=== PATIENT | female | born 1995 | race Caucasian/White ===

== ENCOUNTER 2017-11-30 17:32 | Emergency (ER) | payer OTHER ==
[2017-11-30] MEDS ORDERED: NA CHLORIDE 0.9% 1,000 ML ONE (19:40)
[2017-11-30] MEDS ORDERED: ONDANSETRON 4 MG/2 ML VIAL ONE (19:40)
[2017-11-30 20:04] LABS: Absolute Lymphocytes (CBC) 1.6 K/uL (0.7-4.9); Absolute Monocytes 0.5 K/uL (0.1-1.3); Absolute Neutrophil 13.3 K/uL (1.8-8.0); Basophils % 0.2 % (0-1.3); Eosinophils % 0.1 % (0-4.4); Hematocrit 39.9 % (36.0-45.0); Lymphocytes % 10.4 % (15.3-44.8); MCH 27.2 pg (27.0-35.0); MCV 79.8 fL (80-100); Monocytes % 3.5 % (3.3-12.3); RBC Red Blood Cell Count 4.99 M/uL (3.86-4.86)
[2017-11-30 20:06] LABS: Urine Blood TRACE (NEG); Urine Glucose NEGATIVE (NEG); Urine Protein 2+ (NEG)
[2017-11-30 20:09] LABS: ALT/SGPT 21 U/L (12-78); AST/SGOT 11 U/L (15-37); Albumin 4.4 g/dL (3.4-5.0); Alkaline Phosphatase 63 U/L (45-117); Amylase Level 102 U/L (25-115); BUN Blood Urea Nitrogen 12 mg/dL (7-18); Bicarbonate 22 mmol/L (21-32); Bilirubin Direct < 0.1 mg/dL (0-0.2); Bilirubin Total 0.3 mg/dL (0.2-1.0); Glucose Level 97 mg/dL (74-106); Lipase 78 U/L (73-393); Potassium 3.3 mmol/L (3.5-5.1); Protein, Total 8.9 g/dL (6.4-8.2); Sodium Level 139 mmol/L (136-145)
--- NOTE | 2017-11-30 20:28 | ER ---
Nurse's Notes [facility] Name: Marah Pierce Age: 21 yrs Sex: Female : 1995 Arrival Date: 11/30/2017 Time: 17:33 Bed 30 Private MD: Diagnosis: Vomiting of , unspecified;Hypokalemia; related conditions, unspecified, first trimester Presentation: 11/30 17:43 Presenting complaint: Patient states: "Last time I came to the ER they said I had an aj1 overactive stomach for vomiting. I was told to eat crackers before I get out of bed but I didn't this morning and my nerves are up and I can't eat anything, I tried drinking a Sprite and I even threw that up." Reports abdominal cramping and sore throat, denies diarrhea, fever. States that she is 8 weeks . Transition of care: patient was not received from another setting of care. Onset of symptoms was November 29, 2017. Risk Assessment: Do you want to hurt yourself or someone else? Patient reports no desire to harm self or others. Initial Sepsis Screen: Does the patient meet any 2 criteria? No. Patient's initial sepsis screen is negative. Does the patient have a suspected source of infection? No. Patient's initial sepsis screen is negative. Care prior to arrival: None. 17:43 Method Of Arrival: Ambulatory aj1 17:43 Acuity: TRES 3 aj1 Triage Assessment: 17:49 General: Appears in no apparent distress. uncomfortable, Behavior is calm, cooperative, aj1 appropriate for age. Pain: Complains of pain in right lower quadrant, left lower quadrant, left aspect of posterior pharynx and right aspect of posterior pharynx Pain does not radiate. Pain currently is 5 out of 10 on a pain scale. Quality of pain is described as crampy. GI: Reports nausea, vomiting, Patient currently denies diarrhea. 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 - Social history:: Smoking status: Patient uses tobacco products, denies chronic smoking, but will smoke occasionally. - Ebola Screening: : Patient denies travel to an Ebola-affected area in the 21 days before illness onset. Screenin:10 Abuse screen: Denies threats or abuse. Nutritional screening: Has had N/V for 3 or more mb3 days. Tuberculosis screening: No symptoms or risk factors identified. Fall Risk None identified. Assessment: 21:08 General: Appears in no apparent distress. comfortable, Behavior is calm, cooperative, mb3 appropriate for age. Pain: Denies pain. Neuro: No deficits noted. Cardiovascular: No deficits noted. Respiratory: No deficits noted. GI: Reports nausea, vomiting. GI: Abdomen is flat, Bowel sounds present X 4 quads. Abd is soft and non tender X 4 quads. : No deficits noted. No signs and/or symptoms were reported regarding the genitourinary system. EENT: No deficits noted. No signs and/or symptoms were reported regarding the EENT system. Vital Signs: 17:49 BP 138 / 99; Pulse 98; Resp 18; Temp 98.2; Pulse Ox 99% on R/A; Weight 36.74 kg (R); aj1 Height 4 ft. 11 in. (149.86 cm); Pain 5/10; 18:51 BP 129 / 91; Pulse 76; Resp 16; Pulse Ox 98% on R/A; mt 19:58 BP 120 / 80; Pulse 86; Resp 16; Pulse Ox 100% on R/A; mt 21:11 BP 123 / 79; Pulse 90; Resp 16; Pulse Ox 100% on R/A; mb3 17:49 Body Mass Index 16.36 (36.74 kg, 149.86 cm) aj1 ED Course: 17:33 Patient arrived in ED. sb2 17:46 Triage completed. aj1 17:49 Arm band placed on Patient placed in waiting room, Patient notified of wait time. aj1 18:50 Dennis Kraft, ROVERTO is Primary Nurse. mb3 19:24 Olegario Gomez MD is Attending Physician. emiliano 19:38 Inserted saline lock: 22 gauge in right antecubital area, using aseptic technique. mt Blood collected. 20:28 Joanie White MD is Referral Physician. emiliano 21:09 No provider procedures requiring assistance completed. IV discontinued, intact, mb3 bleeding controlled, No redness/swelling at site. Pressure dressing applied. 21:10 Patient has correct armband on for positive identification. Bed in low position. Call mb3 light in reach. Side rails up X 1. Administered Medications: 19:40 Drug: Zofran 4 mg Route: IVP; Site: right antecubital; mb3 20:44 Follow up: Response: No adverse reaction mb3 19:45 Drug: NS 0.9% 1000 ml Route: IV; Rate: 1 bolus; Site: right antecubital; mb3 20:44 Follow up: Response: No adverse reaction; IV Status: Completed infusion; IV Intake: mb3 1000ml 20:44 Drug: Potassium Chloride 20 mEq Route: PO; mb3 21:11 Follow up: Response: No adverse reaction mb3 Intake: 20:44 IV: 1000ml; Total: 1000ml. mb3 Outcome: 20:28 Discharge ordered by . emiliano 21:10 Discharged to home ambulatory, with family. mb3 21:10 Condition: stable 21:10 Discharge instructions given to patient, Instructed on discharge instructions, follow up and referral plans. medication usage, Demonstrated understanding of instructions, follow-up care, medications, Prescriptions given X 2. 21:12 Patient left the ED. mb3 Signatures: Chasidy Nagel, RN RN aj1 Olegario Gomez MD MD cha Thompson, Moriah mt Billeau, Sheri sb2 Dennis Kraft, RN RN mb3 Corrections: (The following items were deleted from the chart) 17:52 17:43 Presenting complaint: Patient states: "Last time I came to the ER they said I had aj1 an overactive stomach for vomiting. I was told to eat crackers before I get out of bed but I didn't this morning and my nerves are up and I can't eat anything, I tried drinking a Sprite and I even threw that up." Reports abdominal cramping and sore throat, denies diarrhea, fever aj1
--- NOTE | 2017-11-30 20:28 | EDPHYS ---
Physician Documentation [facility] Name: Marah Pierce Age: 21 yrs Sex: Female : 1995 Arrival Date: 11/30/2017 Time: 17:33 Bed 30 Private MD: ED Physician Olegario Gomez HPI: 11/30 20:25 This 21 yrs old Female presents to ER via Ambulatory with complaints of emiliano Nausea/Vomiting. 20:25 The patient presents to the emergency department with nausea, vomiting. Onset: The emiliano symptoms/episode began/occurred 1 week(s) ago. Possible causes: . The symptoms are aggravated by nothing. The symptoms are alleviated by remaining still. Associated signs and symptoms: The patient has no apparent associated signs or symptoms. Severity of symptoms: At their worst the symptoms were. The patient has not experienced similar symptoms in the past. 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 - Social history:: Smoking status: Patient uses tobacco products, denies chronic smoking, but will smoke occasionally. - Ebola Screening: : Patient denies travel to an Ebola-affected area in the 21 days before illness onset. ROS: 20:25 Constitutional: Negative for fever, chills, and weight loss, Eyes: Negative for injury, emiliano pain, redness, and discharge, ENT: Negative for injury, pain, and discharge, Neck: Negative for injury, pain, and swelling, Cardiovascular: Negative for chest pain, palpitations, and edema, Respiratory: Negative for shortness of breath, cough, wheezing, and pleuritic chest pain, Back: Negative for injury and pain, : Negative for injury, bleeding, discharge, and swelling, MS/Extremity: Negative for injury and deformity, Skin: Negative for injury, rash, and discoloration, Neuro: Negative for headache, weakness, numbness, tingling, and seizure, Psych: Negative for depression, anxiety, suicide ideation, homicidal ideation, and hallucinations, Allergy/Immunology: Negative for hives, rash, and allergies, Endocrine: Negative for neck swelling, polydipsia, polyuria, polyphagia, and marked weight changes, Hematologic/Lymphatic: Negative for swollen nodes, abnormal bleeding, and unusual bruising. 20:25 Abdomen/GI: Positive for nausea and vomiting. Exam: 20:25 Constitutional: This is a well developed, well nourished patient who is awake, alert, emiliano and in no acute distress. Head/Face: Normocephalic, atraumatic. Eyes: Pupils equal round and reactive to light, extra-ocular motions intact. Lids and lashes normal. Conjunctiva and sclera are non-icteric and not injected. Cornea within normal limits. Periorbital areas with no swelling, redness, or edema. ENT: Nares patent. No nasal discharge, no septal abnormalities noted. Tympanic membranes are normal and external auditory canals are clear. Oropharynx with no redness, swelling, or masses, exudates, or evidence of obstruction, uvula midline. Mucous membranes moist. Neck: Trachea midline, no thyromegaly or masses palpated, and no cervical lymphadenopathy. Supple, full range of motion without nuchal rigidity, or vertebral point tenderness. No Meningismus. Chest/axilla: Normal chest wall appearance and motion. Nontender with no deformity. No lesions are appreciated. Cardiovascular: Regular rate and rhythm with a normal S1 and S2. No gallops, murmurs, or rubs. Normal PMI, no JVD. No pulse deficits. Respiratory: Lungs have equal breath sounds bilaterally, clear to auscultation and percussion. No rales, rhonchi or wheezes noted. No increased work of breathing, no retractions or nasal flaring. Back: No spinal tenderness. No costovertebral tenderness. Full range of motion. Female : Normal external genitalia. Skin: Warm, dry with normal turgor. Normal color with no rashes, no lesions, and no evidence of cellulitis. MS/ Extremity: Pulses equal, no cyanosis. Neurovascular intact. Full, normal range of motion. Neuro: Awake and alert, GCS 15, oriented to person, place, time, and situation. Cranial nerves II-XII grossly intact. Motor strength 5/5 in all extremities. Sensory grossly intact. Cerebellar exam normal. Normal gait. Psych: Awake, alert, with orientation to person, place and time. Behavior, mood, and affect are within normal limits. Vital Signs: 17:49 BP 138 / 99; Pulse 98; Resp 18; Temp 98.2; Pulse Ox 99% on R/A; Weight 36.74 kg (R); aj1 Height 4 ft. 11 in. (149.86 cm); Pain 5/10; 18:51 BP 129 / 91; Pulse 76; Resp 16; Pulse Ox 98% on R/A; mt 19:58 BP 120 / 80; Pulse 86; Resp 16; Pulse Ox 100% on R/A; mt 21:11 BP 123 / 79; Pulse 90; Resp 16; Pulse Ox 100% on R/A; mb3 17:49 Body Mass Index 16.36 (36.74 kg, 149.86 cm) aj1 MDM: 19:24 Patient medically screened. [facility] 11/30 19:00 Order name: Urine Dipstick--Ancillary (enter results); Complete Time: 20:24 11/30 19:00 Order name: Urine --Ancillary (enter results); Complete Time: 20:24 11/30 19:24 Order name: Amylase, Serum; Complete Time: 20:24 [facility] 11/30 19:24 Order name: Basic Metabolic Panel; Complete Time: 20:24 [facility] 11/30 19:24 Order name: CBC with Diff [facility] 11/30 19:24 Order name: Creatinine for Radiology; Complete Time: 20:24 [facility] 11/30 19:24 Order name: Urine Test (obtain specimen); Complete Time: 19:38 [facility] 11/30 19:24 Order name: Hepatic Function; Complete Time: 20:24 [facility] 11/30 19:24 Order name: Lipase; Complete Time: 20:24 [facility] 11/30 20:06 Order name: CBC Smear Scan [facility] 11/30 19:24 Order name: IV Saline Lock; Complete Time: 19:38 [facility] 11/30 19:24 Order name: Labs collected and sent; Complete Time: 19:38 [facility] 11/30 19:24 Order name: Urine Dipstick-Ancillary (obtain specimen); Complete Time: 19:38 [facility] Administered Medications: 19:40 Drug: Zofran 4 mg Route: IVP; Site: right antecubital; mb3 20:44 Follow up: Response: No adverse reaction mb3 19:45 Drug: NS 0.9% 1000 ml Route: IV; Rate: 1 bolus; Site: right antecubital; mb3 20:44 Follow up: Response: No adverse reaction; IV Status: Completed infusion; IV Intake: mb3 1000ml 20:44 Drug: Potassium Chloride 20 mEq Route: PO; mb3 21:11 Follow up: Response: No adverse reaction mb3 Disposition: 11/30/17 20:28 Discharged to Home. Impression: Vomiting of , unspecified, Hypokalemia, related conditions, unspecified, first trimester. - Condition is Stable. - Discharge Instructions: Potassium Content of Foods, Hyperemesis Gravidarum, Morning Sickness, [id number], Morning Sickness, Pelvic Rest, Hypokalemia. - Prescriptions for Diclegis 10- 10 mg Oral tablet,delayed release (DR/EC) - take 1 tablet by ORAL route 3 times per day and 2 tablets at bedtime; 60 tablet. Vitamin 27- 0.8 mg Oral Tablet - take 1 tablet by ORAL route once daily; 30 tablet. Zofran 4 mg Oral Tablet - take 1 tablet by ORAL route every 12 hours As needed; 20 tablet. - Medication Reconciliation Form, Thank You Letter, Antibiotic Education, Prescription Opioid Use form. - Follow up: Private Physician; When: 2 - 3 days; Reason: Recheck today's complaints, Continuance of care, Re-evaluation by your physician. Follow up: Joanie White MD; When: 2 - 3 days; Reason: Recheck today's complaints, Re-evaluation by your physician. - Problem is new. - Symptoms have improved. Signatures: Dispatcher [employer] EDChasidy Phillips RN RN aj1 Olegario Gomez MD MD cha Barnett, Mark RN RN mb3 Corrections: (The following items were deleted from the chart) 20:28 20:28 11/30/2017 20:28 Discharged to Home. Impression: Vomiting of , emiliano unspecified; Hypokalemia; related conditions, unspecified, first trimester. Condition is Stable. Forms are Medication Reconciliation Form, Thank You Letter, Antibiotic Education, Prescription Opioid Use. Follow up: Private Physician; When: 2 - 3 days; Reason: Recheck today's complaints, Continuance of care, Re-evaluation by your physician. Problem is new. Symptoms have improved. emiliano 21:12 20:28 11/30/2017 20:28 Discharged to Home. Impression: Vomiting of , mb3 unspecified; Hypokalemia; related conditions, unspecified, first trimester. Condition is Stable. Forms are Medication Reconciliation Form, Thank You Letter, Antibiotic Education, Prescription Opioid Use. Follow up: Private Physician; When: 2 - 3 days; Reason: Recheck today's complaints, Continuance of care, Re-evaluation by your physician. Follow up: Joanie White; When: 2 - 3 days; Reason: Recheck today's complaints, Re-evaluation by your physician. Problem is new. Symptoms have improved. emiliano
[2017-11-30 20:35] LABS: Blood Morphology Comment NOT SEEN (NOT SEEN); Platelet Estimate ADEQ; Urine White Blood Cell Casts OK
[2017-11-30] MEDS ORDERED: POTASSIUM 25 MEQ EFFERV TAB ONE (20:41)
== END 2017-11-30 21:12 | disposition home or self-care (01) ==
LOC: ER 17:32
DX: O21.9 Vomiting of pregnancy, unspecified (principal); E87.6 Hypokalemia; Z88.7 Allergy status to serum and vaccine; Z3A.00 Weeks of gestation of pregnancy not specified
CPT/HCPCS: 36415; 80048; 80076; 81003; 81025; 82150; 83690; 85025; 96361; 96374; 99284; J2405; J7030

== ENCOUNTER 2018-09-07 18:37 | Emergency (ER) | payer OTHER ==
--- OUTSIDE RECORDS SUMMARY | 2018-09-07 18:45 | XMS REPORT ---
:1995 [facility] Address [address] [place] [address] Dr. Blanchard [address] [place] [id number] Care Team Providers Name Role Phone Unavailable Unavailable Unavailable Problems This patient has no known problems. Allergies, Adverse Reactions, Alerts This patient has no known allergies or adverse reactions. Medications This patient has no known medications.
[2018-09-07] MEDS ORDERED: NA CHLORIDE 0.9% 1,000 ML ONE (19:26)
[2018-09-07] MEDS ORDERED: ONDANSETRON 4 MG/2 ML VIAL ONE (19:26)
[2018-09-07 19:51] LABS: Absolute Lymphocytes (CBC) 1.5 K/uL (0.7-4.9); Absolute Monocytes 0.6 K/uL (0.1-1.3); Absolute Neutrophil 9.7 K/uL (1.8-8.0); Basophils % 0.1 % (0-1.3); Eosinophils % 1.1 % (0-4.4); Hematocrit 47.9 % (36.0-45.0); Lymphocytes % 12.9 % (15.3-44.8); MPV 9.6 fL (7.6-11.3); Monocytes % 4.8 % (3.3-12.3); RBC Red Blood Cell Count 5.89 M/uL (3.86-4.86)
[2018-09-07 20:08] LABS: Albumin 4.8 g/dL (3.4-5.0); Bilirubin Direct 0.1 mg/dL (0-0.2); Bilirubin Total 0.6 mg/dL (0.2-1.0); Potassium 3.5 mmol/L (3.5-5.1); Protein, Total 8.7 g/dL (6.4-8.2)
--- NOTE | 2018-09-07 21:02 | ER ---
Nurse's Notes [facility] Name: Marah Pierce Age: 22 yrs Sex: Female : 1995 Arrival Date: 09/07/2018 Time: 18:43 Bed 16 Private MD: Diagnosis: Noninfective gastroenteritis and colitis, unspecified Presentation: 09/07 18:48 Presenting complaint: N/V/D and abdominal pain x 3 hrs. Transition of care: patient was hb not received from another setting of care. Onset of symptoms was September 07, 2018. Risk Assessment: Do you want to hurt yourself or someone else? Patient reports no desire to harm self or others. Care prior to arrival: None. 18:48 Method Of Arrival: Ambulatory hb 18:48 Acuity: TRES 3 hb 19:08 Initial Sepsis Screen: Does the patient meet any 2 criteria? No. Patient's initial cc3 sepsis screen is negative. Does the patient have a suspected source of infection? No. Patient's initial sepsis screen is negative. Triage Assessment: 19:08 General: Appears in no apparent distress. comfortable, Behavior is calm, cooperative, cc3 appropriate for age. Pain: Denies pain. EENT: No signs and/or symptoms were reported regarding the EENT system. Neuro: Level of Consciousness is awake, alert, obeys commands, Oriented to person, place, time, situation, Appropriate for age. Cardiovascular: Patient's skin is warm and dry. Respiratory: Airway is patent Respiratory effort is even, unlabored, Respiratory pattern is regular, symmetrical. GI: Reports vomiting. : No signs and/or symptoms were reported regarding the genitourinary system. Derm: No signs and/or symptoms reported regarding the dermatologic system. Musculoskeletal: Circulation, motion, and sensation intact. Range of motion: intact in all extremities. Historical: - Allergies: 18:49 flu shot; hb - Home Meds: 18:49 promethazine suppository [Active]; hb - PSHx: 18:49 None; hb - Immunization history:: Adult Immunizations up to date. - Social history:: Smoking status: Patient uses tobacco products, smokes one-half pack cigarettes per day. - Ebola Screening: : No symptoms or risks identified at this time. Screenin:08 Abuse screen: Denies threats or abuse. Denies injuries from another. Nutritional cc3 screening: No deficits noted. Tuberculosis screening: No symptoms or risk factors identified. Fall Risk Ambulatory Aid- None/Bed Rest/Nurse Assist (0 pts). Gait- Normal/Bed Rest/Wheelchair (0 pts) Mental Status- Oriented to own ability (0 pts). Assessment: 19:08 GI: Abdomen is flat. cc3 20:12 Reassessment: Patient appears in no apparent distress at this time. Patient and/or cc3 family updated on plan of care and expected duration. Pain level reassessed. Patient is alert, oriented x 3, equal unlabored respirations, skin warm/dry/pink. 21:15 Reassessment: Patient appears in no apparent distress at this time. Patient and/or cc3 family updated on plan of care and expected duration. Pain level reassessed. Patient is alert, oriented x 3, equal unlabored respirations, skin warm/dry/pink. ROSE Yoder discharged the patient home with prescription given. IV cannula removed and patient left ER vitally stable and ambulatory. Vital Signs: 18:48 BP 127 / 83; Pulse 88; Resp 16; Temp 97.8; Pulse Ox 100% on R/A; Pain 9/10; hb 19:30 BP 121 / 77; Pulse 82; Resp 15 S; Pulse Ox 100% on R/A; cc3 20:19 BP 118 / 81; Pulse 84; Resp 15 S; Pulse Ox 100% on R/A; cc3 21:06 BP 120 / 79; Pulse 87; Resp 16 S; Pulse Ox 99% on R/A; cc3 ED Course: 18:43 Patient arrived in ED. ss4 18:49 Triage completed. hb 18:49 Arm band placed on. hb 18:53 [facility]. kb 18:53 Josse Peres MD is Attending Physician. kb 19:08 Parvin Tilley is Primary Nurse. cc3 19:08 Patient has correct armband on for positive identification. Bed in low position. Call cc3 light in reach. Side rails up X 1. Pulse ox on. NIBP on. 19:30 Inserted saline lock: 20 gauge in left antecubital area, using aseptic technique. Blood cc3 collected. 21:15 No provider procedures requiring assistance completed. cc3 21:15 IV discontinued, intact, bleeding controlled, No redness/swelling at site. Pressure cc3 dressing applied. Administered Medications: 19:30 Drug: NS 0.9% 1000 ml Route: IV; Rate: 1000 ml; Site: left antecubital; cc3 20:35 Follow up: Response: No adverse reaction; IV Status: Completed infusion; IV Intake: cc3 1000ml 19:32 Drug: Zofran 4 mg Route: IVP; Site: left antecubital; cc3 20:00 Follow up: Response: No adverse reaction; Nausea is decreased cc3 Intake: 20:35 IV: 1000ml; Total: 1000ml. cc3 Outcome: 21:01 Discharge ordered by . viri 21:15 Discharged to home ambulatory. cc3 21:15 Condition: stable 21:15 Discharge instructions given to patient, Instructed on discharge instructions, follow up and referral plans. medication usage, Demonstrated understanding of instructions, follow-up care, medications, Prescriptions given X 2. 21:18 Patient left the ED. cc3 Signatures: Angela Yoder, CARMELINAC ZULEMA-Carola Dai, RN RN Parvin Davis cc3 Paz Cao 4
--- NOTE | 2018-09-07 21:02 | EDPHYS ---
Physician Documentation [facility] Name: Marah Pierce Age: 22 yrs Sex: Female : 1995 Arrival Date: 09/07/2018 Time: 18:43 Bed 16 Private MD: ED Physician Josse Peres HPI: 09/07 20:34 This 22 yrs old Female presents to ER via Ambulatory with complaints of kb Vomiting. 20:34 The patient presents to the emergency department with nausea, vomiting, diarrhea, kb abdominal pain. Onset: The symptoms/episode began/occurred this morning. Possible causes: unknown. The symptoms are aggravated by nothing. The symptoms are alleviated by nothing. Associated signs and symptoms: Pertinent positives: abdominal pain, diarrhea, nausea, vomiting. Severity of symptoms: At their worst the symptoms were moderate in the emergency department the symptoms are unchanged. The patient has not experienced similar symptoms in the past. The patient has not recently seen a physician. Pt reports she woke up with nausea, malaise and diarrhea. 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 Denies fever. Denies sick contacts. Historical: - Allergies: 18:49 flu shot; hb - Home Meds: 18:49 promethazine suppository [Active]; hb - PSHx: 18:49 None; hb - Immunization history:: Adult Immunizations up to date. - Social history:: Smoking status: Patient uses tobacco products, smokes one-half pack cigarettes per day. - Ebola Screening: : No symptoms or risks identified at this time. ROS: 20:31 Constitutional: Negative for fever, chills, and weight loss, Cardiovascular: Negative kb for chest pain, palpitations, and edema, Respiratory: Negative for shortness of breath, cough, wheezing, and pleuritic chest pain, Back: Negative for injury and pain, : Negative for injury, bleeding, discharge, and swelling, MS/Extremity: Negative for injury and deformity, Skin: Negative for injury, rash, and discoloration, Neuro: Negative for headache, weakness, numbness, tingling, and seizure. 20:31 Abdomen/GI: Positive for abdominal pain, nausea, vomiting, and diarrhea, Negative for constipation, abdominal cramps, abdominal distension, anorexia. Exam: 20:31 Constitutional: This is a well developed, well nourished patient who is awake, alert, kb and in no acute distress. Head/Face: Normocephalic, atraumatic. ENT: Nares patent. No nasal discharge, no septal abnormalities noted. Tympanic membranes are normal and external auditory canals are clear. Oropharynx with no redness, swelling, or masses, exudates, or evidence of obstruction, uvula midline. Mucous membranes moist. Neck: Trachea midline, no thyromegaly or masses palpated, and no cervical lymphadenopathy. Supple, full range of motion without nuchal rigidity, or vertebral point tenderness. No Meningismus. Chest/axilla: Normal chest wall appearance and motion. Nontender with no deformity. No lesions are appreciated. Cardiovascular: Regular rate and rhythm with a normal S1 and S2. No gallops, murmurs, or rubs. Normal PMI, no JVD. No pulse deficits. Respiratory: Lungs have equal breath sounds bilaterally, clear to auscultation and percussion. No rales, rhonchi or wheezes noted. No increased work of breathing, no retractions or nasal flaring. Abdomen/GI: Soft, non-tender, with normal bowel sounds. No distension or tympany. No guarding or rebound. No evidence of tenderness throughout. Skin: Warm, dry with normal turgor. Normal color with no rashes, no lesions, and no evidence of cellulitis. MS/ Extremity: Pulses equal, no cyanosis. Neurovascular intact. Full, normal range of motion. Neuro: Awake and alert, GCS 15, oriented to person, place, time, and situation. Cranial nerves II-XII grossly intact. Motor strength 5/5 in all extremities. Sensory grossly intact. Cerebellar exam normal. Normal gait. Vital Signs: 18:48 BP 127 / 83; Pulse 88; Resp 16; Temp 97.8; Pulse Ox 100% on R/A; Pain 9/10; hb 19:30 BP 121 / 77; Pulse 82; Resp 15 S; Pulse Ox 100% on R/A; cc3 20:19 BP 118 / 81; Pulse 84; Resp 15 S; Pulse Ox 100% on R/A; cc3 21:06 BP 120 / 79; Pulse 87; Resp 16 S; Pulse Ox 99% on R/A; cc3 MDM: 18:53 Patient medically screened. kb 20:33 Data reviewed: vital signs, nurses notes. Data interpreted: Pulse oximetry: on room air kb is 100 %. Interpretation: normal. Counseling: I had a detailed discussion with the patient and/or guardian regarding: the historical points, exam findings, and any diagnostic results supporting the discharge/admit diagnosis, lab results, the need for outpatient follow up, a family practitioner, to return to the emergency department if symptoms worsen or persist or if there are any questions or concerns that arise at home. 09/07 19:05 Order name: Basic Metabolic Panel; Complete Time: 20:09 kb 09/07 19:05 Order name: CBC with Diff; Complete Time: 19:57 kb 09/07 19:05 Order name: Hepatic Function; Complete Time: 20:09 kb 09/07 19:05 Order name: Lipase; Complete Time: 20:09 kb 09/07 19:05 Order name: Flu; Complete Time: 20:09 kb 09/07 19:05 Order name: IV Saline Lock; Complete Time: 19:37 kb 09/07 19:05 Order name: Labs collected and sent; Complete Time: 19:37 kb 09/07 20:35 Order name: PO challenge; Complete Time: 20:57 kb Administered Medications: 19:30 Drug: NS 0.9% 1000 ml Route: IV; Rate: 1000 ml; Site: left antecubital; cc3 20:35 Follow up: Response: No adverse reaction; IV Status: Completed infusion; IV Intake: cc3 1000ml 19:32 Drug: Zofran 4 mg Route: IVP; Site: left antecubital; cc3 20:00 Follow up: Response: No adverse reaction; Nausea is decreased cc3 Disposition: 09/08 07:20 Co-signature as Attending Physician, Josse Peres MD I agree with the assessment and kdr plan of care. Disposition: 09/07/18 21:01 Discharged to Home. Impression: Noninfective gastroenteritis and colitis, unspecified. - Condition is Stable. - Discharge Instructions: Food Choices to Help Relieve Diarrhea, Adult, Viral Gastroenteritis, Adult, [id number]. - Prescriptions for Bentyl 20 mg Oral Tablet - take 1 tablet by ORAL route every 6 hours As needed; 20 tablet. Zofran 4 mg Oral Tablet - take 1 tablet by ORAL route every 6 hours As needed; 20 tablet. - Medication Reconciliation Form, Thank You Letter, Antibiotic Education, Prescription Opioid Use form. - Follow up: Emergency Department; When: As needed; Reason: Worsening of condition. Follow up: Private Physician; When: 2 - 3 days; Reason: Recheck today's complaints, Continuance of care, Re-evaluation by your physician. Signatures: Dispatcher [employer] EDMS Angela Yoder, FRONT OFFICE ATTENDANT-C FRONT OFFICE ATTENDANT-Ckb Josse Peres MD MD [facility] Carola Santo RN RN Parvin Tilley cc3 Corrections: (The following items were deleted from the chart) 09/07 21:18 21:01 09/07/2018 21:01 Discharged to Home. Impression: Noninfective gastroenteritis and cc3 colitis, unspecified. Condition is Stable. Forms are Medication Reconciliation Form, Thank You Letter, Antibiotic Education, Prescription Opioid Use. Follow up: Emergency Department; When: As needed; Reason: Worsening of condition. Follow up: Private Physician; When: 2 - 3 days; Reason: Recheck today's complaints, Continuance of care, Re-evaluation by your physician. kb
== END 2018-09-07 21:18 | disposition home or self-care (01) ==
LOC: ER 18:37
DX: K52.9 Noninfective gastroenteritis and colitis, unspecified (principal); Z88.7 Allergy status to serum and vaccine
CPT/HCPCS: 36415; 80048; 80076; 83690; 85025; 87804; 96361; 96374; 99284; J2405; J7030

== ENCOUNTER 2018-11-29 19:41 | Emergency (ER) | payer OTHER ==
--- OUTSIDE RECORDS SUMMARY | 2018-11-29 19:44 | XMS REPORT ---
:1995 Author Organization [facility] Address [facility] [place] [address] [place] [id number] Care Team Providers Name Role Phone Unavailable Unavailable Unavailable Problems This patient has no known problems. Allergies, Adverse Reactions, Alerts This patient has no known allergies or adverse reactions. Medications This patient has no known medications.
[2018-11-29] MEDS ORDERED: KETOROLAC 30 MG/ML INJ ONE (21:14)
[2018-11-29] MEDS ORDERED: DEXAMETHASONE 10 MG/ML VIAL ONE (21:14)
[2018-11-29] MEDS ORDERED: CLINDAMYCIN 600MG/D5W 600 MG/50 ML BAG IV ONE (21:14)
--- NOTE | 2018-11-29 21:37 | ER ---
Nurse's Notes [facility] Name: Marah Pierce Age: 22 yrs Sex: Female : 1995 Arrival Date: 11/29/2018 Time: 19:44 Bed 24 Private MD: Diagnosis: Acute pharyngitis Presentation: 11/29 19:45 Presenting complaint: Patient states: Abscess to left tonsil for 5 days. Care prior to aj arrival: None. 19:45 Method Of Arrival: Ambulatory aj 19:45 Acuity: TRES 3 aj 21:17 Transition of care: patient was not received from another setting of care. Onset of mg2 symptoms was November 2018. Risk Assessment: Do you want to hurt yourself or someone else? Patient reports no desire to harm self or others. Initial Sepsis Screen: Does the patient meet any 2 criteria? No. Patient's initial sepsis screen is negative. Does the patient have a suspected source of infection? No. Patient's initial sepsis screen is negative. Triage Assessment: 19:46 General: Appears in no apparent distress. comfortable, Behavior is calm, cooperative, aj appropriate for age. Pain: Complains of pain in left aspect of posterior pharynx. EENT: Reports pain in left aspect of posterior pharynx. 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 - Social history:: Smoking status: unknown. - Ebola Screening: : No symptoms or risks identified at this time. Screenin:15 Abuse screen: Denies threats or abuse. Denies injuries from another. Nutritional mg2 screening: No deficits noted. Tuberculosis screening: No symptoms or risk factors identified. Fall Risk IV access (20 points). Assessment: 21:13 General: Appears in no apparent distress. comfortable, Behavior is calm, cooperative. mg2 Pain: Complains of pain in throat Pain does not radiate. Pain currently is 4 out of 10 on a pain scale. Quality of pain is described as aching, Pain began gradually, Is intermittent. Neuro: Level of Consciousness is awake, alert, obeys commands, Oriented to person, place, time, situation. Cardiovascular: Capillary refill < 3 seconds Patient's skin is warm and dry. Respiratory: Airway is patent Respiratory effort is even, unlabored, Respiratory pattern is regular, symmetrical. GI: No signs and/or symptoms were reported involving the gastrointestinal system. : No signs and/or symptoms were reported regarding the genitourinary system. EENT: Throat abscess in the tonsil. Derm: Skin is intact, is healthy with good turgor, Skin is pink, warm \T\ dry. normal. Musculoskeletal: Circulation, motion, and sensation intact. Capillary refill < 3 seconds. Vital Signs: 19:46 BP 133 / 85; Pulse 89; Resp 17; Temp 97.7; Pulse Ox 99% on R/A; Weight 35.38 kg; Height aj 4 ft. 11 in. (149.86 cm); 21:17 BP 106 / 78; Pulse 72; Resp 18; Temp 98; Pulse Ox 98% on R/A; mg2 21:55 BP 103 / 72; Pulse 80; Resp 18; Temp 98; Pulse Ox 100% on R/A; Pain 4/10; mg2 19:46 Body Mass Index 15.75 (35.38 kg, 149.86 cm) ED Course: 19:44 Patient arrived in ED. es 19:46 Triage completed. aj 19:46 Arm band placed on left wrist. Patient placed in an exam room. aj 19:49 Rich Burgos, ROVERTO is Primary Nurse. mg2 19:56 Richard Guerra PA is PHCP. jr8 19:56 Olegario Gomez MD is Attending Physician. jr8 21:16 No provider procedures requiring assistance completed. Inserted saline lock: 20 gauge mg2 in right antecubital area, using aseptic technique. Blood collected. by Nesha grounds and nursery specialist. 21:17 Patient has correct armband on for positive identification. Pulse ox on. NIBP on. mg2 21:36 Paz Lantigua MD is Referral Physician. jr8 21:55 IV discontinued, intact, bleeding controlled, No redness/swelling at site. Pressure mg2 dressing applied. Administered Medications: 21:13 Drug: Decadron - Dexamethasone 10 mg Route: IVP; Site: right antecubital; mg2 21:59 Follow up: Response: No adverse reaction; Marked relief of symptoms mg2 21:13 Drug: Clindamycin 600 mg Route: IVPB; Infused Over: 30 mins; Site: right antecubital; mg2 21:58 Follow up: Response: No adverse reaction; IV Status: Completed infusion mg2 21:13 Drug: TORadol - Ketorolac 15 mg Route: IVP; Site: right antecubital; mg2 21:57 Follow up: Response: No adverse reaction; Marked relief of symptoms mg2 21:58 Follow up: Response: No adverse reaction; Marked relief of symptoms mg2 Outcome: 21:37 Discharge ordered by MD. oglesby 21:55 Discharged to home ambulatory, with family. mg2 21:55 Condition: stable 21:55 Discharge instructions given to patient, family, Instructed on discharge instructions, follow up and referral plans. medication usage, Demonstrated understanding of instructions, follow-up care, medications, Prescriptions given X 3. 22:02 Patient left the ED. mg2 Signatures: Vy Barclay, RN RN Farida Kramer Josh, PA PA jr8 Rich Burgos RN RN mg2
--- NOTE | 2018-11-29 21:38 | EDPHYS ---
Physician Documentation [facility] Name: Marah Pierce Age: 22 yrs Sex: Female : 1995 Arrival Date: 11/29/2018 Time: 19:44 Bed 24 Private MD: ED Physician Olegario Gomez HPI: 11/29 20:44 This 22 yrs old Female presents to ER via Ambulatory with complaints of jr8 Abscess. 20:44 The patient presents with sore throat. The patient describes throat pain as constant. jr8 Onset: The symptoms/episode began/occurred gradually, 5 day(s) ago. Severity of symptoms: At their worst the symptoms were mild, in the emergency department the symptoms are unchanged. Modifying factors: The symptoms are alleviated by nothing, the symptoms are aggravated by swallowing, Patient's oral intake status: good. Associated signs and symptoms: The patient has no apparent associated signs or symptoms. The patient has experienced similar episodes in the past, a few times. The patient has not recently seen a physician. Patient stated that she has had peritonsillar abscesses in the past and feels that she has another one. Denies fevers . 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 - Social history:: Smoking status: unknown. - Ebola Screening: : No symptoms or risks identified at this time. ROS: 20:44 Eyes: Negative for injury, pain, redness, and discharge, Neck: Negative for injury, jr8 pain, and swelling, Cardiovascular: Negative for chest pain, palpitations, and edema, Respiratory: Negative for shortness of breath, cough, wheezing, and pleuritic chest pain, Abdomen/GI: Negative for abdominal pain, nausea, vomiting, diarrhea, and constipation, Back: Negative for injury and pain, MS/Extremity: Negative for injury and deformity, Skin: Negative for injury, rash, and discoloration, Neuro: Negative for headache, weakness, numbness, tingling, and seizure. 20:44 Constitutional: Negative for fever. 20:44 ENT: Positive for sore throat, Negative for drainage from ear(s), ear pain, rhinorrhea, sinus congestion, sinus pain, difficulty swallowing, difficulty handling secretions, hoarseness. Exam: 20:44 Eyes: Pupils equal round and reactive to light, extra-ocular motions intact. Lids and jr8 lashes normal. Conjunctiva and sclera are non-icteric and not injected. Cornea within normal limits. Periorbital areas with no swelling, redness, or edema. Neck: Trachea midline, no thyromegaly or masses palpated, and no cervical lymphadenopathy. Supple, full range of motion without nuchal rigidity, or vertebral point tenderness. No Meningismus. Cardiovascular: Regular rate and rhythm with a normal S1 and S2. No gallops, murmurs, or rubs. Normal PMI, no JVD. No pulse deficits. Respiratory: Lungs have equal breath sounds bilaterally, clear to auscultation and percussion. No rales, rhonchi or wheezes noted. No increased work of breathing, no retractions or nasal flaring. Abdomen/GI: Soft, non-tender, with normal bowel sounds. No distension or tympany. No guarding or rebound. No evidence of tenderness throughout. Back: No spinal tenderness. No costovertebral tenderness. Full range of motion. Skin: Warm, dry with normal turgor. Normal color with no rashes, no lesions, and no evidence of cellulitis. MS/ Extremity: Pulses equal, no cyanosis. Neurovascular intact. Full, normal range of motion. Neuro: Awake and alert, GCS 15, oriented to person, place, time, and situation. Cranial nerves II-XII grossly intact. Motor strength 5/5 in all extremities. Sensory grossly intact. Cerebellar exam normal. Normal gait. 20:44 ENT: Exam is negative for earache, ear discharge, TM abnormalities, nasal discharge, Mouth: Lips: moist, Oral mucosa: pink and intact, moist, Gums: pink, Tongue: is moist, Posterior pharynx: Airway: patent, Tonsils: are normal in appearance, with erythema, no exudate, no ulcerations, Uvula: midline, non-edematous, no erythema, swelling, is not appreciated, erythema, that is mild, Mild swelling noted to left peritonsillar region without fluctuance or pustulous mass . Vital Signs: 19:46 BP 133 / 85; Pulse 89; Resp 17; Temp 97.7; Pulse Ox 99% on R/A; Weight 35.38 kg; Height aj 4 ft. 11 in. (149.86 cm); 21:17 BP 106 / 78; Pulse 72; Resp 18; Temp 98; Pulse Ox 98% on R/A; mg2 21:55 BP 103 / 72; Pulse 80; Resp 18; Temp 98; Pulse Ox 100% on R/A; Pain 4/10; mg2 19:46 Body Mass Index 15.75 (35.38 kg, 149.86 cm) aj MDM: 19:57 Patient medically screened. jr8 20:44 Data reviewed: vital signs, nurses notes, and as a result, I will discharge patient. jr8 Data interpreted: Pulse oximetry: on room air is 99 %. Interpretation: normal. Counseling: I had a detailed discussion with the patient and/or guardian regarding: the historical points, exam findings, and any diagnostic results supporting the discharge/admit diagnosis, the need for outpatient follow up, an ENT specialist, to return to the emergency department if symptoms worsen or persist or if there are any questions or concerns that arise at home. Response to treatment: the patient's symptoms have markedly improved after treatment. ED course: Discussed with patient that there is only mild increase in size on left peritonsillar region when compared to right. Equal erythema noted on both sides. No appreciated fluctuance palpated. At this time if there is a peritonsillar abscess it is minimal in nature. Treatment with steroids and antibiotics reasonable at this time along with f/u with ENT. If at any point she gets worse or the area starts to swell to come back for further evaluation. Patient good with this plan and will f/u. 11/29 20:28 Order name: IV; Complete Time: 20:41 jr8 Administered Medications: 21:13 Drug: Decadron - Dexamethasone 10 mg Route: IVP; Site: right antecubital; mg2 21:59 Follow up: Response: No adverse reaction; Marked relief of symptoms mg2 21:13 Drug: Clindamycin 600 mg Route: IVPB; Infused Over: 30 mins; Site: right antecubital; mg2 21:58 Follow up: Response: No adverse reaction; IV Status: Completed infusion mg2 21:13 Drug: TORadol - Ketorolac 15 mg Route: IVP; Site: right antecubital; mg2 21:57 Follow up: Response: No adverse reaction; Marked relief of symptoms mg2 21:58 Follow up: Response: No adverse reaction; Marked relief of symptoms mg2 Disposition: 11/30 08:23 Co-signature as Attending Physician, Olegario Gomez MD I agree with the assessment and emiliano plan of care. Disposition: 11/29/18 21:37 Discharged to Home. Impression: Acute pharyngitis. - Condition is Stable. - Discharge Instructions: Peritonsillar Abscess, Pharyngitis. - Prescriptions for ketorolac 10 mg Oral tablet - take 1 tablet by ORAL route every 6 hours As needed not to exceed 40 mg in 24hrs; 12 tablet. Clindamycin HCl 300 mg Oral Capsule - take 1 capsule by ORAL route every 6 hours for 10 days; 40 capsule. Prednisone 20 mg Oral Tablet - take 2 tablet by ORAL route once daily for 5 days; 10 tablet. - Medication Reconciliation Form, Thank You Letter, Antibiotic Education, Prescription Opioid Use form. - Follow up: Paz Lantigua MD; When: 24 Hours; Reason: Recheck today's complaints, Continuance of care, Re-evaluation by your physician. - Problem is new. - Symptoms have improved. Signatures: Vy Barclay, RN RN Olegario Dumont MD MD cha Roszak, Josh, PA PA jr8 Rich Burgos RN RN mg2 Corrections: (The following items were deleted from the chart) 11/29 22:02 21:37 11/29/2018 21:37 Discharged to Home. Impression: Acute pharyngitis. Condition is mg2 Stable. Forms are Medication Reconciliation Form, Thank You Letter, Antibiotic Education, Prescription Opioid Use. Follow up: Paz Lantigua; When: 24 Hours; Reason: Recheck today's complaints, Continuance of care, Re-evaluation by your physician. Problem is new. Symptoms have improved. jr8
== END 2018-11-29 22:02 | disposition home or self-care (01) ==
LOC: ER 19:41
DX: J02.9 Acute pharyngitis, unspecified (principal)
CPT/HCPCS: 96365; 96375; 99284; J1100

== ENCOUNTER 2019-10-29 22:29 | Emergency (ER) | payer OTHER ==
--- OUTSIDE RECORDS SUMMARY | 2019-10-29 22:31 | XMS REPORT | Summary of Care ---
:1995 Author Organization [facility] - Health Address [address] [place] [address] Care Team Providers Name Role Phone Pcp, Does Not Have A Primary Care Provider Encounter Details Date Type Department Care Team Description 07/08/2019 Orders Only [facility] Doctor Unassigned, No [address] [facility] [place] [address] [address] [place] [address] Allergies Active Allergy Reactions Severity Noted Date Comments Flu Vac Qv Live 2017 (2-49yrs) Swelling 10/21/2017 documented as of this encounter (statuses as of 07/08/2019) Medications Medication Sig Dispensed Refills Start Date End Date Status ferrous sulfate 325 Take 1 tablet by 60 tablet 2 05/26/2018 Active mg (65 mg iron) mouth 2 (two) tablet times daily. docusate calcium 240 Take 1 capsule by 60 capsule 1 05/26/2018 Active mg capsule mouth once daily as needed for Constipation. ibuprofen 600 mg Take 1 tablet by 60 tablet 1 05/26/2018 Active tablet mouth every 6 (six) hours as needed for Pain (scale 1-3) or Pain (scale 4-6) (Pain). Take with food or milk. vitamin w/FA Take 1 tablet by 100 tablet 3 05/26/2018 Active tablet mouth daily. documented as of this encounter (statuses as of 07/08/2019) Active Problems Problem Noted Date (spontaneous vaginal delivery) 05/26/2018 Research study patient 05/25/2018 Overview: Patient is in the HCTZ study IRB # [id number] Any questions please contact: Velasquez Barrett MD [phone] Armida Vasquez MD [phone] Wally Garcia MD [phone] Quick facts ? Patient randomized after delivery if conor renee met inclusion criteria a nd accepted ? Medication comes from IDS not pharmacy , IDS Phone Number Ext. [phone] or cell ? Patient can start meds as soon as they tolerate PO ? One tab per day of either placebo or H CTZ ? Medication stays with patient ? Medication will appear on AUG, Nurses need to maggie as given (No barcode) ? Medication needs to counted prior to d ischarge by research shipping team leader ? All follow ups need to be on POD or PP day # 14 or more ? Patient needs to be reminded to bring their left over medication and bottle back to their visit ? IDS needs to be notified at time of di scharge ? Please contact Dr. Barrett with any Questions Gestational hypertension 05/24/2018 34 weeks gestation of 05/24/2018 Severe pre-eclampsia 05/24/2018 Hyperemesis gravidarum 11/04/2017 Supervision of high risk , antepartum 018 Tobacco use during 10/21/2017 Overview: Reports quit Unspecified severe protein-calorie malnutrition 2017 documented as of this encounter (statuses as of 07/08/2019) Resolved Problems Problem Noted Date Resolved Date Protein-calorie malnutrition, mild 08/03/201710/21 documented as of this encounter (statuses as of 07/08/2019) Immunizations Name Administration Dates Next Due HPV9 05/26/2018 documented as of this encounter Social History Tobacco Use Types Packs/Day Years Used Date Former Smoker Cigarettes 10/22/2015 - 0 10/19/2017 Smokeless Tobacco: Never Used Comments: hx of smoking : 6 cigarretes per day Alcohol Use Drinks/Week oz/Week Comments No Sex Assigned at Date Recorded Not on file Job Start Date Occupation Industry Not on file Not on file Not on file Travel History Travel Start Travel End No recent travel history available. documented as of this encounter Last Filed Vital Signs Not on filedocumented in this encounter Plan of Treatment Health Maintenance Due Date Last Done Comments MENINGOCOCCAL B VACCINES (1 of 2 - 12/13/2007 Risk Bexsero 2-dose series) DTaP,Tdap,and Td Vaccines (1 - 2008 Tdap) HPV VACCINES (2 - Female 3-dose 06/23/2018 05/26/2018 series) CHLAMYDIA SCREENING 10/21/2018 10/21/2017 PAP SMEAR 2018 INFLUENZA VACCINE (#1) 2019 MENINGOCOCCAL VACCINE Aged Out No longer eligible based on patient's age to complete this topic PNEUMOCOCCAL 0-64 YEARS COMBINED Aged Out No longer eligible based on SERIES patient's age to complete this topic documented as of this encounter Procedures Procedure Name Priority Date/Time Associated Diagnosis Comme nts CONSENT/REFUSAL FOR Routine 07/08/2019 3:10 PM [employer] DIAGNOSIS AND TREATMENT documented in this encounter Results Not on filedocumented in this encounter Insurance Payer Benefit Plan Subscriber ID Effective Phone Address Typ e / Group Dates [facility] MEDICAID OF xxxxxxxxx 2017-Prese [phone] [facility] [phone] [place] [address] [facility] xxxxxxxxx 2018-Pres Medic aid HEALTHCARE COMM STAR ent PLAN - MANAGED MEDICAID documented as of this encounter Advance Directives Name Relationship Healthcare Agent Relationship Co mmunication Oneyda Jaffe Mother Primary healthcare agent Yasmani Pierce Father Primary healthcare agent
--- OUTSIDE RECORDS SUMMARY | 2019-10-29 22:31 | XMS REPORT ---
:1995 Author Organization [facility] t Address [address] [place] [address] Care Team Providers Name Role Phone Ultrasound Attending Clinician Unavailable Emeli Omalley Attending Clinician Faculty, [facility] Attending Clinician Unavailable Cony POOLE F Attending Clinician Problems This patient has no known problems. Allergies, Adverse Reactions, Alerts This patient has no known allergies or adverse reactions. Medications This patient has no known medications. Procedures This patient has no known procedures. Encounters Start End Encounter Admission Attending Care Care Encounter Source Date/Time Date/Time Type Type Clinicians Facility Department ID 2019-10-24 2019-10-24 Server Engineer Chau, SDCECILIA [id number] 12:56:30 13:56:30 Visit Bala [facility] ATTORNEY [id number] REGIONAL [id number] MATERNAL [id number] & CHILD 369 [facility] 2019-10-24 2019-10-24 Abstract GILBERT Draper [id number] 00:00:00 00:00:00 Jesus Sainz TAX ATTORNEY [id number] REGIONAL [id number] MATERNAL [id number] & CHILD 107 [facility] 2019-09-10 2019-09-10 Routine Baron [facility] [id number] 09:17:47 09:32:47 Roshunda R TAX ATTORNEY [id number] Visit REGIONAL [id number] MATERNAL [id number] & CHILD 107 [facility] 2019-08-27 2019-08-27 Routine Faculty, [facility] [id number] 09:29:11 10:42:59 Ang Rmchp TAX ATTORNEY [id number] Visit [facility] REGIONAL [id number] MATERNAL [id number] & CHILD 107 [facility] 2019-08-13 2019-08-13 Server Engineer Ultrasound, [facility] [id number] 15:08:00 15:38:00 Visit Ang-m TAX ATTORNEY [id number] REGIONAL [id number] MATERNAL [id number] & CHILD 369 [facility] 2019-08-13 2019-08-13 Abstract Baron [facility] [id number] 00:00:00 00:00:00 Roshunda R TAX ATTORNEY [id number] REGIONAL [id number] MATERNAL [id number] & CHILD 107 [facility] 2019-08-10 2019-08-10 Emergency Valdezjoy [facility] [id number] 18:38:08 20:30:00 Jerardo Giles [place] [id number] [place] [id number] [place] [id number] 2019-08-09 2019-08-09 Telephone Baron [facility] [id number] 00:00:00 00:00:00 Roshunda R TAX ATTORNEY [id number] REGIONAL [id number] MATERNAL [id number] & CHILD 107 [facility] Results This patient has no known results.
--- OUTSIDE RECORDS SUMMARY | 2019-10-29 22:32 | XMS REPORT | Summary of Care ---
:1995 Author Organization [facility] Address [address] [place] [address] Care Team Providers Name Role Phone Pcp, Does Not Have A Primary Care Provider Reason for Visit Reason Comments Numbness R sided Auth/Cert Status Reason Specialty Diagnoses / Referred By Referred To Procedures Contact Contact Emergency Medicine Adc Em ergency Dept [address] [place] [address] [place] [address] Fax: Encounter Details Date Type Department Care Team Description 07/08/2019 Emergency ADC-Emergency Yarima, Wakili S, Anorexia (Primary Dx); Department MD Headache syndrome; [address] [place] [address] [place] [address] Mild dehydration; [place] [address] OR1614 Positive blood test; [phone] [place] rela meli nausea, antepartum [address] Allergies Active Allergy Reactions Severity Noted Date Comments Flu Vac Qv Live 2017 (2-49yrs) Swelling 10/21/2017 documented as of this encounter (statuses as of 07/08/2019) Medications Medication Sig Dispensed Refills Start Date End Date Status ferrous sulfate Take 1 tablet 60 tablet 2 05/26/2018 Active 325 mg (65 mg by mouth 2 iron) tablet (two) times daily. docusate calcium Take 1 60 capsule 1 05/26/2018 A ctive 240 mg capsule capsule by mouth once daily as needed for Constipation. ibuprofen 600 mg Take 1 tablet 60 tablet 1 05/26/2018 Active tablet by mouth every 6 (six) hours as needed for Pain (scale 1-3) or Pain (scale 4-6) (Pain). Take with food or milk. vitamin Take 1 tablet 100 tablet 3 05/26/2018 Active w/FA tablet by mouth daily. proMETHazine 25 Take 0.5 12 tablet 0 07/08/2019 Act enrique mg tablets by tabletIndications mouth every 6 : (six) hours related nausea, as needed for antepartum Nausea and Vomiting (N/V). butalbital-acetam Take 1 tablet 20 tablet 0 07/08/2019 02 Discontinued inophen-caff by mouth 0 (Altern ate 50-325-40 mg every 6 (six) the rapy) tabletIndications hours as : Headache needed syndrome (Headache). ondansetron Take 1 tablet 12 tablet 0 07/08/2019 Dis continued (ZOFRAN) 4 mg by mouth 0 (Alter yony tabletIndications every 8 th erapy) : Headache (eight) hours syndrome as needed for Nausea and Vomiting (N/V). documented as of this encounter (statuses as of 07/08/2019) Active Problems Problem Noted Date (spontaneous vaginal delivery) 05/26/2018 Research study patient 05/25/2018 Overview: Patient is in the HCTZ study IRB # [id number] Any questions please contact: Velasquez Barrett MD [phone] Armida Vasquez MD [phone] Wally Garcia MD [phone] Quick facts ? Patient randomized after delivery if t shavony met inclusion criteria a nd accepted ? Medication comes from IDS not pharmacy , IDS Phone Number Ext. [phone] or cell ? Patient can start meds as soon as they tolerate PO ? One tab per day of either placebo or H CTZ ? Medication stays with patient ? Medication will appear on MAR, Nurses need to maggie as given (No barcode) ? 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 All follow ups need to be [...] of this encounter Last Filed Vital Signs Vital Sign Reading Time Taken Comments Blood Pressure 141/83 07/08/2019 6:12 [address] [employer] Pulse 78 07/08/2019 6:12 [address] [employer] [address] [employer] Temperature 36.3 C (97.4 F) 07/08/2019 3:49 PM [facility] [facility] [address] [employer] Respiratory Rate 18 07/08/2019 6:12 PM [facility] [address] [employer] Oxygen Saturation 99% 07/08/2019 6:12 PM [address] [address] [employer] Inhaled Oxygen Concentration - - Weight 34.5 kg (76 lb) 07/08/2019 3:18 PM [facility] [address] [employer] Height 149.9 cm (4' 11") 07/08/2019 3:18 PM [facility] [address] [employer] Body Mass Index 15.35 07/08/2019 3:18 PM [facility] [employer] [employer] [address] [employer] documented in this encounter Discharge Instructions Shadi Fofana MD - 07/08/2019 DIAGNOSIS Diagnoses that have been ruled out: None Diagnoses that are still under consideration: None Final diagnoses: Anorexia Headache syndrome Mild dehydration Positive blood test related nausea, antepartum NO LIFE-THREATENING FINDINGS ON TODAY'S EXAM. PROCEDURES IN THE ER TODAY: Orders Placed This Encounter Procedures CBC WITH DIFF COMP. METABOLIC PANEL (92051) URINALYSIS POCT TEST MAGNESIUM CBC WITH DIFFERENTIAL TEST, SERUM MEDICATIONS ADMINISTERED IN THE ER TODAY AND DISCHARGE MEDICATIONS: Orders Placed This Encounter Medications ondansetron (ZOFRAN (PF)) injection 4 mg DISCONTD: rzamozkind-prcjdhrwtdfhc-sahk 50-325-40 mg tablet DISCONTD: ondansetron (ZOFRAN) 4 mg tablet proMETHazine 25 mg tablet FOLLOW-UP RECOMMENDATIONS: RECOMMEND FOLLOW-UP WITH A PRIMARY CARE PROVIDER OR OB-DRESS CAP MAKER SPECIALIST IN 2-5 DAYS, ESPECIALLY IF NO IMPROVEMENT IN SYMPTOMS. MAY FOLLOW-UP WITH A PROVIDER OF YOUR CHOICE, SUCH : 1. A PHYSICIAN OF YOUR CHOICE 2. [facility], . LOCATIONS [facility] 3. [facility], [address], [place]; [phone] OR, IF YOU WISH TO FOLLOW-UP WITHIN THE [facility], MAY TRY THESE OPTIONS (CLINIC APPOINTMENTS AVAILABLE ON [id number] BASIS): 1. SCHEDULE AN APPOINTMENT ONLINE AT WWW.[facility] 2. OR CALL THE [facility] AT OR 3. OR CALL YOUR [facility] PHYSICIAN'S OFFICE DIRECTLY IF YOU ARE ALREADY AN ESTABLISHED [facility] PATIENT. RETURN TO ER FOR WORSENING OF SYMPTOMS TYLENOL FOR HEADACHE NEEDED documented in this encounter Plan of Treatment Health [...] encounter Procedures Procedure Name Priority Date/Time Associated Comments Diagnosis TEST, SERUM STAT 07/08/2019 5:17 Anorexia Re sults for this PM [employer] [facility] procedure are i n the results section. CBC WITH DIFFERENTIAL STAT 07/08/2019 3:56 Anorexia Re sults for this PM [employer] [address] [employer] procedure are i n the results section. CBC WITH DIFFERENTIAL STAT 07/08/2019 3:56 Anorexia Re sults for this PM [employer] [employer] [address] [employer] procedure are i n the results section. COMP. METABOLIC PANEL STAT 07/08/2019 3:56 Anorexia Re sults for this ([id number]) PM [employer] [employer] [address] [employer] procedure are i n the results section. MAGNESIUM STAT 07/08/2019 3:56 Anorexia Results for this PM [employer] [employer] [employer] [address] [employer] procedure are i n the results section. URINALYSIS STAT 07/08/2019 3:51 Anorexia Results for this PM [employer] [employer] [employer] [address] [employer] procedure are i n the results section. POCT TEST MITCH 07/08/2019 3:48 Anorexia Resu lts for this PM [employer] [employer] [employer] [address] [employer] procedure are i n the results section. NOTICE OF PRIVACY Routine 07/08/2019 3:10 PRACTICES PM [employer] [employer] [facility] [address] [employer] documented in this encounter Results TEST, SERUM (07/08/2019 5:17 PM [facility] FORMS) Pathologist Sig [facility] PREG SERUM Positive [facility] Specimen Blood - VENOUS Narrative Performed At Positive greater than or equal to 10 IU/L hCG. [facility] Performing Organization Address City/State/Zipcode Phone Number [facility] CLIA: [id number], [address] [place], [place] [address] CBC WITH DIFFERENTIAL (07/08/2019 3:56 PM [facility] FORMS) Pathologist [facility] WBC 13.24 (H) 4.30 - 11.10 [facility] 10*3/L [facility] RBC 5.00 3.93 - 5.25 [facility] 10*6/L [facility] HGB 13.6 11.6 - 15.0 [facility] g/dL [facility] HCT 41.5 35.7 - 45.2 % [facility] MCV 83.0 80.6 - 95.5 fL [facility] MCH 27.2 25.9 - 32.8 pg [facility] MCHC 32.8 31.6 - 35.1 [facility] g/dL [facility] RDW-SD 43.2 39.0 - 49.9 fL [facility] RDW-CV 14.4 12.0 - 15.5 % [facility] PLT 259 166 - 358 [facility] 10*3/L [facility] MPV 11.4 9.5 - 12.9 fL [facility] NRBC/100 WBC 0.0 0.0 - 10.0 /100 [facility] WBCs [facility] NRBC x10^3 <0.01 10*3/L [facility] GRAN MAT (NEUT) % 81.1 % [facility] IMM GRAN % 0.50 % [facility] LYMPH % 15.5 % [facility] MONO % 2.5 % [facility] EOS % 0.1 % [facility] BASO % 0.3 % [facility] GRAN MAT x10^3(ANC) 10.74 (H) 1.88 - 7.09 [facility] 10*3/uL [facility] IMM GRAN x10^3 0.07 (H) 0.00 - 0.06 [facility] 10*3/uL [facility] LYMPH x10^3 2.05 1.32 - 3.29 [facility] 10*3/uL [facility] MONO x10^3 0.33 0.33 - 0.92 [facility] 10*3/uL [facility] EOS x10^3 <0.03 (L) 0.03 - 0.39 [facility] 10*3/uL [facility] BASO x10^3 0.04 0.01 - 0.07 [facility] 10*3/uL [facility] Specimen Blood - VENOUS Performing Organization Address City/[facility]/Zipcode Phone Number [facility] CLIA: [id number], [address] [place] [address] MAGNESIUM (07/08/2019 3:56 PM [address] FORMS) Pathologist Sig nature MAGNESIUM 1.9 1.7 - 2.4 mg/dL [facility] Specimen Blood - VENOUS Performing Organization Address City/[facility]/Zipcode Phone Number [facility] CLIA: [id number], [address] [place] [address] COMP. METABOLIC PANEL ([id number]) (07/08/2019 3:56 PM [employer]M [employer] [address] FORMS) Pathologist Sig nature NA 140 135 - 145 [facility] mmol/L [facility] K 3.8 3.5 - 5.0 [facility] mmol/L [facility] CL 107 98 - 108 mmol/L [facility] CO2 TOTAL 21 (L) 23 - 31 mmol/L [facility] AGAP 12 2 - 16 [facility] BUN 8 7 - 23 mg/dL [facility] GLUCOSE 101 70 - 110 mg/dL [facility] CREATININE 0.63 0.50 - 1.04 [facility] mg/dL [facility] TOTAL BILI 0.5 0.1 - 1.1 mg/dL [facility] CALCIUM 9.8 8.6 - 10.6 [facility] mg/dL [facility] T PROTEIN 8.5 (H) 6.3 - 8.2 g/dL [facility] ALBUMIN 5.1 (H) 3.5 - 5.0 g/dL [facility] ALK PHOS 63 34 - 122 U/L [facility] ALTv 14 5 - 35 U/L [facility] AST(SGOT) 18 13 - 40 U/L [facility] eGFR Calculation 119.3 mL/min/1.73m2 [facility] ([facility] [place]ian) eGFR Calculation 144.6 mL/min/1.73m2 [facility] () [facility] Specimen Blood - VENOUS Narrative Performed At Association of Glomerular Filtration Rate (GFR) [facility] and Staging of Kidney Disease* + + +- + | GFR (mL/min/1.73 m2) | With Kidney Damage | Without Kidney Damage + + +- + | >90 | Stage one | Normal + + +- + | 60-89 | Stage two | Decreased GFR + + +- + | 30-59 | Stage three | Stage three + + +- + | 15-29 | Stage four | Stage four + + +- + | <15 (or dialysis) | Stage five | Stage five + + +- + *Each stage assumes the associated GFR level has been in effect for at least three months. Stages 1 to 5, with or without kidney disease, indicate chronic kidney disease. Notes: Determination of stages one and two (with eGFR >59mL/min/1.73 m2) requires estimation of kidney damage for at least three months as defined by structural or functional abnormalities of the kidney, manifested by either: Pathological abnormalities or Markers of kidney damage (including abnormalities in the composition of the blood or urine or abnormalities in imaging tests). Performing Organization Address City/State/Zipcode Phone Number [facility] CLIA: [id number], [address] [place] [address] URINALYSIS (07/08/2019 3:51 PM [address]M [address] FORMS) Pathologist Sig nature APPEARANCE Hazy (A) Clear [facility] COLOR Yellow Yellow [facility] PH 6.0 4.8 - 8.0 [facility] SP GRAVITY 1.018 1.003 - 1.030 [facility] GLU U QUAL Normal Normal [facility] BLOOD Negative Negative [facility] KETONES 20 mg/dL (A) Negative [facility] PROTEIN 100 mg/dL (A) Negative [facility] UROBILIN Normal Normal [facility] BILIRUBIN Negative Negative [facility] NITRITE Negative Negative [facility] LEUK JULIOCESAR Negative Negative [facility] RBC/HPF 5 (H) 0 - 3 HPF [facility] WBC/HPF 2 0 - 5 HPF [facility] BACTERIA Few (A) Negative [facility] MUCOUS Moderate (A) Negative LPF [facility] SQ EPITH 21 HPF [facility] HYAL CAST 6 (H) <=2 LPF [facility] Specimen Urine - URINE, CLEAN CATCH Performing Organization Address City/State[facility] Phone Number [facility] CLIA: [id number], [address] [place] [address] POCT TEST (07/08/2019 3:48 PM FORM SETTER [address] FORMS) Pathologist Sig nature POCT PREG negative On board controls acceptable yes with C Line POCT PREG LOT # [id number] POCT PREG TEST DATE 01-10-21 Specimen Urine - URINE, CLEAN CATCH documented in this encounter Visit Diagnoses Diagnosis Anorexia - Primary Headache syndrome Mild dehydration Dehydration Positive blood test related nausea, antepartum Mild hyperemesis gravidarum, antepartum documented in this encounter Administered Medications Medication Order MAR Action Action Date Dose Rate Site ondansetron (ZOFRAN (PF)) injection Given 07/08/2019 3:58 PM CS T 4 mg 4 mg 4 mg, Slow IV Push, ONCE, 1 dose, 07/08/19 at 1645, MITCH documented in this encounter Insurance Payer Benefit Plan / Subscriber ID Effective Dates Phone Addre ss Type Group [facility] xxxxxxxxx 2018-Pres Medicaid COMM PLAN - t MANAGED MEDICAID (Home) [place] [address] documented as of this encounter Advance Directives Name Relationship Healthcare Agent Relationship Co mmunication Yasmani Pierce Father Primary healthcare agent
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
--- OUTSIDE RECORDS SUMMARY | 2019-10-29 22:33 | XMS REPORT | Summary of Care ---
:1995 Author Organization [facility] Address [address] [place] [address] Care Team Providers Name Role Phone Emeli Draper Primary Care Provider Reason for Visit Reason Comments Orders CBC Encounter Details Date Type Department Care Team Description 08/09/2019 Telephone [facility] RMP- A Jesus Calvert FNP Orders (CBC) [address] [place] [address] [place] [address] [address] [place] [address] [phone] Allergies Active Allergy Reactions Severity Noted Date Comments Flu Vac Qv Live 2017 (2-49yrs) Swelling 10/21/2017 documented as of this encounter (statuses as of 08/10/2019) Medications Medication Sig Dispensed Refills Start Date End Date Status ibuprofen 600 mg tablet Take 1 tablet by 60 tablet 1 8 Active mouth every 6 (six) hours as needed for Pain (scale 1-3) or Pain (scale 4-6) (Pain). Take with food or milk. vit Take 1 Packet by 30 Each 6 08/08/2019 Active 88-imfy-amckc-dha mouth daily. (SELECT-OB + DHA) 29 mg iron-1 mg -250 mg combo packIndications: Supervision of high risk , antepartum documented as of this encounter (statuses as of 08/10/2019) Active Problems Problem Noted Date History of gestational hypertension 08/08/2019 History of delivery 08/08/2019 Multiparity 08/08/2019 Tobacco abuse 08/08/2019 Underweight 08/08/2019 Elevated blood pressure reading without diagnosis of h ypertension 08/08/2019 (spontaneous vaginal delivery) 05/26/2018 Research study patient 05/25/2018 Overview: Patient is in the HCTZ study IRB # [id number] Any questions please contact: Velasquez Barrett MD [phone] Armida Vasquez MD [phone] Wally Garcia MD [phone] Quick facts ? Patient randomized after delivery if conor renee met inclusion criteria a nd accepted ? Medication comes from IDS not pharmacy , IDS Phone Number Ext. [phone] or cell ? Patient can start meds as soon as they tolerate PO ? One tab per day of either placebo or H CTZ ? Medication stays with patient ? Medication will appear on AUG, Nurses need to maggie as given (No barcode) ? Medication needs to counted prior to d ischarge by research marine steam fitter helper ? All follow ups need to be [...] as of this encounter (statuses as of 08/10/2019) Resolved Problems Problem Noted Date Resolved Date Protein-calorie malnutrition, mild 08/03/201710/21 documented as of this encounter (statuses as of 08/10/2019) Immunizations Name Administration Dates Next Due HPV9 05/26/2018 documented as of this encounter Social History Tobacco Use Types Packs/Day Years Used Date Current Every Day Smoker Cigarettes Sta rted: 10/22/2015 Smokeless Tobacco: Never Used Comments: hx of [...] filedocumented in this encounter Plan of Treatment Date Type Specialty Care Team Description 08/13/2019 Scoop Operator Visit Maternal Medicine 08/27/2019 Routine Visit OB Satellites Faculty, Ang Rmp Mf Health Maintenance Due Date Last Done Comments [...] or series) ) CHLAMYDIA SCREENING 08/08/2020 08/08/2019, 08/08/2019, 10/21/2017 DTaP,Tdap,and Td Vaccines (1 08/08/2020 Pos tponed from - Tdap) 2008 ([place]) INFLUENZA VACCINE Discontinued MENINGOCOCCAL VACCINE Aged Out No longer eligible based on patient's age to complete this to pic PNEUMOCOCCAL 0-64 YEARS Discontinued COMBINED SERIES documented as of this encounter Results Not on filedocumented in this encounter Insurance Payer Benefit Plan / Subscriber ID Effective Dates Phone Addre ss Type Group [facility] STAR xxxxxxxxx 2018-[facility] Medicaid COMM PLAN - t MANAGED MEDICAID documented as of this encounter Advance Directives Name Relationship Healthcare Agent Relationship Co mmunication Yasmani Pierce Father Primary healthcare agent
--- OUTSIDE RECORDS SUMMARY | 2019-10-29 22:33 | XMS REPORT | Summary of Care ---
:1997 Author Organization [facility] Address [address] [place] [address] Care Team Providers Name Role Phone Emeli Draper Primary Care Provider Reason for Visit Reason Comments Orders CBC Encounter Details Date Type Department Care Team Description 08/09/[address] [facility] RMP- A Jesus Calvert FNP Orders (CBC) [address] [place] [address] [place] [address] 9[address] [place] [address] [phone] Allergies Active Allergy Reactions Severity Noted Date [...] Packet by 30 Each 6 08/08/2019 Active 04-deku-flcjf-dha mouth daily. (SELECT-OB + DHA) 29 mg [...] Any questions please contact: Velasquez Barrett MD [phone] Armida Vasquez MD [phone] Wally Garcia MD [phone] Quick facts ? Patient randomized after delivery if conor renee met inclusion criteria a nd accepted ? Medication comes from IDS not pharmacy , IDS Phone Number Ext. [phone] or cell ? Patient can start meds as soon as they tolerate PO ? One tab per day of either placebo or H CTZ ? Medication stays with patient ? Medication will appear on AUG, Nurses need to maggie as given (No barcode) ? Medication needs to counted prior to d ischarge by research steam and gas turbines assembler ? All follow ups need to be [...] Date Type Specialty Care Team Description 08/13/2019 Claims Adjuster Crop Visit Maternal Medicine 08/27/2019 Routine Visit OB [...] Effective Dates Phone Addre ss Type Group [facility] STAR xxxxxxxxx 2018-[facility] Medicaid COMM PLAN - t MANAGED MEDICAID documented as of this encounter Advance Directives Name Relationship Healthcare Agent Relationship Co mmunication Yasmani Pierce Father Primary healthcare agent
--- OUTSIDE RECORDS SUMMARY | 2019-10-29 22:33 | XMS REPORT | Summary of Care ---
:[address] [facility] Address [address] [place] [address] Care Team Providers Name Role Phone Emeli Draper Primary Care Provider Reason for Visit Reason Comments Orders CBC Encounter Details Date Type Department Care Team Description 08/09/2019 Telephone [facility] RMP- A Jesus Calvert FNP Orders (CBC) [address] [place] [address] [place] [address] 9[address] [place] [address] [phone] Allergies Active Allergy Reactions Severity Noted Date [...] Packet by 30 Each 6 08/08/2019 Active 93-xbps-jwmlk-dha mouth daily. (SELECT-OB + DHA) 29 mg [...] Any questions please contact: Velasquez Barrett MD [phone] Armida Vasquez MD [phone] Wally Garcia MD [phone] Quick facts ? Patient randomized after delivery if conor renee met inclusion criteria a nd accepted ? Medication comes from IDS not pharmacy , IDS Phone Number Ext. [phone] or cell ? Patient can start meds as soon as they tolerate PO ? One tab per day of either placebo or H CTZ ? Medication stays with patient ? Medication will appear on AUG, Nurses need to maggie as given (No barcode) ? Medication needs to counted prior to d ischarge by research guest service team leader ? All follow ups need [...] Date Type Specialty Care Team Description 08/13/2019 Clamp Operator Visit Maternal Medicine 08/27/2019 Routine Visit [...] Effective Dates Phone Addre ss Type Group [facility] STAR xxxxxxxxx 2018-[facility] Medicaid COMM PLAN - t MANAGED MEDICAID documented as of this encounter Advance Directives Name Relationship Healthcare Agent Relationship Co mmunication Yasmani Pierce Father Primary healthcare agent
--- OUTSIDE RECORDS SUMMARY | 2019-10-29 22:33 | XMS REPORT | Summary of Care ---
:1997 Author Organization [facility] Address [address] [place] [address] Care Team Providers Name Role Phone Emeli Draper Primary Care Provider Reason for Referral (Routine) Status Reason Specialty Diagnoses / Referred By Referred To Procedures Contact Contact New Request Maternal Diagnoses Elevated blood pressure reading without diagnosis of hypertension Eduarda Draper Procedures CONSULT/REFERRAL MATERNAL MEDICINE FACULTY/FELLOW Preferred location: [facility] [place] [address] [place] [address] (Routine) Status Reason Specialty Diagnoses / Referred By Referred To Procedures Contact Contact New Request Maternal Diagnoses Supervision of high risk , antepartum Jesus Draper Medicine Procedures CONSULT MATERNAL MEDICINE ULTRASOUND Preferred Location: [facility] [place] [address] [place] [address] Reason for Visit Reason Comments New OB Visit Encounter Details Date Type Department Care Team Description 08/08/2019 Initial [facility] RMP- Jesus Draper upervision of high risk , antepartum (Primary Dx); Visit [facility] [place] History of gestational hypertension; [address] [place] [address] History of delivery; [place] Multiparity; [address] [place] Elevated blood pressure read ing without diagnosis of hypertension; [phone] [address] Tobacco abuse; [phone] Underweight Allergies Active Allergy Reactions Severity Noted Date Comments Flu Vac Qv Live 2017 (2-49yrs) Swelling 10/21/2017 documented as of this encounter (statuses as of 08/09/2019) Medications Medication Sig Dispensed Refills Start Date End Date Status ibuprofen 600 mg Take 1 tablet 60 tablet 1 05/26/2018 Active tablet by mouth every 6 (six) hours as needed for Pain (scale 1-3) or Pain (scale 4-6) (Pain). Take with food or milk. vit Take 1 Packet 30 Each 6 08/08/2019 Ac tive 32-mpto-xqipc-dha by mouth (SELECT-OB + DHA) daily. 29 [...] as of this encounter (statuses as of 08/09/2019) Active Problems Problem Noted Date History of gestational hypertension 08/08/2019 History of delivery 08/08/2019 Multiparity 08/08/2019 Tobacco abuse 08/08/2019 Underweight 08/08/2019 Elevated blood pressure reading without diagnosis of h ypertension 08/08/2019 (spontaneous vaginal delivery) 05/26/2018 Research study patient 05/25/2018 Overview: Patient is in the [facility] study IRB # [id number] Any questions please contact: Velasquez Barrett MD [phone] Armida Vasquez MD [phone] Wally Garcia MD [phone] Quick facts ? Patient randomized after delivery if t víctor met inclusion criteria a nd accepted ? Medication comes from IDS not pharmacy , IDS Phone Number [phone]. [phone] or cell ? Patient can start meds as soon as they tolerate PO ? One tab per day of either placebo or H CTZ ? Medication stays with patient ? Medication will appear on AUG, Nurses need to maggie as given (No barcode) ? Medication needs to counted prior to d ischarge by research meat team lead ? All follow ups need to be [...] as of this encounter (statuses as of 08/09/2019) Resolved Problems Problem Noted Date Resolved Date Protein-calorie malnutrition, mild 08/03/201710/21 documented as of this encounter (statuses as of 08/09/2019) Immunizations Name Administration Dates Next Due HPV9 [...] Comments Blood Pressure 148/93 08/08/2019 9:44 AM PRODUCT SUPPORT REP Pulse 82 08/08/2019 9:43 AM PRODUCT SUPPORT REP Temperature 36.8 C (98.3 F) 08/08/2019 9:43 AM PRODUCT SUPPORT REP Respiratory Rate 16 08/08/2019 9:43 AM PRODUCT SUPPORT REP Oxygen Saturation - - Inhaled Oxygen Concentration - - Weight 33.3 kg (73 lb 5 oz) 08/08/2019 9:43 AM PRODUCT SUPPORT REP Height 149.9 cm (4' 11") 08/08/2019 9:43 AM PRODUCT SUPPORT REP Body Mass Index 14.81 08/08/2019 9:43 AM PRODUCT SUPPORT REP documented in this encounter Progress Notes Jesus [...] file Gets together: Not on file Attends orthodoxy service: Not on file Active member of [...] No Hemophilia or other Blood Disorders: No [place] Chorea: No Maternal Metabolic Disorder--specify (eg. Type [...] list which includes the following prescription(s): vit 17-zltn-mgpwg-dha and ibuprofen. Review of Systems Constitutional: Negative [...] age. Normal hair distribution. No labial lesion. Steel Plate Printer present for the exam: Floresita Roca RN [...] Abdomen: Normal Extremities: Normal Pelvic Exam: Vagina: Steel Plate Printer present for the exam: Floresita Roca RN [...] ASSAY, CONSULT MATERNAL MEDICINE ULTRASOUND Preferred Location: [place], vit 23-zffs-izndt-dha (SELECT-OB + DHA) 29 mg iron-1 mg [...] Plan: CONSULT/REFERRAL MATERNAL MEDICINE FACULTY/FELLOW Preferred location: [place] Tobacco abuse Comment: current smoker Plan: smoking [...] home. DANA HUNTER RN 08/08/2019 10:08 AM UCT SUPPORT REP documented in this encounter Plan of Treatment Date Type Specialty Care Team Description 08/27/2019 Routine Visit OB Satellites Faculty, Marcelo [facility] p m Name Type Priority Associated Diagnoses Date/Ti me RUBELLA SCREEN (PROSPER) LAB Routine Supervision of hig h risk 08/08/2019 11:33 AM IGG , antepartum PRODUCT SUPPORT REP URINE CULTURE LAB Routine Supervision of high risk 11:33 AM , antepartum PRODUCT SUPPORT REP VZV ANTIBODY SCREEN LAB Routine Supervision of high r isk 08/08/2019 11:33 AM , antepartum PRODUCT SUPPORT REP GC & CHLAMYDIA AMPLIFIED LAB Routine Supervision of h igh risk 08/08/2019 11:33 AM ASSAY , antepartum PRODUCT SUPPORT REP TRICHOMONAS AMPLIFIED LAB Routine Supervision of high risk 08/08/2019 11:33 AM ASSAY , antepartum PRODUCT SUPPORT REP LAB ONLY PAP SMEAR-LIQUID LAB Routine Supervision of high risk 08/08/2019 11:33 AM BASED , antepartum PRODUCT SUPPORT REP Name Type Priority Associated Diagnoses Order S chedule POCT URINALYSIS W LAB Routine Supervision of high ris k 20 Occurrences starting SPECIFIC GRAVITY , antepartum until 06/03/2020, 1 c ompleted POCT URINALYSIS W LAB Routine Supervision of high ris k 20 Occurrences starting SPECIFIC GRAVITY , antepartum until 06/03/2020 RUBELLA SCREEN (PROSPER) LAB Routine Supervision of hig h risk Expected: 08/08/2019, IGG , antepartum s: 08/08/2020 URINE CULTURE LAB Routine Supervision of high risk Ex pected: 08/08/2019, , antepartum s: 08/08/2020 VZV ANTIBODY SCREEN LAB Routine Supervision of high r isk Expected: 08/08/2019, , antepartum s: 08/08/2020 GC & CHLAMYDIA AMPLIFIED LAB Routine Supervision of h igh risk Expected: 08/08/2019, ASSAY , antepartum s: 08/08/2020 TRICHOMONAS AMPLIFIED LAB Routine Supervision of high risk Expected: 08/08/2019, ASSAY , antepartum s: 08/08/2020 LAB ONLY PAP LAB Routine Supervision of high risk Exp ected: 08/08/2019, SMEAR-LIQUID BASED , antepartum Expires: 08/08/2020 Health Maintenance Due Date Last Done [...] Name Priority Date/Time Associated Diagnosis Comme nts GALV ONLY - SYPHILIS Routine 08/08/2019 11:33 Supervision of h igh Results for this IGG/IGM AM PRODUCT SUPPORT REP risk , procedure ar e in antepartum the results section. PAP SMEAR-LIQUID Routine 08/08/2019 11:33 Supervision of high BASED-CP AM PRODUCT SUPPORT REP risk , antepartum HIV 1/2 AG-AB WITH Routine 08/08/2019 11:33 Supervision of hig h Results for this REFLEX AM PRODUCT SUPPORT REP risk , procedure ar e in antepartum the results section. HEPATITIS B SURFACE Routine 08/08/2019 11:33 Supervision of hi gh Results for this ANTIGEN AM PRODUCT SUPPORT REP risk , procedure ar e in antepartum the results section. HB ABO GROUPING Routine 08/08/2019 10:42 Supervision of high R esults for this AM PRODUCT SUPPORT REP risk , procedure ar e in antepartum the results section. POCT TEST Routine 08/08/2019 9:45 Supervision of hi gh Results for this AM PRODUCT SUPPORT REP risk , procedure ar e in antepartum the results section. POCT URINALYSIS Routine 08/08/2019 9:45 Supervision of high R esults for this AM PRODUCT SUPPORT REP risk , procedure ar e in antepartum the results section. documented in this encounter Results PAP Smear-Liquid Based (08/08/2019 11:33 AM PRODUCT SUPPORT REP) Specimen Swab - CERVIX Performing Organization Address City/[facility]/Zipcode Phone Number [facility] CLIA: [id number], [address] [place] [address] [address] [facility] GALV ONLY - SYPHILIS IGG/IGM (08/08/2019 11:33 AM PRODUCT SUPPORT REP) Pathologist Sig nature Syphilis IgG/IgM Non-reactive Non-reactive [facility] Specimen Blood - ARM, LEFT Narrative Performed At [facility] Non-reactive - No serologic evidence of T. pallidum infection. Cannot exclude incubating or early syphilis . Submit a second specimen in 2-4 weeks if syphilis is clinically suspected. Equivocal - Further testing to follow. Reactive - Further testing to follow. Performing Organization Address [facility] Phone Number [facility] CLIA: [id number], [address] [place] [address] [address] [facility] HIV 1/2 AG-AB WITH REFLEX (08/08/2019 11:33 AM PRODUCT SUPPORT REP) Pathologist Sig nature HIV 1/2 Ag-Ab with Negative Negative [facility] Reflex SERVICES HIV Semi-quantitative 0.07 [facility] Specimen Blood - ARM, LEFT Narrative Performed At Non-reactive for HIV-1 antigen and HIV-1/HIV-2 antibod ies. [facility] No laboratory evidence of HIV infection. Repeat in 2-4 weeks if acute HIV infection is suspected. Performing Organization Address [facility] Phone Number [facility] CLIA: [id number], [address] [place] [address] [address] [facility] HEPATITIS B SURFACE ANTIGEN (08/08/2019 11:33 AM PRODUCT SUPPORT REP) Pathologist Sig nature HBsAg Negative Negative [facility] HBsAg 0.05 [facility] Semi-Quantitative SERVICES Specimen Blood - ARM, LEFT Performing Organization Address [facility]/Zipcode Phone Number [facility] CLIA: [id number], [address] [place] [address] 555 [facility] WORKUP, BLOOD BANK (08/08/2019 10:42 AM PRODUCT SUPPORT REP) Pathologist Sig nature ABO & RH B POSITIVE LAB Comment: Performed at [facility] Laboratory Services - [facility] Blood Bank [address] [place] [address] Toll Free: [phone] CLIA No. [id number] IAT Negative LAB Comment: Performed at [facility] Laboratory Services - [facility] Blood Bank [address] [place] [address] Toll Free: [phone] CLIA No. [id number] Specimen Blood - VENOUS Performing Organization Address City/State/Zipcode Phone Number BLD LAB POCT TEST (08/08/2019 9:45 AM PRODUCT SUPPORT REP) Pathologist Sig nature POCT PREG Positive On board controls acceptable Yes with C Line POCT PREG LOT # POCT PREG TEST DATE Specimen Urine - URINE, CLEAN CATCH POCT URINALYSIS W SPECIFIC GRAVITY (08/08/2019 9:45 AM PRODUCT SUPPORT REP) Pathologist Sig nature POCT U SP GRAV [...] Effective Dates Phone Addre ss Type Group [facility] STAR xxxxxxxxx 2018-[place] Medicaid COMM PLAN - t MANAGED MEDICAID documented as of this encounter Advance Directives Name Relationship Healthcare Agent Relationship Co mmunication Yasmani Pierce Father Primary healthcare agent
--- OUTSIDE RECORDS SUMMARY | 2019-10-29 22:34 | XMS REPORT | Summary of Care ---
:1997 Author Organization [facility] Address [address] [place] [address] Care Team Providers Name Role Phone Emeli Draper Primary Care Provider Reason for Visit Reason Comments ULTRASOUND (Routine) Status Reason Specialty Diagnoses / Referred By Referred To Procedures Contact Contact Closed Maternal Diagnoses Supervision of high risk , antepartum Jesus Draper Medicine Procedures CONSULT MATERNAL MEDICINE ULTRASOUND Preferred Location: [facility] [place] [address] [place] [address] Encounter Details Date Type Department Care Team Description 08/13/2019 Furniture Design[facility] Kraus U terine size-date Ultrasound- Yuly BELLE discrepancy in first [address] [facility] [address] VD trimester [place], [place] [id number] [place], [place] [phone] [id number] Allergies Active Allergy Reactions Severity Noted Date Comments Flu Vac Qv Live 2017 (2-49yrs) Swelling 10/21/2017 documented as of this encounter (statuses as of 08/13/2019) Medications Medication Sig Dispensed Refills Start Date End Date Status ibuprofen 600 mg tablet Take 1 tablet by 60 tablet 1 8 Active mouth every 6 (six) hours as needed for Pain (scale 1-3) or Pain (scale 4-6) (Pain). Take with food or milk. vit Take 1 Packet by 30 Each 6 08/08/2019 Active 04-dkuw-msecp-dha mouth daily. (SELECT-OB + DHA) 29 mg iron-1 mg -250 mg combo packIndications: Supervision of high risk , antepartum documented as of this encounter (statuses as of 08/13/2019) Active Problems Problem Noted Date History of gestational hypertension 08/08/2019 History of delivery 08/08/2019 Multiparity 08/08/2019 Tobacco abuse 08/08/2019 Underweight 08/08/2019 Elevated blood pressure reading without diagnosis of h ypertension 08/08/2019 (spontaneous vaginal delivery) 05/26/2018 Research study patient 05/25/2018 Overview: Patient is in the HCTZ study IRB # [id number] Any questions please contact: Velasquez Barrett MD [phone] Armida Vasquez MD [phone] Wally Garcia MD [phone] Quick facts ? Patient randomized after delivery if conor renee met inclusion criteria a nd accepted ? Medication comes from IDS not pharmacy , IDS Phone Number Ext. [phone] or cell ? Patient can start meds as soon as they tolerate PO ? One tab per day of either placebo or H CTZ ? Medication stays with patient ? Medication will appear on AUG, Nurses need to maggie as given (No barcode) ? Medication needs to counted prior to d ischarge by research cleaning team member ? All follow ups need to be [...] as of this encounter (statuses as of 08/13/2019) Resolved Problems Problem Noted Date Resolved Date Protein-calorie malnutrition, mild 08/03/201710/21 documented as of this encounter (statuses as of 08/13/2019) Immunizations Name Administration Dates Next Due HPV9 [...] Visit OB Satellites Faculty, Marcelo [facility] Health Maintenance Due Date Last Done Comments [...] filedocumented in this encounter Visit Diagnoses Diagnosis Uterine size-date discrepancy in first t rimester Uterine size date discrepancy, antepartu m condition or complication documented in this encounter Insurance Payer Benefit Plan / Subscriber ID Effective Dates Phone Addre ss Type Group [facility] xxxxxxxxx 2018-[place] Medicaid COMM PLAN - t MANAGED MEDICAID ([place]most) [place] [address] documented as of this encounter Advance Directives Name Relationship Healthcare Agent Relationship Co mmunication Yasmani Pierce Father Primary healthcare agent
--- OUTSIDE RECORDS SUMMARY | 2019-10-29 22:34 | XMS REPORT | Summary of Care ---
:1995 Author Organization [facility] - [facility] Address [address] [place] [address] Care Team Providers Name Role Phone Emeli Draper SLAB OFF MILL TENDER Primary Care Provider Reason for Visit Reason Comments Sore Throat Encounter Details Date Type Department Care Team Description 08/10/2019 Emergency ADC-Emergency Jerardo Donnelly Sore thro at (Primary Department F, SLAB OFF MILL TENDER Dx) [address] [place] [address] [address] [place] [address] [address] [place] [address] Allergies Active Allergy Reactions Severity Noted Date [...] Packet by 30 Each 6 08/08/2019 Active 96-ssbw-rglmu-dha mouth daily. (SELECT-OB + DHA) 29 mg [...] Any questions please contact: Velasquez Barrett MD [phone] Armida Vasquez MD [phone] Wally Garcia MD [phone] Quick facts ? Patient randomized after delivery if conor renee met inclusion criteria a nd accepted ? Medication comes from IDS not pharmacy , IDS Phone Number Ext. [phone] or cell ? Patient can start meds as soon as they tolerate PO ? One tab per day of either placebo or H CTZ ? Medication stays with patient ? Medication will appear on AUG, Nurses need to maggie as given (No barcode) ? Medication needs to counted prior to d ischarge by research software team leader ? All follow ups need [...] Sign Reading Time Taken Comments Blood Pressure 120/93 08/10/2019 8:29 PM LIE DETECTOR OPERATOR Pulse 57 08/10/2019 8:29 PM LIE DETECTOR OPERATOR Temperature 36.9 C (98.5 F) 08/10/2019 5:31 PM LIE DETECTOR OPERATOR Respiratory Rate 14 08/10/2019 8:29 PM LIE DETECTOR OPERATOR Oxygen Saturation 100% 08/10/2019 8:29 PM LIE DETECTOR OPERATOR Inhaled Oxygen Concentration - - Weight 33.7 kg (74 lb 4.8 oz) 08/10/2019 5:31 PM LIE DETECTOR OPERATOR Height 149.9 cm (4' 11") 08/10/2019 5:31 PM LIE DETECTOR OPERATOR Body Mass Index 15.01 08/10/2019 5:31 PM LIE DETECTOR OPERATOR documented in this encounter Discharge Instructions Jerardo Coyne FNP - 08/10/2019 You were seen today for Chief Complaint Patient presents with Sore Throat Your ER diagnosis was ICD-10-CM ICD-9-CM 1. Sore throat J02.9 462 NO LIFE-THREATENING FINDINGS ON TODAY'S EXAM. YOUR PRESCRIPTIONS : Medication List ASK your doctor about these medications ibuprofen 600 mg tablet Commonly known as: IBU Take 1 tablet by mouth every 6 (six) hours as needed for Pain (scale 1-3) or Pain (scale 4-6) (Pain). Take with food or milk. vit 60-sjjk-lzdto-dha 29 mg iron-1 mg -250 mg combo pack Commonly known as: SELECT-OB + DHA Take 1 Packet by mouth daily. ER precautions and follow up : 1. Return to ER if your symptoms should worsen or fail to improve within 72 hours. 2. The care provided in the emergency room was for acute problems only. 3. You should follow up with your primary care provider within 72 hours. 4. Fill and take all [...] 1. A PHYSICIAN OF YOUR CHOICE 2. [facility], . LOCATIONS IN [facility] 3. [facility], [address] [place] [address]; [phone] OR, IF YOU WISH TO FOLLOW-UP WITHIN THE [facility], MAY TRY THESE OPTIONS (CLINIC APPOINTMENTS AVAILABLE ON BKVP-CS-DNER BASIS): 1. SCHEDULE AN APPOINTMENT ONLINE AT [facility] 2. OR CALL THE [facility] AT OR 3. OR CALL YOUR [facility] PHYSICIAN'S OFFICE DIRECTLY IF YOU ARE ALREADY AN ESTABLISHED [facility] PATIENT. AttachmentsThe following attachments cannot be sent through Care Everywhere.Sore Throats, Self-Care for (Togolese)documented in this encounter Plan of Treatment Date Type Specialty Care Team Description 08/13/2019 Contact Center Analyst Visit Maternal Medicine 08/27/2019 Routine Visit OB Satellites Faculty, [facility] Name Type Priority Associated Diagnoses Date/Ti me THROAT CULTURE LAB STAT Sore throat 08/10/2019 6 :59 PM LIE DETECTOR OPERATOR Name Type Priority Associated Diagnoses Order S chedule THROAT CULTURE LAB Routine Sore throat ONCE for 1 Oc currences starting 08/10/2019 unti l 08/10/2019 Health Maintenance Due Date Last Done Comments [...] Name Priority Date/Time Associated Diagnosis Comme nts ADC,CLC OR LCC ONLY STAT 08/10/2019 6:59 PM Sore throat R esults for this - INFLUENZA A & B LIE DETECTOR OPERATOR procedure are in DIRECT ANTIGEN the results section. RAPID STREP SCREEN STAT 08/10/2019 6:59 PM Sore throat Re sults for this FOR GROUP A LIE DETECTOR OPERATOR procedure are i n the results section. NOTICE OF PRIVACY Routine 08/10/2019 5:19 PM PRACTICES LIE DETECTOR OPERATOR documented in this encounter Results ADC,CLC OR LCC ONLY - INFLUENZA A & B DIRECT ANTIGEN (08/10/2019 6:59 PM LIE DETECTOR OPERATOR) Pathologist Sig nature Influenza A Negative Negative [facility] Influenza B Negative Negative [facility] Specimen Swab - NARE, LEFT SIDE Performing Organization Address City/[facility] Phone Number [facility] CLIA: [id number], [address] [place] [address] RAPID STREP SCREEN FOR GROUP A (08/10/2019 6:59 PM LIE DETECTOR OPERATOR) Pathologist Sig nature Streptococcus pyogenes Negative Negative [facility] (group A) antigen [facility] Specimen Swab - THROAT Performing Organization Address [facility]/Zipcode Phone Number [facility] CLIA: [id number], [address] [place], [place] [address] documented in this encounter Visit Diagnoses Diagnosis Sore throat - Primary Acute pharyngitis documented in this encounter Administered Medications Medication Order MAR Action Action Date Dose Rate Site acetaminophen (TYLENOL) tablet Given 08/10/2019 6:58 PM LIE DETECTOR OPERATOR 650 mg 650 mg 650 mg, Oral, ONCE, 1 dose, Tue08/10/19 at 2000, MITCH documented in this encounter Insurance Payer Benefit Plan / Subscriber ID Effective Dates Phone Addre ss Type Group [facility] xxxxxxxxx 2018-[place] Medicaid COMM PLAN - t MANAGED MEDICAID ([place]) [place] [address] documented as of this encounter Advance Directives Name Relationship Healthcare Agent Relationship Co mmunication Yasmani Pierce Father Primary healthcare agent
--- OUTSIDE RECORDS SUMMARY | 2019-10-29 22:34 | XMS REPORT | Summary of Care ---
:1995 Author Organization [facility] Address [address] [place] [address] Care Team Providers Name Role Phone Emeli Draper Primary Care Provider Reason for Visit Reason Comments MFM Visit (Routine) Status Reason Specialty Diagnoses / Referred By Referred To Procedures Contact Contact New Request OB Satellites Diagnoses Elevated blood pressure reading without diagnosis of hypertension [facility] Cent[facility] Procedures CONSULT/REFERRAL MATERNAL MEDICINE FACULTY/FELLOW Preferred location: [facility] [address] [place] [address] Phone: Fax: Encounter Details Date Type Department Care Team Description 08/27/2019 Routine [facility]- Lambert Jacob MD [address] [place] [address] [id number] [place] [address] History of gestational hypertension (Rylie antunez Dx); Visit Marcelo [facility] Supervision of high risk , ante ; [address] Tobacco abuse; [place], [place] Underweight; [address] History of delivery; [phone] Multiparity; Maternal tobacc o use in first trimester Allergies Active Allergy Reactions Severity Noted Date Comments Flu Vac Qv Live 2017 (2-49yrs) Swelling 10/21/2017 documented as of this encounter (statuses as of 08/27/2019) Medications Medication Sig Dispensed Refills Start Date End Date Status ibuprofen 600 mg tablet Take 1 tablet by 60 tablet 1 8 Active mouth every 6 (six) hours as needed for Pain (scale 1-3) or Pain (scale 4-6) (Pain). Take with food or milk. vit Take 1 Packet by 30 Each 6 08/08/2019 Active 65-ujsr-pvbhj-dha mouth daily. (SELECT-OB + DHA) 29 mg iron-1 mg -250 mg combo packIndications: Supervision of high risk , antepartum doxylamine-pyridoxine, Take 1 tablet by 30 tablet 0 08/27/2019 Active vit B6, 10-10 mg per mouth 2 (two) tabletIndications: times daily. Supervision of high risk , antepartum documented as of this encounter (statuses as of 08/27/2019) Active Problems Problem Noted Date History of gestational hypertension 08/08/2019 History of delivery 08/08/2019 Multiparity 08/08/2019 Tobacco abuse 08/08/2019 Underweight 08/08/2019 Elevated blood pressure reading without diagnosis of h ypertension 08/08/2019 (spontaneous vaginal delivery) 05/26/2018 Research study patient 05/25/2018 Overview: Patient is in the HCTZ study IRB # [id number] Any questions please contact: Velasquez Barrett MD [phone] Armida Vasquez MD [phone] Wally Garcia MD [phone] Quick facts ? Patient randomized after delivery if t víctor met inclusion criteria a nd accepted ? Medication comes from IDS not pharmacy , IDS Phone Number Ext. [phone] or cell ? Patient can start meds as soon as they tolerate PO ? One tab per day of either placebo or H CTZ ? Medication stays with patient ? Medication will appear on AUG, Nurses need to maggie as given (No barcode) ? Medication needs to counted prior to d ischarge by research long line teamster ? All follow ups need to be on POD or PP day # 14 or more ? Patient needs to be reminded to bring their left over medication and bottle back to their visit ? IDS needs to be notified at time of di greyson ? Please contact Dr. Barrett with any [...] as of this encounter (statuses as of 08/27/2019) Resolved Problems Problem Noted Date Resolved Date Protein-calorie malnutrition, mild 08/03/201710/21 documented as of this encounter (statuses as of 08/27/2019) Immunizations Name Administration Dates Next Due HPV9 [...] Sign Reading Time Taken Comments Blood Pressure 126/85 08/27/2019 9:52 AM CDT Pulse 100 08/27/2019 9:52 AM CDT Temperature 37.1 C (98.8 F) 08/27/2019 9:52 AM CDT Respiratory Rate 16 08/27/2019 9:52 AM CDT Oxygen Saturation - - Inhaled Oxygen Concentration - - Weight 34.5 kg (76 lb) 08/27/2019 9:52 AM CDT Height 149.9 cm (4' 11") 08/27/2019 9:52 AM CDT Body Mass Index 15.35 08/27/2019 9:52 AM CDT documented in this encounter Progress Notes Velasquez Jacob MD - 08/27/2019 9:30 AM CDT Chief complaint: Chief Complaint Patient presents with MFM Visit HPI Histories OB History Para Term AB Living [...] file Gets together: Not on file Attends alevism service: Not on file Active member of [...] control/protection: None Comment: last sexual intercourse 07/02/19 Labs I have reviewed the patient's labs. Radiology No new radiology. Allergies Marah is allergic to flu vac qv live 2017 (2-49yrs). Medications Marah has a current medication list which includes the following prescription(s): doxylamine-pyridoxine (vit b6), vit 25-ndph-fxhnp-dha, and ibuprofen. Review of Systems BP 126/85 (BP Location: Right arm, Patient Position: Sitting, BP CUFF SIZE: Adult Medium) | Pulse 100 | Temp 37.1 C (98.8 F) (Oral) | Resp 16 | Ht 4' 11" (1.499 m) | Wt 76 lb (34.5 kg) | LMP 06/05/2019 | BMI 15.35 kg/m Pregravid BMI: 15.1 Physical Exam Assessment/Plan Return to clinic in 2 weeks. This visit did not involve counseling and coordination that comprised more than 50% of the visit time. documented in this encounter Plan of Treatment Health Maintenance Due Date Last Done Comments HPV VACCINES (2 - Female 07/29/2020 05/26/2018 [...] from - Tdap) 2008 ([place]) PAP SMEAR 08/08/2022 08/08/2019 INFLUENZA VACCINE Discontinued MENINGOCOCCAL VACCINE Aged Out No longer eligible based on patient's age to complete this to pic PNEUMOCOCCAL 0-64 YEARS Discontinued COMBINED SERIES documented as of this encounter Procedures Procedure Name Priority Date/Time Associated Diagnosis Comme nts POCT URINALYSIS Routine 08/27/2019 9:53 AM Supervision of [place] Results for this CDT risk , procedure ar e in antepartum the results section. documented in this encounter Results POCT URINALYSIS W SPECIFIC GRAVITY (08/27/2019 9:53 AM CDT) Pathologist Sig nature POCT U SP GRAV . 1.005 - 1.025 mg/dl POCT PH U 8 5 - 8 mg/dl POCT U LEUK EST neg Negative - Negative POCT U NIT neg Negative - Negative POCT U PROT trace Negative - Negative POCT U GLU neg Negative - Negative POCT U KETONE neg Negative - Negative POCT U UROBILI . 0.2 - 1 mg/dl POCT U BILI . Negative - Negative POCT U BLD neg Negative - Negative POCT U COLOR POCT U APPEAR Specimen Urine - URINE, CLEAN CATCH documented in this encounter Visit Diagnoses Diagnosis History of gestational hypertension - Pr imary Supervision of high risk , ante Tobacco abuse Tobacco use disorder Underweight History of delivery Multiparity Maternal tobacco use in first trimester documented in this encounter Insurance Payer Benefit Plan / Subscriber ID Effective Dates Phone Addre ss Type Group [facility] xxxxxxxxx 2018-[facility] Medicaid COMM PLAN - t MANAGED MEDICAID ([place]) [place] [address] documented as of this encounter Advance Directives Name Relationship Healthcare Agent Relationship Co mmunication Yasmani Pierce Father Primary healthcare agent
--- OUTSIDE RECORDS SUMMARY | 2019-10-29 22:34 | XMS REPORT | Summary of Care ---
:[address] [facility] Address [address] [place] [address] Care Team Providers Name Role Phone Emeli Draper Primary Care Provider Encounter Details Date Type Department Care Team Description 08/13/2019 Abstract [facility] Jesus Calvert, CARDIAC REHABILITATION SPECIALIST [address] [facility] [address] [place] [address] [place] [address] [phone] Allergies Active Allergy Reactions Severity Noted Date [...] Packet by 30 Each 6 08/08/2019 Active 90-spob-pdkxu-dha mouth daily. (SELECT-OB + DHA) 29 mg [...] Any questions please contact: Velasquez Barrett MD [phone] Armida Vasquez MD [phone] Wally Garcia MD [phone] Quick facts ? Patient randomized after delivery if conor renee met inclusion criteria a nd accepted ? Medication comes from IDS not pharmacy , IDS Phone Number Ext. [phone] or cell ? Patient can start meds as soon as they tolerate PO ? One tab per day of either placebo or H CTZ ? Medication stays with patient ? Medication will appear on AUG, Nurses need to maggie as given (No barcode) ? Medication needs to counted prior to d ischarge by research production team member ? All follow ups need [...] Effective Dates Phone Addre ss Type Group [facility] ST[facility] xxxxxxxxx 2018-[facility] Medicaid COMM PLAN - t MANAGED MEDICAID documented as of this encounter Advance Directives Name Relationship Healthcare Agent Relationship Co mmunication Yasmani Pierce Father Primary healthcare agent
--- OUTSIDE RECORDS SUMMARY | 2019-10-29 22:35 | XMS REPORT | Summary of Care ---
:1997 Author Organization [facility] Address [address] [place] [address] Care Team Providers Name Role Phone Emeli Draper Primary Care Provider Reason for Visit Reason Comments ULTRASOUND (Routine) Status Reason Specialty Diagnoses / Referred By Referred To Procedures Contact Contact Closed Maternal Diagnoses Supervision of high risk , antepartum Jesus Draper Medicine Procedures CONSULT MATERNAL MEDICINE ULTRASOUND Preferred Location: [facility] [address] [place] [address] Encounter Details Date Type Department Care Team Description 10/24/2019 Class A Regional Drivers [facility] Su pervision of with history of pre-term labor in second trimester; Ultrasound- Yuly BELLE Supervision of high risk in se cond trimester; [address] [facility] [address] [facility] Encounter for screening for risk of pre-term labor [place], [place] [address] [place], [place] [phone] [id number] Allergies Active Allergy Reactions Severity Noted Date Comments Flu Vac Qv Live 2017 (2-49yrs) Swelling 10/21/2017 documented as of this encounter (statuses as of 10/24/2019) Medications Medication Sig Dispensed Refills Start Date End Date Status ibuprofen 600 mg Take 1 tablet by 60 tablet 1 05/26/2018 Active tablet mouth every 6 (six) hours as needed for Pain (scale 1-3) or Pain (scale 4-6) (Pain). Take with food or milk. vit Take 1 Packet by 30 Each 6 08/08/2019 Active 87-jkvl-nitds-dha mouth daily. (SELECT-OB + DHA) 29 mg iron-1 mg -250 mg combo packIndications: Supervision of high risk , antepartum doxylamine-pyridoxine, Take 1 tablet by 30 tablet 0 08/27/2019 Active vit B6, 10-10 mg per mouth 2 (two) tabletIndications: times daily. Supervision of high risk , antepartum proMETHazine 25 mg Take 1 tablet by 30 tablet 1 09/10/2019 Active tabletIndications: mouth every 4 Nausea and vomiting in (four) hours as prior to 22 needed for Nausea weeks gestation and Vomiting (N/V). documented as of this encounter (statuses as of 10/24/2019) Active Problems Problem Noted Date History of gestational hypertension 08/08/2019 History of delivery 08/08/2019 Multiparity 08/08/2019 Tobacco abuse 08/08/2019 Underweight 08/08/2019 Elevated blood pressure reading without diagnosis of h ypertension 08/08/2019 Research study patient 05/25/2018 Overview: Patient is in the HCTZ study IRB # [id number] Any questions please contact: Velasquez Barrett MD [phone] Armida Vasquez MD [phone] Wally Garcia MD [phone] Quick facts ? Patient randomized after delivery if t shavony met inclusion criteria a nd accepted ? Medication comes from IDS not pharmacy , IDS Phone Number Ext. [phone] or cell ? Patient can start meds as soon as they tolerate PO ? One tab per day of either placebo or H CTZ ? Medication stays with patient ? Medication will appear on AUG, Nurses need to maggie as given (No barcode) ? Medication needs to counted prior to d ischarge by research sports team manager ? All follow ups need to be on POD or PP day # 14 or more ? Patient needs to be reminded to bring their left over medication and bottle back to their visit ? IDS needs to be notified at time of di scharge ? Please contact Dr. Barrett with any Questions Nausea and vomiting in prior to 22 weeks ges tation 11/04/2017 Supervision of high risk , antepartum 018 Tobacco use during 10/21/2017 Overview: Reports quit Unspecified severe protein-calorie malnutrition 2017 Estimated Date of Delivery Comments Yes 03/11/2020 Based on last menstr ual period of 06/05/2019 documented as of this encounter (statuses as of 10/24/2019) Resolved Problems Problem Noted Date Resolved Date (spontaneous vaginal delivery) 05/26/201809/09 Gestational hypertension 05/24/2018 09/10/2019 34 weeks gestation of 05/24/2018 09/10/19 20 Severe pre-eclampsia 05/24/2018 09/10/2019 Protein-calorie malnutrition, mild 08/03/201710/21 documented as of this encounter (statuses as of 10/24/2019) Immunizations Name Administration Dates Next Due HPV9 [...] Travel End No recent travel history available. COVID-19 Exposure Response Date Recorded In the last month, have you been in contact with No / Unsure 10/23/2019 10:48 AM CDT someone who was confirmed or suspected to have Coronavirus / COVID-19? documented as of this encounter Last Filed Vital Signs Not on filedocumented in this encounter Plan of Treatment Date Type Specialty Care Team Description 11/01/2019 Telemedicine Visit OB Satellites Eitan Draper, PST SPECIALIST [address] [place] [address] [phone] Health Maintenance Due Date Last Done Comments [...] filedocumented in this encounter Visit Diagnoses Diagnosis Supervision of with history of pre-term labor in second trimester with history of pre-term labor Supervision of high risk in se cond trimester Unspecified high-risk Encounter for screening for risk of pre- term labor documented in this encounter Insurance Payer Benefit Plan / Subscriber ID Effective Dates Phone Addre ss Type Group [facility] STAR xxxxxxxxx 2018-[facility] Medicaid COMM PLAN - t MANAGED MEDICAID ([place]) [place] [address] documented as of this encounter Advance Directives Name Relationship Healthcare Agent Relationship Co mmunication Yasmani Pierce Father Primary healthcare agent
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
--- OUTSIDE RECORDS SUMMARY | 2019-10-29 22:35 | XMS REPORT | Summary of Care ---
:1995 Author Organization [facility] Address [address] [place] [address] Care Team Providers Name Role Phone Emeli Draper Primary Care Provider Encounter Details Date Type Department Care Team Description 10/24/2019 Abstract [facility]- A Jesus Calvert, RELOCATION ASSOCIATE [address] [facility] [address] [place] [address] [address] [place] [address] [phone] Allergies Active Allergy Reactions Severity Noted Date [...] Packet by 30 Each 6 08/08/2019 Active 50-zncc-nzwsk-dha mouth daily. (SELECT-OB + DHA) 29 mg [...] Any questions please contact: Velasquez Barrett MD [phone] Armida Vasquez MD [phone] Wally Garcia MD [phone] Quick facts ? Patient randomized after delivery if t shavony met inclusion criteria a nd accepted ? Medication comes from [facility] not pharmacy , [facility]S Phone Number Ext. [phone] or cell ? Patient can start meds as soon as they tolerate PO ? One tab per day of either placebo or H CTZ ? Medication stays with patient ? Medication will appear on AUG, Nurses need to maggie as given (No barcode) ? Medication needs to counted prior to d ischarge by research care team coordinator scheduler ? All follow ups need to be [...] Care Team Description 11/01/2019 Telemedicine Visit OB [facility] Eitan Draper R, RELOCATION ASSOCIATE [address] [place] [id number] [phone] Health Maintenance Due Date Last Done Comments [...] Effective Dates Phone Addre ss Type Group [facility] STAR xxxxxxxxx 2018-Presen Medicaid COMM PLAN - t MANAGED MEDICAID documented as of this encounter Advance Directives Name Relationship Healthcare Agent Relationship Co mmunication Yasmani Pierce Father Primary healthcare agent
[2019-10-29 23:14] LABS: Absolute Lymphocytes (CBC) 3.3 K/uL (0.7-4.9); Basophils % 0.3 % (0-1.3); Hematocrit 35.2 % (36.0-45.0); Lymphocytes % 30.7 % (15.3-44.8); MPV 9.1 fL (7.6-11.3); RBC Red Blood Cell Count 4.09 M/uL (3.86-4.86)
[2019-10-29 23:37] LABS: ALT/SGPT 15 U/L (12-78); AST/SGOT 11 U/L (15-37); Albumin 3.3 g/dL (3.4-5.0); Alkaline Phosphatase 79 U/L (45-117); BUN Blood Urea Nitrogen 10 mg/dL (7-18); Bicarbonate 28 mmol/L (21-32); Bilirubin Direct < 0.1 mg/dL (0-0.2); Bilirubin Total 0.1 mg/dL (0.2-1.0); Glucose Level 83 mg/dL (74-106); Lipase 113 U/L (73-393); Potassium 3.7 mmol/L (3.5-5.1); Protein, Total 7.4 g/dL (6.4-8.2); Sodium Level 139 mmol/L (136-145)
[2019-10-29] MEDS ORDERED: CEFTRIAXONE/SWI 1gm 1 GM/10 ML SYR ONE (23:50)
[2019-10-29 23:52] LABS: Urine Blood NEGATIVE (NEG); Urine Glucose NEGATIVE (NEG); Urine Protein NEGATIVE (NEG); Urine Specific Gravity >1.030 (1.005-1.030); Urine pH 6.5 (5.0-7.0)
--- NOTE | 2019-10-30 00:31 | EDPHYS ---
Physician Documentation [facility] Name: Marah Pierce Age: 23 yrs Sex: Female : 1995 Arrival Date: 10/29/2019 Time: 22:32 Bed 7 Private MD: ED Physician Eliu Azul HPI: 10/28 23:17 This 23 yrs old Female presents to ER via Ambulatory with complaints of pm1 Abdominal Cramping. 23:17 The patient presents to the emergency department with Abdominal cramping and burning pm1 with urination that started today. The estimated gestational age is 21 weeks. course: care: private OB physician, Patient recently had 20 week ultrasound and told that fetus looks approximately 10 ounces, Leakage of Fluid: none appreciated, Ultrasound: the patient had an ultrasound, which was normal. Associated signs and symptoms: Pertinent positives: dysuria, Pertinent negatives: fever, nausea, vomiting. The patient has not experienced similar symptoms in the past. Historical: - Allergies: 22:52 flu shot; sg - Home Meds: 22:52 promethazine suppository [Active]; sg - PMHx: 22:52 None; sg - PSHx: 22:52 None; sg - Immunization history:: Adult Immunizations up to date. - Social history:: Smoking status: Patient reports the use of cigarette tobacco products, smokes one-half pack cigarettes per day. ROS: 23:17 Constitutional: Negative for fever, chills, and weight loss, Neck: Negative for injury, pm1 pain, and swelling, Cardiovascular: Negative for chest pain, palpitations, and edema, Respiratory: Negative for shortness of breath, cough, wheezing, and pleuritic chest pain. 23:17 Back: Negative for injury and pain, MS/Extremity: Negative for injury and deformity, Skin: Negative for injury, rash, and discoloration. 23:17 Neuro: Negative for headache, weakness, numbness, tingling, and seizure. 23:17 Abdomen/GI: Positive for abdominal cramps, Negative for nausea, vomiting, and diarrhea. 23:17 : Positive for burning with urination, Negative for flank pain. Exam: 23:17 Constitutional: This is a well developed, well nourished patient who is awake, alert, pm1 and in no acute distress. Head/Face: Normocephalic, atraumatic. Chest/axilla: Normal chest wall appearance and motion. Nontender with no deformity. No lesions are appreciated. Cardiovascular: Regular rate and rhythm with a normal S1 and S2. No gallops, murmurs, or rubs. Normal PMI, no JVD. No pulse deficits. Respiratory: Lungs have equal breath sounds bilaterally, clear to auscultation and percussion. No rales, rhonchi or wheezes noted. No increased work of breathing, no retractions or nasal flaring. 23:17 Back: No spinal tenderness. No costovertebral tenderness. Full range of motion. Skin: Warm, dry with normal turgor. Normal color with no rashes, no lesions, and no evidence of cellulitis. MS/ Extremity: Pulses equal, no cyanosis. Neurovascular intact. Full, normal range of motion. 23:17 Abdomen/GI: Inspection: gravid appearance, is noted, Palpation: abdomen is soft and non-tender, in all quadrants, mass, is not appreciated, rebound tenderness, is not appreciated. 23:17 Neuro: Exam negative for acute changes, Orientation: is normal, Mentation: is normal, Motor: is normal, moves all fours, Sensation: is normal, no obvious gross deficits. Vital Signs: 22:34 BP 115 / 71; Pulse 72; Resp 18; Temp 97.7; Pulse Ox 100% on R/A; Weight 36.29 kg (R); sg Height 4 ft. 11 in. (149.86 cm) (R); Pain 2/10; 10/29 00:07 BP 102 / 63; Pulse 69; Resp 16; Pulse Ox 100% on R/A; rv 10/28 22:34 Body Mass Index 16.16 (36.29 kg, 149.86 cm) sg MDM: 10/28 22:45 Patient medically screened. pm1 10/29 00:30 Data reviewed: vital signs. Data interpreted: Pulse oximetry: on room air is 100 %. pm1 Interpretation: normal. Counseling: I had a detailed discussion with the patient and/or guardian regarding: the historical points, exam findings, and any diagnostic results supporting the discharge/admit diagnosis, lab results, the need for outpatient follow up, to return to the emergency department if symptoms worsen or persist or if there are any questions or concerns that arise at home. 00:38 ED course: Patient without any tenderness on examination. Clinically appears to have pm1 UTI, prior suprapubic pain with burning with urination. Will discharge home with abx. 10/28 22:46 Order name: Basic Metabolic Panel; Complete Time: 23:39 pm1 10/28 22:46 Order name: CBC with Diff; Complete Time: 23:31 pm1 10/28 22:46 Order name: Hepatic Function; Complete Time: 23:39 pm10/28 22:46 Order name: Lipase; Complete Time: 23:39 pm1 10/28 23:12 Order name: Urine Microscopic Only; Complete Time: 00:37 pm1 10/28 23:16 Order name: Urine Dipstick--Ancillary (enter results); Complete Time: 00:09 mw2 10/28 22:46 Order name: IV Saline Lock; Complete Time: 23:14 pm1 10/28 22:46 Order name: Labs collected and sent; Complete Time: 23:14 pm10/28 22:46 Order name: Urine Dipstick-Ancillary (obtain specimen); Complete Time: 23:14 pm10/28 22:46 Order name: Urine Test (obtain specimen); Complete Time: 23:14 pm1 10/28 23:12 Order name: FHT's; Complete Time: 23:14 pm10/28 23:16 Order name: Urine --Ancillary (enter results); Complete Time: 00:09 mw2 Administered Medications: 10/28 23:50 Drug: Rocephin 1 grams Route: IV; Rate: calculated rate; Site: right antecubital; rv Disposition: 10/29 06:52 Co-signature as Attending Physician, Eliu Azul MD I agree with the assessment and tw4 plan of care. Disposition: 10/30/19 00:31 Discharged to Home. Impression: Urinary tract infection, site not specified. - Condition is Stable. - Discharge Instructions: and Urinary Tract Infection. - Prescriptions for Macrobid 100 mg Oral Capsule - take 1 capsule by ORAL route every 12 hours for 10 days; 20 capsule. - Medication Reconciliation Form, Thank You Letter, Antibiotic Education, Prescription Opioid Use form. - Follow up: Emergency Department; When: As needed; Reason: Worsening of condition. Follow up: Private Physician; When: 2 - 3 days; Reason: Recheck today's complaints, Continuance of care, Re-evaluation by your physician. - Problem is new. - Symptoms have improved. Signatures: Dispatcher [employer] EDMS Ady Machuca, RN RN sg Yaron Botello, INTAKE ASSESSOR INTAKE ASSESSOR pm1 Eliu Azul MD MD tw4 Michael Oliver RN RN rv Corrections: (The following items were deleted from the chart) 00:40 00:31 10/30/2019 00:31 Discharged to Home. Impression: Urinary tract infection, site rv not specified. Condition is Stable. Forms are Medication Reconciliation Form, Thank You Letter, Antibiotic Education, Prescription Opioid Use. Follow up: Emergency Department; When: As needed; Reason: Worsening of condition. Follow up: Private Physician; When: 2 - 3 days; Reason: Recheck today's complaints, Continuance of care, Re-evaluation by your physician. Problem is new. Symptoms have improved. pm1
--- NOTE | 2019-10-30 00:31 | ER ---
Nurse's Notes [facility] Name: Marah Pierce Age: 23 yrs Sex: Female : 1995 Arrival Date: 10/29/2019 Time: 22:32 Bed 7 Private MD: Diagnosis: Urinary tract infection, site not specified Presentation: 10/28 22:34 Acuity: TRES 3 sg 22:34 Chief complaint: Patient states: Im 5 mnths preg, I have had some burning with sg urination for several weeks, now im having cramping in my lower abd, denies N/V/D/Fever at this time. Coronavirus screen: Proceed with normal triage. Ebola Screen: Patient negative for fever greater than or equal to 101.5 degrees Fahrenheit, and additional compatible Ebola Virus Disease symptoms Patient denies exposure to infectious person. Patient denies travel to an Ebola-affected area in the 21 days before illness onset. No symptoms or risks identified at this time. Initial Sepsis Screen: Does the patient meet any 2 criteria? No. Patient's initial sepsis screen is negative. Does the patient have a suspected source of infection? Yes: Dysuria/Frequency/Urgency/UTI. Risk Assessment: Do you want to hurt yourself or someone else? Patient reports no desire to harm self or others. Onset of symptoms was October 29, 2019. Care prior to arrival: None. Transition of care: patient was not received from another setting of care. 22:34 Method Of Arrival: Ambulatory sg Historical: - Allergies: 22:52 flu shot; sg - Home Meds: 22:52 promethazine suppository [Active]; sg - PMHx: 22:52 None; sg - PSHx: 22:52 None; sg - Immunization history:: Adult Immunizations up to date. - Social history:: Smoking status: Patient reports the use of cigarette tobacco products, smokes one-half pack cigarettes per day. Screenin:13 Abuse screen: Denies threats or abuse. Denies injuries from another. Nutritional rv screening: No deficits noted. Tuberculosis screening: No symptoms or risk factors identified. Fall Risk None identified. Assessment: 23:12 General: Appears comfortable, Behavior is calm, cooperative. Pain: Complains of pain in rv abdomen. Neuro: Level of Consciousness is awake, alert, obeys commands, Oriented to person, place, time, situation. Cardiovascular: Patient's skin is warm and dry. Respiratory: Airway is patent Respiratory effort is even, unlabored, Respiratory pattern is regular, symmetrical. GI: Abdomen is flat, non-distended, Bowel sounds present X 4 quads. Abd is soft and non tender X 4 quads. : Reports burning with urination, since weeks cramping. Derm: Skin is intact. Vital Signs: 22:34 BP 115 / 71; Pulse 72; Resp 18; Temp 97.7; Pulse Ox 100% on R/A; Weight 36.29 kg (R); sg Height 4 ft. 11 in. (149.86 cm) (R); Pain 2/10; 10/29 00:07 BP 102 / 63; Pulse 69; Resp 16; Pulse Ox 100% on R/A; rv 10/28 22:34 Body Mass Index 16.16 (36.29 kg, 149.86 cm) sg Vitals: 00:06 Heart Tones 150. rv ED Course: 10/28 22:32 Patient arrived in ED. cl3 22:34 Triage completed. sg 22:43 Yaron Botello NP is PHCP. pm1 22:43 Eliu Azul MD is Attending Physician. pm1 22:52 Arm band placed on. sg 23:05 Inserted saline lock: 20 gauge in right antecubital area, using aseptic technique. oe Blood collected. 23:12 Michael Oliver, ROVERTO is Primary Nurse. rv 23:14 Patient has correct armband on for positive identification. Pulse ox on. NIBP on. rv 10/29 00:06 No provider procedures requiring assistance completed. rv Administered Medications: 10/28 23:50 Drug: Rocephin 1 grams Route: IV; Rate: calculated rate; Site: right antecubital; rv Outcome: 10/29 00:31 Discharge ordered by MD. pm1 00:40 Patient left the ED. rv Signatures: Ady Machuca RN RN Yaron Botello NP [employer] pm1 Andrew Batista oe Michael Oliver, ROVERTO RN rv Onofre Jurado cl3 Corrections: (The following items were deleted from the chart) 10/28 23:13 23:12 : Denies burning with urination, inability to void, urinary frequency, rv rv
[2019-10-30 00:34] LABS: Urine Bacteria <20 /HPF (<20); Urine Culture Reflex Order NOT NEEDED; Urine RBC <5 /HPF (NONE SEEN); Urine Urothelial Cells <5 /HPF (NONE SEEN)
[2019-10-30 00:47] VITALS: TEMP 97.7; O2SAT 100
[2019-10-30 00:48] VITALS: BP 102/63
== END 2019-10-30 00:40 | disposition home or self-care (01) ==
LOC: ER 22:29
DX: O23.42 Unspecified infection of urinary tract in pregnancy, second trimester (principal); O99.332 Smoking (tobacco) complicating pregnancy, second trimester; F17.210 Nicotine dependence, cigarettes, uncomplicated; Z3A.21 21 weeks gestation of pregnancy; Z88.7 Allergy status to serum and vaccine
CPT/HCPCS: 85025; 80048; 36415; 81025; 80076; 83690; 96374; 99284; J0696; 81003; 81015

== ENCOUNTER 2020-09-12 10:02 | Emergency (ER) | payer OTHER ==
--- OUTSIDE RECORDS SUMMARY | 2020-09-12 10:08 | XMS REPORT | Continuity of Care Document ---
:1995 Author Organization [facility] t Address [address] [place] [address] Care Team Providers Name Role Phone Giovanni POOLE Attending Clinician Doctor Unassigned, Name Attending Clinician Unavailable Visit, Nurse Attending Clinician Unavailable Baron POOLE, R Attending Clinician Problems This patient has no known problems. Allergies, Adverse Reactions, Alerts This patient has no known allergies or adverse reactions. Medications This patient has no known medications. Procedures This patient has no known procedures. Encounters Start End Encounter Admission Attending Care Care Encounter Source Date/Time Date/Time Type Type Clinicians Facility Department ID 2020-09-09 2020-09-09 GILBERT Bearden [id number] 18:38:00 20:41:00 Tash Emery [id number] [facility] [id number] [place] [id number] 2020-09-09 2020-09-09 Orders Doctor BECKMAN [id number] 00:00:00 00:00:00 Only Unassigned, WHIT [id number] [facility] [id number] [id number] 2020-09-01 2020-09-01 Nurse Visit, [facility] [id number] 13:14:18 13:29:18 Visit [facility] CYLINDER HEAD ASSEMBLER [id number] [facility] [id number] MATERNAL [id number] & CHILD 107 [facility] 2020-09-01 2020-09-01 Orders Doctor KARUNA [id number] 00:00:00 00:00:00 Only Unassigned, WHIT [id number] [place] [facility] [id number] [id number] 2020-06-03 2020-06-03 Nurse Visit, [facility] [id number] 10:00:12 10:31:51 [facility] CYLINDER HEAD ASSEMBLER [id number] [facility] [id number] MATERNAL [id number] & CHILD 107 [facility] 2020-06-03 2020-06-03 Telephone [facility] [id number] 00:00:00 00:00:00 Eitannda R CYLINDER HEAD ASSEMBLER [id number] [facility] [id number] MATERNAL [id number] & CHILD 107 [facility] 2020-04-17 2020-04-17 Office [facility] [id number] 13:18:15 13:58:29 Visit Eitannda R CYLINDER HEAD ASSEMBLER [id number] [facility] [id number] MATERNAL [id number] & CHILD 107 [facility] Results This patient has no known results.
[2020-09-12 10:42] LABS: Absolute Lymphocytes (CBC) 1.5 K/uL (0.7-4.9); Basophils % 0.4 % (0-1.3); Hematocrit 42.8 % (36.0-45.0); Lymphocytes % 15.4 % (15.3-44.8); MPV 9.8 fL (7.6-11.3)
[2020-09-12 10:51] LABS: Protime INR 1.09
[2020-09-12] MEDS ORDERED: HYDROCOD 2.5mg-ACETAMIN 108mg/5mL Soln ONE (10:54)
[2020-09-12 11:07] LABS: BUN Blood Urea Nitrogen 10 mg/dL (7-18); Bicarbonate 26 mmol/L (21-32); Glucose Level 84 mg/dL (74-106); Potassium 3.6 mmol/L (3.5-5.1); Sodium Level 139 mmol/L (136-145)
--- NOTE | 2020-09-12 11:45 | RAD REPORT ---
EXAM DESCRIPTION: CT - Soft Tissue Neck W/Contr - 09/12/2020 11:31 am CLINICAL HISTORY: dysphagia;Sore throat COMPARISON: No comparisons TECHNIQUE: During dynamic enhancement using 100 milliliters nonionic IV contrast, axial 5 millimeter thick images of the neck were obtained. All CT scans are performed using dose optimization technique as appropriate and may include automated exposure control or mA/KV adjustment according to patient size. FINDINGS: Limited evaluation the paranasal sinuses shows no abnormality. Mastoid air cells are clear . Left tonsil is enlarged and abnormal. There is a 2.5 centimeter low-density mass enlarging the left t onsil. This is centrally hypodense with a peripheral mildly enhancing rim. Superior extent reaches th e soft palate. No significant compromise of airway diameter. Right tonsil and tongue base show no suspicious findings. No epiglottis abnormality. Vocal cords and laryngeal structures are normal. Numerous bilateral reactive type cervical lymph nodes are present. IMPRESSION: Left tonsillar abscess 2.5 cm in size.
[2020-09-12] MEDS ORDERED: dexAMETHasone 10 MG/ML VIAL ONE (12:10)
[2020-09-12] MEDS ORDERED: CLINDAMYCIN 600MG/D5W 600 MG/50 ML BAG IV ONE (12:10)
--- NOTE | 2020-09-12 12:17 | EDPHYS ---
Physician Documentation [facility] Name: Marah Pierce Age: 24 yrs Sex: Female : 1995 Arrival Date: 09/12/2020 Time: 10:03 Bed 18 Private MD: ED Physician Morro Cespedes HPI: 09/12 10:30 This 24 yrs old Female presents to ER via Ambulatory with complaints of Sore cp Throat, Abscess - tonsils, antibiotics not working. 10:30 The patient presents with sore throat, dysphagia, of both solids and liquids. The cp patient describes throat pain as constant. Onset: The symptoms/episode began/occurred 4 day(s) ago. Associated signs and symptoms: Pertinent positives: earache, Pertinent negatives chest pain, cough, fever, flu-like symptoms, vomiting. Patient reports she was seen at [place] [facility] for sore throat 4 days ago and prescribed Amoxicillin. Patient reports worsening sore throat and left ear pain. 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 - Social history:: Smoking status: . ROS: 10:35 Constitutional: Negative for body aches, chills, fever, poor PO intake. cp 10:35 Eyes: Negative for injury, pain, redness, and discharge. cp 10:35 ENT: Positive for difficulty swallowing, ear pain, sore throat, Negative for difficulty handling secretions. 10:35 Cardiovascular: Negative for chest pain, palpitations. 10:35 Respiratory: Negative for cough, shortness of breath, wheezing. 10:35 Abdomen/GI: Negative for abdominal pain, nausea, vomiting, and diarrhea. 10:35 Skin: Negative for rash. 10:35 Neuro: Negative for altered mental status, headache, weakness. 10:35 All other systems are negative. Exam: 10:40 Constitutional: The patient appears in no acute distress, alert, awake, non-toxic, well cp developed, well nourished. 10:40 Head/Face: Normocephalic, atraumatic. cp 10:40 Eyes: Periorbital structures: appear normal, Conjunctiva: normal, no exudate, no injection, Sclera: no appreciated abnormality, Lids and lashes: appear normal, bilaterally. 10:40 ENT: External ear(s): are unremarkable, Ear canal(s): are normal, clear, TM's: dullness, bilaterally, Nose: is normal, Mouth: Lips: moist, Oral mucosa: moist, Posterior pharynx: Airway: no evidence of obstruction, patent, Tonsils: bilaterally enlarged, with erythema, left more enlarged than right, no exudate, Uvula: midline, erythema, that is moderate, exudate, is not appreciated, Voice: is normal. 10:40 Neck: ROM/movement: is normal, is supple, no meningismus, no nuchal rigidity, Lymph nodes: lymphadenopathy is appreciated, anterior cervical nodes. 10:40 Chest/axilla: Inspection: normal, Palpation: is normal, no crepitus, no tenderness. 10:40 Cardiovascular: Rate: normal, Rhythm: regular. 10:40 Respiratory: the patient does not display signs of respiratory distress, Respirations: normal, no use of accessory muscles, no retractions, labored breathing, is not present, Breath sounds: are clear throughout, no decreased breath sounds, no stridor, no wheezing. 10:40 Abdomen/GI: Exam negative for discomfort, distension, guarding, Inspection: abdomen appears normal. Vital Signs: 10:12 BP 131 / 84; Pulse 96; Resp 17; Pulse Ox 99% on R/A; tw2 11:20 Temp 98.3(TE); tw2 12:20 BP 120 / 81; Pulse 79; Resp 17; Pulse Ox 99% on R/A; tw2 13:24 BP 145 / 90; Pulse 92; Resp 17; Pulse Ox 99% on R/A; tw2 MDM: 10:22 Patient medically screened. cp 12:41 Physician consultation: was contacted at 12:41, regarding consult, patient's condition, cp spoke with DR Millie Nicholson, ENT \T\[facility], recommends changing antibiotic to clindamycin and starting also oral steroid. 12:55 Data reviewed: vital signs, nurses notes, lab test result(s), radiologic studies, CT cp scan, and as a result, I will discharge patient. 12:55 Counseling: I had a detailed discussion with the patient and/or guardian regarding: the cp historical points, exam findings, and any diagnostic results supporting the discharge/admit diagnosis, lab results, radiology results, the need for outpatient follow up, an ENT specialist. 09/12 10:22 Order name: CBC with Diff; Complete Time: 10:56 cp 09/12 10:57 Interpretation: Normal except: RBC 5.20; MCV 82.3; CARMEL% 76.2. cp 09/12 10:22 Order name: BMP; Complete Time: 11:34 cp 09/12 11:34 Interpretation: Normal except: CL 108. cp 09/12 10:22 Order name: Tama Screen Profile; Complete Time: 11:34 09/12 10:22 Order name: Strep; Complete Time: 10:56 cp 09/12 10:22 Order name: PT-INR; Complete Time: 11:34 09/12 10:54 Order name: Throat Culture [facility] 09/12 10:22 Order name: IV; Complete Time: 11:20 09/12 10:22 Order name: Urine Test (obtain specimen); Complete Time: 11:20 09/12 10:22 Order name: CT Soft Tissue Neck W/contr; Complete Time: 11:48 09/12 11:50 Interpretation: Report reviewed. 09/12 12:34 Order name: Urinalysis; Complete Time: 13:19 09/12 12:59 Order name: Urine Microscopic Only; Complete Time: 13:19 [facility] 09/12 10:22 Order name: Urine Dipstick-Ancillary (obtain specimen); Complete Time: 11:20 cp Administered Medications: 11:20 Drug: Lortab Liquid 10 ml Route: PO; tw2 11:59 Follow up: Response: No adverse reaction; RASS: Alert and Calm (0) tw2 11:55 Drug: Decadron - Dexamethasone 10 mg Route: IVP; Site: right antecubital; tw2 12:30 Follow up: Response: No adverse reaction tw2 11:58 Drug: Clindamycin 600 mg Route: IVPB; Infused Over: 30 mins; Site: right antecubital; tw2 12:28 Follow up: Response: No adverse reaction; IV Status: Completed infusion; IV Intake: [id number] Disposition: 15:42 Co-signature as Attending Physician, Morro Cespedes MD. ma2 Disposition: 09/12/20 12:55 Discharged to Home. Impression: Left Tonsillar Abscess. - Condition is Stable. - Prescriptions for Clindamycin HCl 300 mg Oral Capsule - take 1 capsule by ORAL route every 6 hours for 10 days; 40 capsule. Tylenol- Codeine #3 300-30 mg Oral Tablet - take 2 tablets by ORAL route every 8-12 hours As needed; 15 tablet. Prednisone 20 mg Oral Tablet - take 2 tablet by ORAL route once daily for 5 days; 10 tablet. - Medication Reconciliation Form, Thank You Letter, Antibiotic Education, Prescription Opioid Use form. - Follow up: Paz Lantigua MD; When: 2 - 3 days; Reason: Recheck today's complaints. - Problem is new. - Symptoms have improved. Signatures: Dispatcher [employer] EDMS Richard Guerra PA PA [id number] Olegario Chirinos PA PA cp Jacqueline Oneill, ROVERTO RN tw2 Morro Cespedes MD MD ma2 Corrections: (The following items were deleted from the chart) 12:55 12:16 09/12/2020 12:16 Transfer ordered to [facility]. Diagnosis is Peritonsillar cp abscess - left. Reason for transfer: Higher level of care. Accepting physician is Doctor. Condition is Stable. Problem is new. Symptoms are unchanged. cp 13:30 12:55 09/12/2020 12:55 Discharged to Home. Impression: Left Tonsillar Abscess. tw2 Condition is Stable. Forms are Medication Reconciliation Form, Thank You Letter, Antibiotic Education, Prescription Opioid Use. Follow up: Paz Lantigua; When: 2 - 3 days; Reason: Recheck today's complaints. Problem is new. Symptoms have improved. cp
--- NOTE | 2020-09-12 12:17 | ER ---
Nurse's Notes [facility] Name: Marah Pierce Age: 24 yrs Sex: Female : 1995 Arrival Date: 09/12/2020 Time: 10:03 Bed 18 Private MD: Diagnosis: Left Tonsillar Abscess Presentation: 09/12 10:12 Chief complaint: Patient states: i am on amox/clav started 4 days ago, i had to take an tw2 ibuprofen this morning, but my tonsils are still swollen and painful, usually they bust by now, i would like the pressure gone away and it drained. Coronavirus screen: At this time, the client does not indicate any symptoms associated with coronavirus-19. Ebola Screen: Patient denies travel to an Ebola-affected area in the 21 days before illness onset. Initial Sepsis Screen: Does the patient meet any 2 criteria? HR > 90 bpm. No. Patient's initial sepsis screen is negative. Does the patient have a suspected source of infection? No. Patient's initial sepsis screen is negative. Risk Assessment: Do you want to hurt yourself or someone else? Patient reports desire/thoughts of hurting themselves or someone else. Provider notified. Onset of symptoms was September 12, 2020. 10:12 Method Of Arrival: Ambulatory tw2 10:12 Acuity: TRES 4 tw2 10:31 Acuity: TRES 3 iw Triage Assessment: 10:14 General: Appears in no apparent distress. slender, well groomed, Behavior is calm, tw2 cooperative, appropriate for age. Pain: Complains of pain in uvula, left aspect of posterior pharynx and right aspect of posterior pharynx. EENT: Reports pain when swallowing. Neuro: Level of Consciousness is awake, alert, obeys commands. Cardiovascular: Patient's skin is warm and dry. Respiratory: Airway is patent Respiratory effort is even, unlabored, Respiratory pattern is regular, symmetrical. Musculoskeletal: Range of motion: intact in all extremities. 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 - Social history:: Smoking status: . Screenin:15 Abuse screen: Denies threats or abuse. Nutritional screening: No deficits noted. tw2 Tuberculosis screening: No symptoms or risk factors identified. Fall Risk None identified. Assessment: 10:15 Reassessment: see triage assessment, provider at bedside at this time. tw2 11:15 Reassessment: Patient appears in no apparent distress at this time. No changes from tw2 previously documented assessment. Patient and/or family updated on plan of care and expected duration. Pain level reassessed. Patient is alert, oriented x 3, equal unlabored respirations, skin warm/dry/pink. 12:15 Reassessment: Patient appears in no apparent distress at this time. No changes from tw2 previously documented assessment. Patient and/or family updated on plan of care and expected duration. Pain level reassessed. Patient is alert, oriented x 3, equal unlabored respirations, skin warm/dry/pink. 13:23 Reassessment: Patient appears in no apparent distress at this time. No changes from tw2 previously documented assessment. Patient and/or family updated on plan of care and expected duration. Pain level reassessed. Patient is alert, oriented x 3, equal unlabored respirations, skin warm/dry/pink. 13:30 Reassessment: Patient appears in no apparent distress at this time. No changes from tw2 previously documented assessment. Patient and/or family updated on plan of care and expected duration. Pain level reassessed. Patient is alert, oriented x 3, equal unlabored respirations, skin warm/dry/pink. Vital Signs: 10:12 BP 131 / 84; Pulse 96; Resp 17; Pulse Ox 99% on R/A; tw2 11:20 Temp 98.3(TE); tw2 12:20 BP 120 / 81; Pulse 79; Resp 17; Pulse Ox 99% on R/A; tw2 13:24 BP 145 / 90; Pulse 92; Resp 17; Pulse Ox 99% on R/A; tw2 ED Course: 10:03 Patient arrived in ED. as 10:08 Olegario Chirinos PA is PHCP. cp 10:08 Morro Cespedes MD is Attending Physician. cp 10:12 Jacqueline Oneill RN is Primary Nurse. tw2 10:13 Triage completed. tw2 10:14 Arm band placed on. tw2 10:15 Bed in low position. Call light in reach. Pulse ox on. NIBP on. tw2 11:30 CT Soft Tissue Neck W/contr In Process Unspecified. EDMS 11:55 Inserted saline lock: 20 gauge in right antecubital area, using aseptic technique. tw2 Blood collected. 12:05 initiated a transfer with Bg from the [facility] Transfer [facility]/. eb 12:[address] Marques the ENT fractionating still operator for [facility] with Olegario MALONE for patient transfer eb consultation. 12:55 Paz Lantigua MD is Referral Physician. cp 13:28 No provider procedures requiring assistance completed. IV discontinued, intact, tw2 bleeding controlled, No redness/swelling at site. Pressure dressing applied. Administered Medications: 11:20 Drug: Lortab Liquid 10 ml Route: PO; tw2 11:59 Follow up: Response: No adverse reaction; RASS: Alert and Calm (0) tw2 11:55 Drug: Decadron - Dexamethasone 10 mg Route: IVP; Site: right antecubital; tw2 12:30 Follow up: Response: No adverse reaction tw2 11:58 Drug: Clindamycin 600 mg Route: IVPB; Infused Over: 30 mins; Site: right antecubital; tw2 12:28 Follow up: Response: No adverse reaction; IV Status: Completed infusion; IV Intake: [id number] Intake: 12:28 IV: 50ml; Total: 50ml. tw2 Outcome: 12:16 ER care complete, transfer ordered by MD. cp 12:55 Discharge ordered by MD. cp 13:29 Discharged to home ambulatory. tw2 13:29 Condition: stable 13:29 Discharge instructions given to patient, Instructed on discharge instructions, follow up and referral plans. no drinking with medication, no driving heavy equipment, medication usage, Demonstrated understanding of instructions, follow-up care, medications, Prescriptions given X 3. 13:30 Patient left the ED. tw2 Signatures: Dispatcher [employer] Nupur Leone Irene, RN Olegario Hayes PA PA cp Wise, Tara, RN RN tw2 Debby Ornelas
[2020-09-12 12:53] LABS: Urine Appearance CLEAR (Clear); Urine Bilirubin NEGATIVE (Negataive); Urine Blood NEGATIVE (Negative); Urine Color YELLOW (Yellow); Urine Glucose NEGATIVE (Negative); Urine Protein 2+ (Negative); Urine Specific Gravity 1.015 (1.005-1.030); Urine Urobilinogen 0.2 mg/dL (0.2-1.0)
[2020-09-12 12:58] LABS: Urine Microscopic Reflex ORDER UMIC
[2020-09-12 13:15] LABS: Urine Bacteria NONE SEEN /HPF (<20); Urine RBC NONE SEEN /HPF (NONE SEEN)
[2020-09-13 02:41] VITALS: O2SAT 99
[2020-09-13 02:42] VITALS: TEMP 98.3
[2020-09-13 02:45] VITALS: BP 145/90
== END 2020-09-12 13:30 | disposition home or self-care (01) ==
LOC: ER 10:02
DX: J36 Peritonsillar abscess (principal); Z88.7 Allergy status to serum and vaccine
CPT/HCPCS: 96365; 87070; 85025; 80048; 36415; 86308; 85610; 87081; 70491; 96375; 99284; Q9967; J1100; 81003; 81015

== ENCOUNTER 2021-11-07 04:57 | Emergency (ER) | payer OTHER ==
--- OUTSIDE RECORDS SUMMARY | 2021-11-07 05:00 | XMS REPORT | Continuity of Care Document ---
:1995 Author Organization [facility] t Address [facility]3 Rojas [address]anchard [address] [place] [address] Care Team Providers Name Role Phone PCP, DOES NOT HAVE A Primary Care Physician Unavailable Anne CHAVARRIA Attending Clinician Unavailable Visit, Nurse Attending Clinician Unavailable Shelly POOLE R Attending Clinician Emeli DRAPER Attending Clinician Unavailable Eddi POOLE, N Attending Clinician DENISE Attending Clinician Unavailable Jesse Velazquez Attending Clinician [phone] Giovanni POOLE Attending Clinician Doctor Unassigned, Name Attending Clinician Unavailable DENISE Admitting Clinician Unavailable Payers Payer Name Policy Type Policy Number Effective Date Expiration Date S lupillo [facility] [id number] 2018 00:00:00 [facility] [id number] 2020 COMMUNITY PLAN - 00:00:00 [facility] (MEDICAID HMO) [facility] [id number] Problems Condition Condition Condition Status Onset Resolution Last Treating Co mments Source Name Details Category Date Date Treatment Clinician Date Seizure Seizure Disease Active Univers 9-17 ity of 00:00: [place] 00 [facility] Tobacco Tobacco Disease Active Univers abuse abuse 2-26 ity of 00:00: [place] 00 [facility] Underweigh Underweigh Disease Active U nivers t t 2- ity of 00:00: [place] 00 [facility] Allergies, Adverse Reactions, Alerts Allergy Allergy Status Severity Reaction(s) Onset Inactive Treating Comm ents Source Name Type Date Date Clinician FLU VAC DRUG Active Swelling Univers QV LIVE 5- ity of 2016 00:00: [place] (2-49YRS 00 Medical ) Branch Flu Vac Propensi Active Swelling Unive rs Qv Live ty to 10-21 ity of 2016 adverse 00:00: [place] (2-49yrs reaction 00 Medica l ) s Branch Social History Social Habit Start Date Stop Date Quantity Comments Source History SDOH University o f Alcohol Frequency [facility] edical Branch History SDOH University o f Alcohol Std Drinks [facility] History SDOH University o f Alcohol Binge [facility] al Branch Exposure to Not sure [place] of SARS-CoV-2 (event) [facility] Alcohol intake 2021-08-06 2021-08-06 Current drinker Unive rsity of 00:00:00 00:00:00 of alcohol [facility] (finding) [place] Alcohol Comment 2021-05-12 2021-05-12 occasional Universit y of 00:00:00 00:00:00 [facility] Cigarettes smoked 2019-08-08 2019-08-08 Univers ity of current (pack per 00:00:00 00:00:00 [facility] ) - Reported Branch Tobacco use and 2019-08-08 2019-08-08 Never used Universit y of exposure 00:00:00 00:00:00 [facility] Tobacco Comment 2017-10-21 2017-10-21 hx of smoking : Uni versity of 00:00:00 00:00:00 6 cigarretes per [facility] dical Branch History of tobacco 2015-10-22 2017-10-19 Cigarette Smoker University of use 00:00:00 00:00:00 [facility] Sex Assigned At [birth year] Universit y of 00:00:00 00:00:00 [facility] Smoking Status Start Date Stop Date Source Current every day smoker 2019-08-08 00:00:00 Uni versity of [facility] Medications Ordered Filled Start Stop Current Ordering Indication Dosage Frequency Signature Comments Components Source Medication Medication Date Date Medication? Clinician (SIG) Name Name medroxyPROG 2020-06- No [id number] 150mg Univers ESTERone 07-12 ity of (DEPO-PROVE 19:30: 18:29 [place] RA) 00 :00 Medical injection Branch 150 mg medroxyPROG 2020-06- No [id number] 150mg 150 mg, Univers ESTERone 07-12 Intramuscu ity of (DEPO-PROVE 19:30: 18:29 lar, [place] RA) 00 :00 [id number], Medical injection 4 doses, Branch 150 mg First dose on Tue05/12/21 at 1330, Last dose on Tue01/19/22 at 1330, Routine medroxyPROG 2020-06- No [id number] 150mg Univers ESTERone 07-12 ity of (DEPO-PROVE 19:30: 18:29 [place] RA) 00 :00 Medical injection Branch 150 mg medroxyPROG 2020-06- No [id number] 150mg 150 mg, Univers ESTERone 07-12 Intramuscu ity of (DEPO-PROVE 19:30: 18:29 lar, [place] RA) 00 :00 [id number], Medical injection 4 doses, Branch 150 mg First dose on Tue05/12/21 at 1330, Last dose on Tue01/19/22 at 1330, Routine ubrogepant 2020-06 Yes Ubrelvy 50 U nivers (UBRELVY) 1-30 mg tablet ity o f 50 mg Tab 13:08: Take 1 [place] 35 tablet Medical every day Branch by oral route. ubrogepant 2020-06 Yes Ubrelvy 50 U nivers (UBRELVY) 1-30 mg tablet ity o f 50 mg Tab 13:08: Take 1 [place] 35 tablet Medical every day Branch by oral route. medroxyPROG 2020- No 1mL 1 mL. Univ ers ESTERone 11-17 ity of (DEPO-PROVE 00:00: 00:00 [place] RA) 150 00 :00 Medical mg/mL Branch injection Immunizations Ordered Filled Immunization Date Status Comments [facility] e Immunization Name Name HPV9 2021-05-12 Completed University of 00:00:00 [place] [facility] HPV9 2021-05-12 Completed University of 00:00:00 [place] [facility] HPV9 2020-04-17 Completed University of 00:00:00 [place] [facility] HPV9 2020-04-17 Completed University of 00:00:00 [place] [facility] TDAP 2019-12-20 Completed University of 00:00:00 [place] [facility] TDAP 2019-12-20 Completed University of 00:00:00 [place] [facility] HPV9 2018-05-26 Completed University of 00:00:00 [place] [facility] HPV9 2018-05-26 Completed University of 00:00:00 [facility] Vital Signs Vital Name Observation Time Observation Value Comments Source Systolic blood 2021-08-06 16:39:00 112 mm[Hg] Univer sity of pressure [facility] Diastolic blood 2021-08-06 16:39:00 78 mm[Hg] Unive rsity of [facility] Heart rate 2021-08-06 16:36:00 87 /min [facility] Body temperature 2021-08-06 16:36:00 37 Frieda [facility] Respiratory rate 2021-08-06 16:36:00 18 /min [facility] Body height 2021-08-06 16:36:00 149.9 cm [facility] Body weight 2021-08-06 16:36:00 36.197 kg [facility] BMI 2021-08-06 16:36:00 16.12 kg/m2 [facility] Systolic blood 2021-05-12 19:05:00 142 mm[Hg] Univer sity of pressure [facility] Branch Diastolic blood 2021-05-12 19:05:00 94 mm[Hg] Unive rsity of pressure [facility] Heart rate 2021-05-12 19:04:00 94 /min [facility] Body temperature 2021-05-12 19:04:00 37.11 Frieda [facility] Respiratory rate 2021-05-12 19:04:00 16 /min [facility] Body height 2021-05-12 19:04:00 149.9 cm [facility] Body weight 2021-05-12 19:04:00 35.743 kg [facility] BMI 2021-05-12 19:04:00 15.92 kg/m2 [facility] Procedures Procedure Date / Time Performed Performing Clinician Teddy e GARDASIL 9 (HPV 9V) 2021-05-12 19:19:17 Gwendolyn Montague [facility] Encounters Start End Encounter Admission Attending Care Care Encounter Source Date/Time Date/Time Type Type Clinicians Facility Department ID 2021-10-29 2021-10-29 Outpatient R [facility] [id number] Univers 10:30:00 10:30:00 [id number] [facility] 2021-10-29 2021-10-29 Outpatient R DEON [facility] [id number] Univers 10:30:00 10:30:00 [place] kincaid o f [facility] 2021-08-06 2021-08-06 Nurse Visit, KwameRmjamie Nurse [facility] [id number] Univers 10:30:00 10:45:35 Visit Jesus Draper [place] [id number] ity [facility] [id number] [place] as MATERNAL [id number] Med ical & CHILD [address] [place] [address] 2021-08-06 2021-08-06 Outpatient R [facility] [id number] Univers 10:30:00 10:30:00 [id number] [facility] 2021-08-06 2021-08-06 Outpatient R SHELLY [facility] [id number] Univers 10:30:00 10:30:00 JESUS kincaid o f [facility] 2021-05-12 2021-05-12 Office Eddi [facility] [id number] Univers 12:55:58 13:37:16 Visit Gwendolyn Perez [place] [id number] it y [facility] [id number] [place] MATERNAL [id number] Med ical & CHILD [address] [place] [address] 2021-03-23 2021-03-23 Outpatient ERICKSON_R [facility] [address] [facility] 02:45:00 02:45:00 [facility] 2021-03-23 2021-03-23 Outpatient Velazquez, [facility] [id number] 00:00:00 00:00:00 Rupesh [id number] Jesse [id number] 2021-03-09 2021-03-09 Outpatient ERICKSON_R [facility] [id number] [facility] 12:32:00 12:32:00 [id number] [facility] 2021-03-09 2021-03-09 Outpatient Velazquez, [facility] [id number] 00:00:00 00:00:00 Rupesh [id number] Jesse [id number] 2021-02-27 Outpatient ERICKSON_R [facility] [address] [facility] 11:46:00 11:46:00 [id number] [facility] 2021-02-27 2021-02-27 Outpatient Velazquez [facility] [id number] 00:00:00 00:00:00 Rupesh [id number] Jesse [id number] 2021-02-12 2021-02-12 Outpatient ERICKSON_R [facility] [address] [facility] 09:58:00 09:58:00 [id number] [facility] 2021-02-12 2021-02-12 Outpatient Velazquez [facility] [id number] 00:00:00 00:00:00 Rupesh [id number] Jesse [id number] 2020-09-09 Emergency Davila, [facility] [id number] 18:38:00 20:41:00 Tash Emery [id number] [place] [id number] [place] [id number] 2020-09-09 2020-09-09 Orders Doctor KARUNA [id number] 00:00:00 00:00:00 Only Unassigned, WHIT [id number] [place] [facility] [id number] 2020-09-01 2020-09-01 Nurse Visit, [facility] [id number] 13:14:18 13:29:18 Visit Ang-Rmchp [place] [id number] Nurse [facility] [id number] MATERNAL [id number] & CHILD 107 [facility] 2020-09-01 2020-09-01 Orders Doctor BECKMAN [id number] 00:00:00 00:00:00 Only Unassigned, [id number] [facility] [id number] 2020-06-27 2020-06-27 Outpatient ERICKSON_R [facility] [address] [facility] 11:57:00 11:57:00 [id number] [facility] 2020-06-24 2020-06-24 Outpatient ERICKSON_R [facility] [id number] [facility] 12:55:00 12:55:00 [id number] [facility] 2020-06-24 2020-06-24 Outpatient Velazquez, [facility] [id number] 00:00:00 00:00:00 Rupesh [id number] Jesse [id number] 2020-06-03 2020-06-03 Nurse Visit, [facility] [id number] 10:00:12 10:31:51 Visit Ang-Rmchp [place] [id number] Nurse [facility] [id number] MATERNAL [id number] & CHILD 107 [facility] 2020-06-03 2020-06-03 Telephone Shelly [facility] [id number] 00:00:00 00:00:00 Jesus Sainz [place] [id number] [facility] [id number] MATERNAL [id number] & CHILD 107 [facility] 2020-04-17 2020-04-17 Office GILBERT Draper [id number] 13:18:15 13:58:29 Visit Jesus Sainz [place] [id number] [facility] [id number] MATERNAL [id number] & CHILD 107 [facility] Results This patient has no known results.
[2021-11-07] MEDS ORDERED: dexAMETHasone 10 MG/ML VIAL ONE (09:33)
[2021-11-07] MEDS ORDERED: CLINDAMYCIN 900MG/D5W 900 MG/50 ML IVPB IV ONE (09:34)
[2021-11-07] MEDS ORDERED: NA CHLORIDE 0.9% 1,000 ML ONE (09:34)
[2021-11-07 10:02] LABS: Absolute Lymphocytes (CBC) 1.7 K/uL (0.7-4.9); Hematocrit 43.2 % (36.0-45.0); MPV 9.5 fL (7.6-11.3); RBC Red Blood Cell Count 5.28 M/uL (3.86-4.86)
[2021-11-07 10:21] LABS: Potassium 3.9 mmol/L (3.5-5.1)
--- NOTE | 2021-11-07 10:50 | EDPHYS ---
Physician Documentation [facility] Name: Marah Pierce Age: 25 yrs Sex: Female : 1995 Arrival Date: 11/07/2021 Time: 05:01 Bed 5 Private MD: ED Physician Josse Peres HPI: 11/07 08:02 This 25 yrs old Female presents to ER via Ambulatory with complaints of Abscess. kdr 08:03 The patient presents with sore throat, dysphagia, of both solids and liquids. The kdr patient describes throat pain as intermittent, scratchy. Onset: The symptoms/episode began/occurred gradually. 08:04 Severity of symptoms: At their worst the symptoms were mild, moderate, just prior to kdr arrival, in the emergency department the symptoms are unchanged. Modifying factors: The symptoms are alleviated by nothing, the symptoms are aggravated by swallowing, Patient's oral intake status: good. Associated signs and symptoms: The patient has no apparent associated signs or symptoms. The patient has experienced similar episodes in the past, a few times. The patient has not recently seen a physician. [employer]: 05:22 LMP N/A - control method ll3 Historical: - Allergies: 05:22 flu shot; ll3 - Home Meds: 05:22 None [Active]; ll3 - PMHx: 05:22 None; ll3 - PSHx: 05:22 None; ll3 - Immunization history:: Client reports having NOT received the Covid vaccine. - Social history:: Smoking status: Patient reports the use of cigarette tobacco products, smokes one-half pack cigarettes per day. ROS: 08:04 Constitutional: Negative for fever, chills, and weight loss, Eyes: Negative for injury, kdr pain, redness, and discharge, Neck: Negative for injury, pain, and swelling, Cardiovascular: Negative for chest pain, palpitations, and edema, Respiratory: Negative for shortness of breath, cough, wheezing, and pleuritic chest pain, Abdomen/GI: Negative for abdominal pain, nausea, vomiting, diarrhea, and constipation, Back: Negative for injury and pain, : Negative for injury, bleeding, discharge, and swelling, MS/Extremity: Negative for injury and deformity, Skin: Negative for injury, rash, and discoloration, Neuro: Negative for headache, weakness, numbness, tingling, and seizure activity. Psych: Negative for depression, anxiety, suicide ideation, homicidal ideation, and hallucinations, Allergy/Immunology: Negative for hives, rash, and allergies, Endocrine: Negative for neck swelling, polydipsia, polyuria, polyphagia, and marked weight changes, Hematologic/Lymphatic: Negative for swollen nodes, abnormal bleeding, and unusual bruising. Exam: 08:04 Constitutional: This is a well developed, well nourished patient who is awake, alert, kdr and in no acute distress. Head/Face: Normocephalic, atraumatic. Eyes: Pupils equal round and reactive to light, extra-ocular motions intact. Lids and lashes normal. Conjunctiva and sclera are non-icteric and not injected. Cornea within normal limits. Periorbital areas with no swelling, redness, or edema. Neck: Trachea midline, no thyromegaly or masses palpated, and no cervical lymphadenopathy. Supple, full range of motion without nuchal rigidity, or vertebral point tenderness. No Meningismus. Chest/axilla: Normal chest wall appearance and motion. Nontender with no deformity. No lesions are appreciated. Cardiovascular: Regular rate and rhythm with a normal S1 and S2. No gallops, murmurs, or rubs. Normal PMI, no JVD. No pulse deficits. 08:04 ENT: Mouth: is normal. Vital Signs: 05:19 BP 117 / 87; Pulse 79; Resp 16; Temp 98.6(TE); Pulse Ox 100% on R/A; Weight 36.29 kg ll3 (R); Height 4 ft. 11 in. (149.86 cm) (R); Pain 8/10; 08:32 BP 106 / 58; Pulse 69; Resp 16; Pulse Ox 100% ; bp 10:28 BP 126 / 72; Pulse 77; Resp 16; Pulse Ox 100% ; bp 11:30 BP 121 / 65; Pulse 71; Resp 16; Pulse Ox 100% ; bp 05:19 Body Mass Index 16.16 (36.29 kg, 149.86 cm) ll3 MDM: 10:26 Data reviewed: vital signs, nurses notes. ED course: Exam the patient has swelling to kdr her left tonsillar pillar. The uvula is basically midline. The patient however states that she is drooling on herself and is unable to open her mouth completely (trismus) we will consult ENT for evaluation and possible drainage of peritonsillar abscess.. 10:49 Patient medically screened. kdr 11/07 07:09 Order name: Strep; Complete Time: 08:01 kdr 11/07 07:54 Order name: Throat Culture EDKY 11/07 09:12 Order name: CBC with Diff; Complete Time: 10:48 bp 11/07 09:12 Order name: BMP; Complete Time: 10:48 bp 11/07 08:04 Order name: PO challenge; Complete Time: 08:32 kdr Administered Medications: 09:20 Drug: Decadron - Dexamethasone 10 mg Route: IVP; Site: right antecubital; bp 10:49 Follow up: Response: No adverse reaction bp 09:20 Drug: Clindamycin 900 mg Route: IVPB; Infused Over: 30 mins; Site: right antecubital; bp 11:44 Follow up: IV Status: Completed infusion; IV Intake: 100ml bp 09:20 Drug: NS 0.9% 1000 ml Route: IV; Rate: 1 bolus; Site: right antecubital; bp 11:44 Follow up: IV Status: Completed infusion; IV Intake: 1000ml bp 11:00 Drug: Amoxicillin 500 mg Route: PO; bp 11:42 Follow up: Response: No adverse reaction bp Disposition Summary: 11/07/21 10:49 Discharge Ordered Location: Home kdr Problem: an acute exacerbation kdr Symptoms: have improved kdr Condition: Stable kdr Diagnosis - Peritonsillar abscess kdr Followup: kdr - With: Paz Lantigua MD - When: 2 - 3 days - Reason: If symptoms return, Further diagnostic work-up, Recheck today's complaints, Continuance of care, Re-evaluation by your physician Discharge Instructions: - Peritonsillar Abscess kdr - Discharge Summary Sheet kd3 Forms: - Medication Reconciliation Form kdr - SBAR form kd3 - Thank You Letter kdr - Antibiotic Education kdr Prescriptions: - Amoxicillin 500 mg Oral Capsule - take 1 capsule by ORAL route every 8 hours for 10 days; 30 tablet; Refills: 0, kdr Product Selection Permitted - Ibuprofen 600 mg Oral Tablet - take 1 tablet by ORAL route every 6 hours As needed take with food; 30 tablet; kdr Refills: 0, Product Selection Permitted Signatures: Dispatcher [employer] [facility] Josse Peres MD MD Rasheed Micheals, RN RN bp Tess Pierce, RN RN ll3
--- NOTE | 2021-11-07 10:50 | ER ---
Nurse's Notes [facility] [place] Name: Marah Pierce Age: 25 yrs Sex: Female : 1995 Arrival Date: 11/07/2021 Time: 05:01 Bed 5 Private MD: Diagnosis: Peritonsillar abscess Presentation: 11/07 05:19 Chief complaint: Patient states: "I shared a cigarette with my friend and she didn't ll3 tell me she was sick, I think I have whatever she had", c/o pain 8/10 when swallowing or speaking. Coronavirus screen: Vaccine status: Patient reports being unvaccinated. sore throat. Ebola Screen: No symptoms or risks identified at this time. Initial Sepsis Screen: Does the patient meet any 2 criteria? No. Patient's initial sepsis screen is negative. Does the patient have a suspected source of infection? No. Patient's initial sepsis screen is negative. Risk Assessment: Do you want to hurt yourself or someone else? Patient reports no desire to harm self or others. Onset of symptoms was November 05, 2021. Care prior to arrival: Medication(s) given: Tylenol, 1000 mg. 05:19 Method Of Arrival: Ambulatory ll3 05:19 Acuity: TRES 3 ll3 Triage Assessment: 05:22 General: Appears uncomfortable, Behavior is calm, cooperative. Pain: Complains of pain ll3 in left buccal mucosa and right buccal mucosa Pain currently is 8 out of 10 on a pain scale. Pain began 2-3 days ago. Is continuous, Aggravated by eating, drinking. EENT: Reports pain when swallowing Pain is 8 out of 10 on a pain scale. Neuro: No deficits noted. Respiratory: Respiratory effort is even, unlabored, Respiratory pattern is regular, symmetrical. Respiratory: Denies cough. Derm: Skin is pink, warm \\T\\ dry. 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 - Social history:: Smoking status: Patient reports the use of cigarette tobacco products, smokes one-half pack cigarettes per day. Screenin:26 Abuse screen: Denies threats or abuse. Nutritional screening: No deficits noted. ll3 Tuberculosis screening: No symptoms or risk factors identified. 08:32 Fall Risk None identified. bp Assessment: 05:26 General: See triage assessment. ll3 07:00 Reassessment: RECD REPORT FROM NO LAYNE. 25YO WF P/W SORE THROAT. bp 08:32 Reassessment: PO CHALLENGE SUCCESSFUL. bp 10:28 Reassessment: ENT DR. MENDOZA AT B/S. bp 11:42 Reassessment: PT D/C HOME AMBULATORY, DX WITH PERITONSILLAR ABSCESS. bp Vital Signs: 05:19 BP 117 / 87; Pulse 79; Resp 16; Temp 98.6(TE); Pulse Ox 100% on R/A; Weight 36.29 kg ll3 (R); Height 4 ft. 11 in. (149.86 cm) (R); Pain 8/10; 08:32 BP 106 / 58; Pulse 69; Resp 16; Pulse Ox 100% ; bp 10:28 BP 126 / 72; Pulse 77; Resp 16; Pulse Ox 100% ; bp 11:30 BP 121 / 65; Pulse 71; Resp 16; Pulse Ox 100% ; bp 05:19 Body Mass Index 16.16 (36.29 kg, 149.86 cm) ll3 ED Course: 05:01 Patient arrived in ED. bp1 05:19 No Pierce, RN is Primary Nurse. ll3 05:22 Triage completed. ll3 05:22 Arm band placed on Patient placed in an exam room, on a stretcher. ll3 05:26 Patient has correct armband on for positive identification. Bed in low position. Call 3 light in reach. Side rails up X 1. 05:43 Royal Chavez MD is Attending Physician. mh7 07:00 Strep swab sent to lab. kj1 07:01 Josse Peres MD is Attending Physician. kdr 07:14 Primary Nurse role handed off by No Pierce, RN bp 07:14 Rasheed Mckinney, ROVERTO is Primary Nurse. bp 09:31 Door closed. Noise minimized. Warm blanket given. mb7 09:31 Inserted saline lock: 20 gauge in right antecubital area, using aseptic technique. mb7 Blood collected. 10:48 Paz Mendoza MD is Referral Physician. kdr 11:30 No provider procedures requiring assistance completed. IV discontinued, intact, bp bleeding controlled, No redness/swelling at site. Pressure dressing applied. Administered Medications: 09:20 Drug: Decadron - Dexamethasone 10 mg Route: IVP; Site: right antecubital; bp 10:49 Follow up: Response: No adverse reaction bp 09:20 Drug: Clindamycin 900 mg Route: IVPB; Infused Over: 30 mins; Site: right antecubital; bp 11:44 Follow up: IV Status: Completed infusion; IV Intake: 100ml bp 09:20 Drug: NS 0.9% 1000 ml Route: IV; Rate: 1 bolus; Site: right antecubital; bp 11:44 Follow up: IV Status: Completed infusion; IV Intake: 1000ml bp 11:00 Drug: Amoxicillin 500 mg Route: PO; bp 11:42 Follow up: Response: No adverse reaction bp Medication: 08:32 VIS not applicable for this client. bp Intake: 11:44 IV: 100ml; Total: 100ml. bp 11:44 IV: 1000ml; Total: 1100ml. bp Outcome: 10:49 Discharge ordered by MD. kdr 11:30 Discharged to home ambulatory. bp 11:30 Condition: stable 11:30 Discharge instructions given to patient, Instructed on discharge instructions, follow up and referral plans. medication usage, Demonstrated understanding of instructions, follow-up care, medications, Prescriptions given X 2. 11:44 Patient left the ED. bp Signatures: Josse Peres MD MD kdr Peltier, Brian RN RN Glory Overton1 Re Guan bp1 Royal Chavez MD MD 7 No Pierce RN RN ll3 Nava Llamas mb7
--- NOTE | 2021-11-07 11:05 | P.CNS ---
Date of Consult: 11/07/21 Reason for consultation: Peritonsillar abscess History of present illness: 25-year-old white female presents with a 2-day history of left sore throat with mild left ear pain associated with odynophagia, mild difficulty with oral intake, and reported some drooling to the emergency room. The patient reported some mild fever and mild sore throat about a week prior but did not take any eexf-fle-qgisprx or prescription medications at that time. In regards to her acute sore throat, she has not taken any txjb-swe-ugfteht or prescription medications. The patient reports that she has had sore throats 2-3 times per year for several years. The patient reports 3 or 4 prior episodes of peritonsillar abscess, always occurring on the left side. She reports prior needle aspiration, prior incision with a scalpel, and prior treatment with medications alone. She has been treated at the [facility] in [place], but has also been seen at facilities in [place], and in [place]. Her first peritonsillar abscess was 3 to 4 years ago. Her last episode was approximately 1 year ago. She has been told by multiple providers to consider tonsillectomy but has not had the financial resources to proceed with surgical intervention. Past medical history: None Past surgical history: Childbirth Current medications: Wuut-nva-vzjvovv nonsteroidal anti-inflammatory medication Allergies: Flu shot Social history: Positive for tobacco/vape, daily alcohol. Denies illicit drugs. 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 Physical exam: Patient's vital signs are stable as documented by the emergency room. The patient is in no acute distress. She is alert and oriented. Her voice has a normal quality without a muffled or hot potato voice. Her face is symmetric and atraumatic. Pupils are equal round and reactive, sclera are normal, conjunctive are normal. External nose and nares are patent. Lips, gingiva, floor of mouth, and tongue are unremarkable. The patient has mild trismus. The oropharynx demonstrates mild swelling of the left soft palate, the uvula appears midline, the left tonsil is erythematous. The patient is tolerating her own secretions easily. There is no clinical evidence of airway distress. The patient's overall affect does not seem consistent with severe pain. Her neck is supple with mild tender lymphadenopathy. Review of data: November 29, 2018: Emergency visit for 5-day history of left peritonsillar abscess. Patient treated with IV dexamethasone, clindamycin, and Toradol and was discharged home with plan to refer to ENT/Grzegorz in 1 day. September 12, 2020: Emergency room visit for left peritonsillar abscess and sore throat. Patient reported a prior evaluation at [place] 4 days earlier treated with amoxicillin but experienced worsening symptoms. CT at that time demonstrated left 2.5 cm peritonsillar abscess. Phone consultation with Dr. Nicholson of otolaryngology at [facility] recommended switching to clindamycin and treating with oral steroids. Record indicates possible plan for transfer which was canceled. The patient was discharged home with recommendations to follow-up with ENT/Lantigua in [address] Lantigua's private practice medical records do not have any record of the patient following through with recommended follow-up. No laboratory data or imaging is associated with today's visit Assessment: Left peritonsillar abscess, recurrent with associated intermittent acute tonsillitis Plan of care: The patient is in no acute distress and has previously responded to medical therapy alone. She is motivated to proceed with medical therapy only at this time. I discussed treatment options including medical therapy, needle aspiration of her abscess, incision and drainage of the abscess under local or general anesthetic, or tonsillectomy. Based on the recurrent nature of her abscess I strongly recommended she can consider tonsillectomy at some point in the future to prevent further recurrences of her abscesses. If her symptoms worsen or do not resolve over the next several days with antibiotics and steroids, I recommend she return to the emergency room for more invasive treatment. She expressed understanding.
[2021-11-07] MEDS ORDERED: AMOXICILLIN TRIHYDR 250 MG CAP ONE (11:08)
[2021-11-07 11:48] VITALS: TEMP 98.6; O2SAT 100
[2021-11-07 11:51] VITALS: BP 121/65
== END 2021-11-07 11:44 | disposition home or self-care (01) ==
LOC: ER 04:57
DX: J36 Peritonsillar abscess (principal); Z88.7 Allergy status to serum and vaccine; Z72.0 Tobacco use
CPT/HCPCS: 96365; 87070; 85025; 80048; 36415; 87081; 96375; 99284; 96366; J1100; J7030

== ENCOUNTER 2023-01-15 00:43 | Emergency (ER) | payer OTHER ==
--- OUTSIDE RECORDS SUMMARY | 2023-01-15 00:48 | XMS REPORT | Continuity of Care Document ---
:1995 Author Organization [facility] t Address [address] [place] [address] Care Team Providers Name Role Phone PCP, PATIENT DOES NOT HAVE A Primary Care Physician Unavaila AUSTIN Crocker Attending Clinician Unavailable Visit, [facility] Nurse Attending Clinician Unavailable Jesus Omalley Attending Clinician JESUS BRAVO Attending Clinician Unavailable AIDA PANIAGUA Attending Clinician Unavailable Aida Keith Attending Clinician DENISE Attending Clinician Unavailable Rupesh Velazquez Attending Clinician [phone] Tash Hogan Attending Clinician Doctor Unassigned, [place] Attending Clinician Unavailable Dio CALVOCNP, Austin Anne Attending Clinician [phone] Danielle BELLE, Piper Attending Clinician Danisha POOLE, Veronika Attending Clinician Lab, Adc Fam Pob I Attending Clinician Unavailable Ultrasound, Ang-Mfm Attending Clinician Unavailable Newton Braga MD Attending Clinician Faculty, Marcelo Corado Mfm Attending Clinician Unavailable Cecil BELLE, Velasquez Buckner Attending Clinician Efra BELLE, Sarah Singh Attending Clinician Cony POOLE, Kade Giles Attending Clinician KADE LEE Attending Clinician Unavailable Tanesha Thurston MD Attending Clinician TANESHA THURSTON Attending Clinician Unavailable PIPER SANTOS Admitting Clinician Unavailable CHRISON_Emeli Admitting Clinician Unavailable Piper Santos MD Admitting Clinician Payers Payer Name Policy Type Policy Number Effective Date Expiration Date S lupillo [facility] [id number] 2018 00:00:00 [facility] [id number] 2020 COMMUNITY PLAN - 00:00:00 [facility] (MEDICAID HMO) [facility] [id number] MEDICAID OF [place] [id number] 2017 00:00:00 Problems Condition Condition Condition Status Onset Resolution Last Treating Co mments Source Name Details Category Date Date Treatment Clinician Date Seizure Seizure Problem Active [place] 02-27 Communi 00:00: ty [facility]osp[facility] Clinics Headache Headache Problem Active [place] 02-27 Communi 00:00: Hospita l Clinics Low blood Low Blood Problem Active [place] pressure Pressure 02-12 Commun i 00:00: Hospita l Clinics [facility] Problem Active S weeny t t 02-12 Communi 00:00: Hospita l Clinics Tobacco Tobacco Disease Active Univers abuse abuse 2- ity of 00:00: [place] 00 Medical Branch Underweigh Underweigh Disease Active U nivers t t 08-08 ity of 00:00: [place] 00 Medical Branch Allergies, Adverse Reactions, Alerts Allergy Allergy Status Severity Reaction(s) Onset Inactive Treating Comm ents Source Name Type Date Date Clinician FLU VAC DRUG Active Swelling Univers QV LIVE 10-21 it2016 00:00: [place] (2-49YRS 00 Medical ) Branch Flu Vac Propensi Active Swelling Unive rs Qv Live ty to 10-21 ity 2016 adverse 00:00: [place] (2-49yrs reaction 00 Medica l ) s Branch Social History Social Habit Start Date Stop Date Quantity Comments Source History SDOH University o f Alcohol Frequency [facility] Branch History SDOH University o f Alcohol Std Drinks [facility] Branch History [facility] University o f Alcohol Binge [facility] al Branch Exposure to Not sure [place] of SARS-CoV-2 (event) [facility] Alcohol intake 2021-08-06 2021-08-06 Current drinker Unive rsity of 00:00:00 00:00:00 of alcohol [facility] (finding) [place] Alcohol Comment 2021-05-12 2021-05-12 occasional Universit y of 00:00:00 00:00:00 [facility] Cigarettes smoked 2019-08-08 2019-08-08 Univers ity of current (pack per 00:00:00 00:00:00 [facility] ) - Reported Branch Tobacco use and 2019-08-08 2019-08-08 Never used Universit y of exposure 00:00:00 00:00:00 [facility] Tobacco Comment 2017-10-21 2017-10-21 hx of smoking : 6 Un iversity of 00:00:00 00:00:00 cigarretes per [facility] Branch History of tobacco 2015-10-22 2017-10-19 Cigarette Smoker University of use 00:00:00 00:00:00 [facility] Sex Assigned At [birth year] Universit y of 00:00:00 00:00:00 [facility] Smoking Status Start Date Stop Date Source Heavy Tobacco Smoker [facility] Current every day smoker 2019-08-08 00:00:00 Uni versity of [facility] Medications Ordered Filled Start Stop Current Ordering Indication Dosage Frequency Signature Comments Components Source Medication Medication Date Date Medication? Clinician (SIG) Name Name medroxyPROG 2020-06- No [id number] 150mg Univers ESTERone 07-12 ity of (DEPO-PROVE 19:30: 18:29 [place] RA) 00 :00 Medical injection Branch 150 mg medroxyPROG 2020-06- No [id number] 150mg 150 mg, Univers ESTERone 07-12 Intramuscu ity of (DEPO-PROVE 19:30: 18:29 lar, [place] RA) 00 :00 [id number], Medical injection 4 doses, Branch 150 mg First dose on Tue05/12/21 at 1330, Last dose on Tue01/19/22 at 1330, Routine medroxyPROG 2020-06- No [id number] 150mg Univers ESTERone 07-12 ity of (DEPO-PROVE 19:30: 18:29 [place] RA) 00 :00 Medical injection Branch 150 mg medroxyPROG 2020-06- No [id number] 150mg 150 mg, Univers ESTERone 07-12 Intramuscu ity of (DEPO-PROVE 19:30: 18:29 [facility], [place] RA) 00 :00 [id number], Medical injection 4 doses, Branch 150 mg [...] Medical every day Branch by oral route. [employer] [facility] Technician [employer] Technician No 1mL Depo-Prove [place] a 150 mg/mL a 150 mg/mL 11-17 150 Communi intramuscul intramuscul 00:00: mg/mL ty ar ar 00 intramuscu Hospita suspension suspension lar l Inject 1 mL Inject 1 mL suspension Clinics every 3 every 3 Inject 1 months by months by mL every 3 intramuscul intramuscul months by ar route. ar route. intramuscu lar route. [employer] Technician [employer] [facility] Technician No 1mL Depo-Prove [place] a 150 mg/mL a 150 mg/mL 11-17 ra 150 Communi intramuscul intramuscul 00:00: mg/mL ty ar ar 00 intramuscu Hospita suspension suspension lar l Inject 1 mL Inject 1 mL suspension Clinics every 3 every 3 Inject 1 months by months by mL every 3 intramuscul intramuscul months by ar route. ar route. intramuscu lar route. [employer] [facility] Technician [employer] [facility] Technician No 1mL Depo-Prove [place] a 150 mg/mL a 150 mg/mL 11-17 ra 150 Communi intramuscul intramuscul 00:00: mg/mL ty ar ar 00 intramuscu Hospita suspension suspension lar l Inject 1 mL Inject 1 mL suspension Clinics every 3 every 3 Inject 1 months by months by mL every 3 intramuscul intramuscul months by ar route. ar route. intramuscu lar route. [employer] [facility] Technician [employer] [facility] Technician No 1mL Depo-Prove [place] a 150 mg/mL a 150 mg/mL 11-17 ra 150 Communi intramuscul intramuscul 00:00: mg/mL ty ar ar 00 intramuscu Hospita suspension suspension lar l Inject 1 mL Inject 1 mL suspension Clinics every 3 every 3 Inject 1 months by months by mL every 3 intramuscul intramuscul months by ar route. ar route. intramuscu lar route. medroxyPROG No 1mL 1 mL. [facility] ESTERone 11-17 ity of (DEPO-PROVE 00:00: 00:00 [place] RA) 150 00 :00 Medical mg/mL Branch injection azithromyci azithromyci No azithromyc [place] n 500 mg n 500 mg in 500 mg Co mmuni tablet tablet tablet [facility] Clinics ferrous ferrous No ferrous [place] sulfate 325 sulfate 325 sulfate Communi mg (65 mg mg (65 mg 325 mg (65 ty iron) iron) mg iron) [facility] tablet TAKE tablet l 1 TABLET BY 1 TABLET BY TAKE 1 Clinics MOUTH TWICE MOUTH TWICE TABLET BY DAILY DAILY MOUTH TWICE DAILY ibuprofen ibuprofen No ibuprofen [place] 600 mg 600 mg 600 mg Communi tablet TAKE tablet TAKE tablet ty 1 TABLET BY 1 TABLET BY TAKE 1 Hospita MOUTH EVERY MOUTH EVERY TABLET BY l 6 HOURS 6 HOURS MOUTH Cl inics NEEDED FOR NEEDED FOR EVERY 6 PAIN (SCALE PAIN (SCALE HOURS 4 6) 4 6) NEEDED FOR PAIN (SCALE 4 6) nitrofurant nitrofurant No nitrofuran [place] oin oin toin Communi monohydrate monohydrate monohydrat ty /macrocryst /macrocryst e/macrocry Hospita als 100 mg als 100 mg stals 100 l capsule capsule mg capsule Cli nics TAKE 1 TAKE 1 TAKE 1 CAPSULE BY CAPSULE BY CAPSULE BY MOUTH EVERY MOUTH EVERY MOUTH 12 HOURS 12 HOURS EVERY 12 FOR 10 DAYS FOR 10 DAYS HOURS FOR 10 DAYS promethazin promethazin No promethazi [place] e 25 mg e 25 mg ne 25 mg Commu ni tablet TAKE tablet TAKE tablet ty 1 TABLET BY 1 TABLET BY TAKE 1 Hospita MOUTH EVERY MOUTH EVERY TABLET BY l 4 HOURS 4 HOURS MOUTH Cl inics NEEDED FOR NEEDED FOR EVERY 4 NAUSEA AND NAUSEA AND HOURS VOMITING VOMITING NEEDED FOR NAUSEA AND VOMITING Select-OB + Select-OB + No Select-OB [place] DHA 29 mg DHA 29 mg + DHA 29 C ommuni iron-1 iron-1 mg iron-1 ty mg-250 mg mg-250 mg mg-250 mg Hospita oral pack oral pack oral pack l TAKE 1 TAKE 1 TAKE 1 Clinics PACKET BY PACKET BY PACKET BY MOUTH ONCE MOUTH ONCE MOUTH ONCE DAILY (1 DAILY (1 DAILY (1 CAPSULE 1 CAPSULE 1 CAPSULE 1 TABLET) TABLET) TABLET) Ubrelvy 100 Ubrelvy 100 No 1 Q1D Ubrelvy [place] mg tablet mg tablet 100 mg Com rajeev Take 1 Take 1 tablet ty tablet tablet Take 1 Hospita every day every day tablet l by oral by oral every day Clin ics route as route as by oral needed. needed. route as needed. Ubrelvy 50 Ubrelvy 50 No 1 Q1D Ubrelvy 50 [place] mg tablet mg tablet mg tablet Communi Take 1 Take 1 Take 1 ty tablet tablet tablet Hospita every day every day every day l by oral by oral by oral Clinic s route. route. route. Ubrelvy 50 Ubrelvy 50 No 1 Q1D Ubrelvy 50 [place] mg tablet mg tablet mg tablet Communi Take 1 Take 1 Take 1 ty tablet tablet tablet Hospita every day every day every day l by oral by oral by oral Clinic s route. route. route. Immunizations Ordered Filled Immunization Date Status Comments [facility] e Immunization Name Name [facility] 2021-05-12 Completed University of 00:00: [facility]9 2021-05-12 Completed University of 00:00:00 [facility] HPV9 2020-04-17 Completed University of 00:00: [facility] HPV9 2020-04-17 Completed University of 00:00: [facility] TDAP 2019-12-20 Completed University of 00:00: [facility] TDAP 2019-12-20 Completed University of 00:00:00 [facility]9 2018-05-26 Completed University of 00:00: [facility]9 2018-05-26 Completed University of 00:00:00 [facility] Vital Signs Vital Name Observation Time Observation Value Comments Source Systolic blood 2021-08-06 16:39:00 112 mm[Hg] Univer sity of [facility] Diastolic blood 2021-08-06 16:39:00 78 mm[Hg] Unive rsity [facility] Heart rate 2021-08-06 16:36:00 87 /min [facility] Body temperature 2021-08-06 16:36:00 37 [facility] Respiratory rate 2021-08-06 16:36:00 18 /min [facility] Body height 2021-08-06 16:36:00 149.9 cm [facility] Body weight 2021-08-06 16:36:00 36.197 kg [facility] BMI 2021-08-06 16:36:00 16.12 kg/m2 [facility] Systolic blood 2021-05-12 19:05:00 142 mm[Hg] Univer sity of [facility] Diastolic blood 2021-05-12 19:05:00 94 mm[Hg] Unive rsity [facility] Heart rate 2021-05-12 19:04:00 94 /min [facility] Body temperature 2021-05-12 19:04:00 37.11 [facility] Respiratory rate 2021-05-12 19:04:00 16 /min [facility] Body height 2021-05-12 19:04:00 149.9 cm [facility] Body weight 2021-05-12 19:04:00 35.743 kg [facility] BMI 2021-05-12 19:04:00 15.92 kg/m2 [facility] Height 2021-03-23 00:00:00 59 [in_i] [facility] s BMI (Body Mass 2021-03-23 00:00:00 15.6 kg/m2 [facility] Index) [facility] s BP Systolic 2021-03-23 00:00:00 120 mm[Hg] [facility] s Body Weight 2021-03-23 00:00:00 1232 [oz_av] [facility] s BP Diastolic 2021-03-09 00:00:00 92 mm[Hg] [facility] s Height 2021-03-09 00:00:00 59 [in_i] [facility] s BMI (Body Mass 2021-03-09 00:00:00 15.3 kg/m2 [facility] Index) [facility] s BP Systolic 2021-03-09 00:00:00 140 mm[Hg] [facility] s Body Weight 2021-03-09 00:00:00 1216 [oz_av] [facility] s BP Diastolic 2021-02-27 00:00:00 70 mm[Hg] [facility] s Height 2021-02-27 00:00:00 59 [in_i] [facility] s BMI (Body Mass 2021-02-27 00:00:00 15.5 kg/m2 [facility] Index) [facility] s BP Systolic 2021-02-27 00:00:00 116 mm[Hg] [facility] s Body Weight 2021-02-27 00:00:00 1224 [oz_av] [facility] s BP Diastolic 2021-02-12 00:00:00 62 mm[Hg] [facility] s Height 2021-02-12 00:00:00 59 [in_i] [facility] s BMI (Body Mass 2021-02-12 00:00:00 15.8 kg/m2 [facility] s BP Systolic 2021-02-12 00:00:00 92 mm[Hg] [facility] s Body Weight 2021-02-12 00:00:00 1248 [oz_av] [facility] s Procedures Procedure Date / Time Performed Performing Clinician Teddy griffith GARDASIL 9 (HPV 9V) 2021-05-12 19:19:17 Aida Paniagua [facility] CT, head, w/o 2021-02-27 00:00:00 [facility] Drainage of Abscess [facility] Plan of Care Planned Activity Planned Date Details Comments Source Diagnostic Test 2021-02-12 CBC w/ auto diff [facility] Pending 00:00:00 [code = CBC w/ Hospital Clin ics auto diff] Diagnostic Test 2021-02-12 TSH, serum or [place] Comm unity Pending 00:00:00 plasma [code = Hospital Clin ics TSH, serum or plasma] Diagnostic Test 2021-02-12 CMP, serum or [place] Comm unity Pending 00:00:00 plasma [code = Hospital Clin ics CMP, serum or plasma] Encounters Start End Encounter Admission Attending Care Care Encounter Source Date/Time Date/Time Type Type Clinicians Facility Department ID 2021-04-12 Emergency X [facility] DALE [id number] Univers [facility] 2021-04-12 Emergency [facility] [id number] Univers 09:38:57 [facility] 2021-04-10 Outpatient P [facility] SABINA [id number] Univers 19:34:52 [facility] 2021-04-09 Emergency [facility] [id number] Univers 11:46:29 [facility] 2021-10-29 2021-10-29 Outpatient R DIO [facility] [id number] Univers 10:30:00 10:30:00 AUSTIN giles [facility] 2021-08-06 2021-08-06 Nurse Visit, Ang-Rmchp Nurse [facility] [id number] .[id number] Univers 10:30:00 10:45:35 Visit Jesus Bravo OYSTER WORKER [id number] [facility] [id number] [place] as MATERNAL [phone] [facility] & CHILD [address] [place] [address] 2021-08-06 2021-08-06 Outpatient R SHELLY [facility] [id number] Univers 10:30:00 10:30:00 ELISAALEXANDERCAMILLE sanjiv giles [facility] 2021-05-12 2021-05-12 [facility] [id number] Univers 13:00:00 13:37:16 AIDA sanjiv [facility] 2021-05-12 2021-05-12 [facility] [id number] Univers 12:55:58 13:37:16 Visit Aida Perez OYSTER WORKER [id number] it y of [facility] [id number] [place] as MATERNAL [phone] [facility] & [address] 2021-03-23 2021-03-23 Outpatient NEWTONR [facility] 1002 [place] 02:45:00 02:45:00 1011 Commun i ty Hospita l Clinics 2021-03-23 2021-03-23 [facility] [id number] 00:00:00 00:00:00 Rupesh [id number] [place] [id number] 2021-03-23 2021-03-23 Rupesh [facility] [place] 00:00:00 00:00:00 [facility] DO: [address] [facility] [address] Clinic s [place], [place] CL[place]IC, [address] GILDA , Ph. 2021-03-09 2021-03-09 Outpatient ERICKSON_R [facility] [id number] 12:32:00 12:32:00 0927 Commun i ty Hospita [facility] 2021-03-09 2021-03-09 Outpatient Gilda [facility] [id number] 00:00:00 00:00:00 Rupesh [id number] Jesse [id number] 2021-03-09 Rupesh [facility] [place] 00:00:00 00:00:00 [facility] DO: [address] [facility] [facility] Hospit a [place], [place] CLINIC, [address] GILDA , Ph. [phone] 2021-02-27 2021-02-27 Outpatient ERICKSON_R [facility] [id number] 11:46:00 11:46:00 0917 [facility] i [facility] 2021-02-27 2021-02-27 Rupesh [facility] [place] 00:00:00 00:00:00 [facility] DO: [address] Hospit a [place], [place] CLINIC, [address] GILDA , Ph. 2021-02-27 2021-02-27 [facility] [id number] 00:00:00 00:00:00 Rupesh [id number]-a Jesse [id number] 2021-02-17 2021-02-17 Nurse Visit, KwameRmchp Nurse [facility] [id number] .[id number] [facility] 14:51:27 15:16:50 Visit Jesus Bravo OYSTER WORKER [id number] [facility] [id number] [place] MATERNAL [phone] Med ical & CHILD [address] [place] [address] 2021-02-17 2021-02-17 Outpatient R [facility] [id number] Univers 15:00:00 15:00:00 ity [facility] 2021-02-17 2021-02-17 Outpatient R [facility] [id number] Univers 13:00:00 13:00:00 ity [facility] 2021-02-12 2021-02-12 Outpatient ERICKSON_R [facility] [id number] [place] 09:58:00 09:58:00 0902 Commun i ty Hospita [facility] 2021-02-12 2021-02-12 Outpatient Gilda [facility] [id number] 00:00:00 00:00:00 Rupesh [id number] [place] [id number] 2021-02-12 Rupesh [facility] [place] 00:00:00 00:00:00 [facility] DO: [address] Hospit a [facility] l [address], HOSPITAL Clinic s [place], [place] CLINIC, [address] GILDA , Ph. [phone] 2020-11-24 2020-11-24 Nurse Visit, Ang-Rmchp Nurse [facility] 1.2 .840.114 [id number] Univers 12:45:47 13:14:58 Visit Jesus Bravo OYSTER WORKER [id number] [facility] [id number] [place] MATERNAL [phone] Med ical & CHILD [address] [place] [address] 2020-11-24 2020-11-24 Outpatient R [facility] [id number] Univers 13:00:00 13:00:00 ity [facility] 2020-09-09 2020-09-09 Emergency Giovanni, [facility] [id number] Univers 18:38:00 20:41:00 Tash Emery [id number] i ty of [place] [id number] [place] [facility] [id number] [facility] [address] [place] 2020-09-09 2020-09-09 Emergency Giovanni [facility] [id number] 18:38:00 20:41:00 Tash Emery [id number] [place] [id number] [place] [id number] [facility] 2020-09-09 2020-09-09 Orders Doctor KARUNA 1.2.840.114 [id number] Univers 00:00:00 00:00:00 Only Unassigned, WHIT [id number] ity of [facility] [id number] [place] as [phone] [address] 2020-09-09 2020-09-09 Orders Doctor BECKMAN 1.2.840.114 [id number] 00:00:00 00:00:00 Only Unassigned, WHIT [id number] [place] [address]686 [phone] [id number] 2020-09-01 2020-09-01 Outpatient R [facility] [id number] Univers 13:30:00 13:30:00 ity [facility] 2020-09-01 2020-09-01 [facility] 1.2 .840.114 [id number] Univers 13:14:18 13:29:18 Visit Jesus Bravo OYSTER WORKER [id number] ity of [facility] [id number] [place] MATERNAL [phone] Med ical & CHILD [address] [place] [address] 2020-09-01 2020-09-01 Nurse Visit, [facility] 1.2.840.114 [id number] 13:14:18 13:29:18 [facility] WORK[facility] [id number] [facility] [id number] MATERNAL [phone] & CHILD [facility] 2020-09-01 2020-09-01 Orders Doctor BECKMAN 1.2.840.114 [id number] Univers 00:00:00 00:00:00 Only Unassigned, WHIT [id number] ity of [place] [facility] [id number] [place] as [phone] [address] 2020-09-01 2020-09-01 Orders Doctor KARUNA 1.2.840.114 [id number] 00:00:00 00:00:00 Only Unassigned, WHIT [id number] [place] [facility] [id number] 2020-08-27 2020-08-27 Outpatient R [facility] [id number] Univers 09:00:00 09:00:00 ity [facility] 2020-08-26 2020-08-26 Outpatient R [facility] [id number] Univers 11:00:00 11:00:00 ity [facility] 2020-06-27 2020-06-27 Outpatient ERICKSON_R [place] [id number] [place] 11:57:00 11:57:00 [id number] Commun i ty Hospita l Clinics 2020-06-24 2020-06-24 Outpatient ERICKSON_R [place] [id number] [place] 12:55:00 12:55:00 0112 Commun i ty Hospita l Clinics 2020-06-24 2020-06-24 Outpatient Gilda, [facility] [id number] 00:00:00 00:00:00 Rupesh [id number] Jesse [id number] 2020-06-24 2020-06-24 Rupesh [facility] [place] [id number] 12 [place] 00:00:00 00:00:00 [facility] DO: [address] [facility] [address] Clinic [place], [address] GILDA , Ph. 2020-06-03 2020-06-03 Nurse Visit, Ang-Rmchp Nurse [facility] 1.2 .840.114 [id number] [facility] 10:00:12 10:31:51 Visit Austin Wharton OYSTER WORKER [id number] 10 ity of REGIONAL [id number] [place] as MATERNAL [phone] Med ical & CHILD [address] [place] [address] 2020-06-03 2020-06-03 Nurse Visit, [facility] 1.2.840.114 [id number] 10:00:12 10:31:51 [facility] OYSTER WORKER [id number] Nurse REGIONAL [id number] MATERNAL [phone] & CHILD [address] [place] [address] 2020-06-03 2020-06-03 Outpatient R [facility] [id number] Univers 10:00:00 10:00:00 ity of [facility] 2020-06-03 2020-06-03 Telephone Shelly [facility] [id number] [facility] 00:00:00 00:00:00 Rosnda R OYSTER WORKER [id number] ity of [facility] [id number] [place] MATERNAL [phone] Med ical & CHILD [address] [place] [address] 2020-06-03 2020-06-03 Telephone Shelly [facility] [id number] 00:00:00 00:00:00 Rosalexandernda R OYSTER WORKER [id number] [facility] [id number] MATERNAL [phone] & CHILD [address] [place] [address] 2020-04-17 2020-04-17 Office Shelly [facility] 1.2.840.114 [id number] [facility] 13:18:15 13:58:29 Visit Elisanda R OYSTER WORKER [id number] ity of [facility] [id number] [place] MATERNAL [id number] Med ical & CHILD [address] [place] [address] 2020-04-17 2020-04-17 Office Shelly NYCECILIA 1.2.840.114 [id number] 13:18:15 13:58:29 Visit Rosnda R OYSTER WORKER [id number] REGIONAL 4.2.7.2.686 MATERNAL [id number] & CHILD [address] [place] [address] 2020-04-17 2020-04-17 Outpatient R SHELLY [facility] [id number] Univers 13:15:00 13:15:00 ROSHUNDA ity o f [facility] 2020-03-26 2020-03-26 Routine Shelly [facility] 1.2.840.114 [id number] Univers 14:57:11 15:17:44 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 [id number] ity of Visit REGIONAL 4.2.7.2.686 [place] MATERNAL [phone] [facility] ical & CHILD [address] [place] [address] 2020-03-26 2020-03-26 Outpatient R SHELLY [facility] [id number] Univers 15:15:00 15:15:00 ROSHUNDA ity o f [facility] 2020-03-08 2020-03-09 [facility] 1.2.840.114 [id number] Univers 05:46:00 12:45:00 Encounter Piper Emery 350.1.13.10 ity of [place]2.7.2.686 [place] [facility] [phone] [address] 2020-03-05 2020-03-05 [facility] 1.2.840.114 [id number] Univers 14:41:08 14:56:08 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 [id number] ity of Visit [facility] 4.2.7.2.686 [place] MATERNAL [id number] [facility] ical & CHILD [address] [place] [address] 2020-03-05 2020-03-05 Outpatient R SHELLY [facility] [id number] Univers 14:45:00 14:45:00 ROSHUNDA ity o f [facility] 2020-02-27 2020-02-27 [facility] 1.2.840.114 [id number] Univers 15:10:42 15:31:06 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 [id number] ity of Visit [facility] [id number] [place] MATERNAL [phone] [facility] ical & CHILD [address] [place] [address] 2020-02-27 2020-02-27 [facility] [id number] Univers 15:15:00 15:15:00 JOLLYNDA josiahy o f [facility] 2020-02-22 2020-02-22 [facility] [id number] Univers 00:00:00 00:00:00 Rosalexandernda R OYSTER WORKER [id number] ity of [place] 4.2.7.2.686 [place] MATERNAL [phone] [facility] ical & CHILD [address] [place] [address] 2020-02-20 2020-02-20 [facility] 1.2.840.114 [id number] Univers 13:37:48 14:35:05 Rosalexandernda R OYSTER WORKER [id number] ity of Visit REGIONAL 4.2.7.2.686 [place] MATERNAL [id number] [facility] [address] [place] [address] 2020-02-20 2020-02-20 Outpatient [facility] [id number] Univers 13:45:00 13:45:00 JOLLYNDA sanjiv o f [facility] 2020-02-19 2020-02-19 Outpatient Emeli [facility] [id number] Univers 15:15:00 15:15:00 JOLLYNDA sanjiv o f [facility] 2020-02-11 2020-02-11 [facility] 1.2.840.114 [id number] Univers 10:54:41 11:26:57 Jollynda R OYSTER WORKER [id number] ity of Visit REGIONAL 4.2.7.2.686 [place] MATERNAL [phone] [facility] & CHILD [address] [place] [address] 2020-02-11 2020-02-11 Outpatient [facility] [id number] Univers 11:00:00 11:00:00 JOLLYNDA josiahy o f [facility] 2020-02-04 2020-02-04 Outpatient Emeli [facility] [id number] Univers 13:00:00 13:00:00 JOLLYNDA josiahy o f [facility] 2020-01-21 2020-01-21 Routine [facility] 1.2.840.114 [id number] Univers 15:01:59 15:16:59 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 [id number] ity of [facility] 4.2.7.2.686 [place] MATERNAL [phone] [facility] & [address] 2020-01-21 2020-01-21 Outpatient R SHELLY [facility] [id number] Univers 15:15:00 15:15:00 ROSHUNDA ity o f [facility] 2020-01-16 2020-01-16 [facility] [id number] Univers 09:45:00 09:45:00 ROSALEXANDERNDA ity o f [facility] 2020-01-10 2020-01-10 [facility] [id number] Univers 13:30:00 13:30:00 JOLLYNDA ity o f [facility] 2020-01-03 2020-01-03 [facility] [id number] Univers 09:30:00 09:30:00 ROSALEXANDERNDA ity o f [facility] 2019-12-28 2019-12-28 Telephone Danisha [facility] [id number] Univers 00:00:00 00:00:00 [facility] [id number] it y of [place] 4.2.7.2.686 [place] as Professio [phone] [address] Office Building One 2019-12-28 2019-12-28 [facility]phone [facility] [id number] Univers 00:00:00 00:00:00 Rosnda R 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 840.114 [id number] Univers 10:28:02 10:48:02 Only Veronika Raman [facility] 350.1.13.10 ity of [place] 4.2.7.2.686 [place] as Professio [phone] [address] Office [facility] One 2019-12-20 2019-12-20 Routine Shelly [facility] 1.2.840.114 [id number] Univers 09:25:07 09:40:07 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 [id number] ity of Visit REGIONAL 4.2.7.2.686 [place] MATERNAL [id number] [facility] ical & CHILD [address] [place] [address] 2019-12-20 2019-12-20 Outpatient R SHELLY [facility] [id number] Univers 09:30:00 09:30:00 ROSALEXANDERNDA ity o [facility] 2019-11-29 2019-11-29 Routine [facility] 1.2.840.114 [id number] Univers 08:51:14 09:34:58 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 [id number] ity of Visit [facility] 4.2.7.2.686 [place] MATERNAL [id number] [facility] & [address] 2019-11-29 2019-11-29 Outpatient Emeli BRAVO [facility] [id number] Univers 08:45:00 08:45:00 JOLLYNDA itdiane o 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, [facility] 1.2 .840.114 [id number] Univers 12:56:30 13:56:30 Visit Newton Braga OYSTER WORKER 350.1.13.10 ity of [facility] 4.2.7.2.686 [place] MATERNAL [id number] [facility] [address] [facility] 2019-10-24 2019-10-24 Outpatient P [facility] [id number] Univers 13:00:00 13:00:00 ity of [facility] 2019-10-24 2019-10-24 Abstract [facility] 1.2.840.114 [id number] Univers 00:00:00 00:00:00 Rosalexandernda R OYSTER WORKER [id number] ity of [facility] 4.2.7.2.686 [place] MATERNAL [id number] [facility] & CHILD [address] [place] [address] 2019-10-23 2019-10-23 Orders Doctor KARUNA 1.2.840.114 [id number] Univers 00:00:00 00:00:00 Only Unassigned, WHIT 350.1.13.10 ity of [place] [facility] 4.2.7.2.686 [place] as [id number] [address] 2019-10-08 2019-10-08 Outpatient R SHELLY [facility] [id number] Univers 08:45:00 08:45:00 JOLLYNDA ity o f [facility] 2019-09-10 2019-09-10 Routine Shelly [facility] 1.2.840.114 [id number] Univers 09:17:47 09:32:47 Jollynda R OYSTER WORKER [id number] ity of Visit [facility] 4.2.7.2.686 [place] MATERNAL [id number] [facility] & CHILD [address] [place] [address] 2019-09-10 2019-09-10 Outpatient R SHELLY [facility] [id number] Univers 09:30:00 09:30:00 JOLLYNDA ity o f [facility] 2019-08-27 2019-08-27 Routine Faculty, Marcelo Corado [facility] 1.2 .840.114 [id number] Univers 09:29:11 10:42:59 Velasquez Jacob OYSTER WORKER 350.1.13. 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 Ultrasound, Bala [facility] 1.2 .840.114 [id number] Univers 15:08:00 15:38:00 Visit Sarah Kraus OYSTER WORKER [id number] ity of [facility] 4.2.7.2.686 [place] MATERNAL [phone] [facility] ical & CHILD [address] [facility] 2019-08-13 2019-08-13 Outpatient P [facility] [id number] Univers 15:15:00 15:15:00 ity of [facility] 2019-08-13 2019-08-13 Abstract [facility] 1.2.840.114 [id number] Univers 00:00:00 00:00:00 Rosamberlya R OYSTER WORKER 350.1.13.10 ity of [facility] 4.2.7.2.686 [place] MATERNAL [phone] [facility] & CHILD [address] [place] [address] 2019-08-10 2019-08-10 Emergency Cony [facility] 1.2.840.114 [id number] Univers 18:38:08 20:30:00 Kade Giles [place] 350.1.13.10 ity of [place] 4.2.7.2.686 [place] [facility] [id number] [address] 2019-08-09 2019-08-09 Telephone Shelly [facility] 1.2.198.689 [id number] Univers 00:00:00 00:00:00 Rosamberlya R OYSTER WORKER 350.1.13.10 ity of [facility] 4.2.7.2.686 [place] MATERNAL [id number] [facility] ical & CHILD [address] [place] [address] 2019-08-08 2019-08-08 Initial Shelly [facility] 1.2.840.114 [id number] Univers 09:32:21 10:51:53 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 [id number] ity of Visit [facility] 4.2.7.2.686 [place] MATERNAL [id number] Med ical & CHILD [address] [facility] 2019-08-08 2019-08-08 Outpatient R SHELLY [facility] [id number] Univers 09:15:00 09:15:00 JOLLYNDA ity o f [facility] 2019-08-04 2019-08-04 Emergency [facility] 1.2.840.114 [id number] Univers 17:44:54 18:44:00 Folusho [facility] 350.1.13.10 ity of [place] 4[place].7.2.[place] [id number] [address] 2019-08-04 2019-08-04 Emergency [facility] [id number] Univers 17:44:54 18:44:00 JOSUEUSHO ity of [facility] 2019-07-08 2019-07-08 Emergency [facility] 1.2.589.222 [id number] Univers 15:16:05 18:14:00 Fuadleonel Cordell [place] 350.1.13.10 ity of [place] 4.2.7.2.686 [id number] [address] 2019-07-08 2019-07-08 Emergency [facility] E[facility] [id number] Univers 15:16:05 18:14:00 TANESHA ity of [facility] 2019-07-08 2019-07-08 Orders Doctor BECKMAN 1.2.840.114 [id number] Univers 00:00:00 00:00:00 Only Unassigned, WHIT 350.1.13.10 ity of [place] [facility] 4.2.7.2.686 [place] as [phone] [facility] [address] Results This patient has no known results.
[2023-01-15] MEDS ORDERED: NA CHLORIDE 0.9% 1,000 ML ONE (02:07)
[2023-01-15] MEDS ORDERED: CEFTRIAXONE 1000 MG/VIAL ONE (02:07)
[2023-01-15] MEDS ORDERED: dexAMETHasone 10 MG/ML VIAL ONE (02:07)
[2023-01-15] MEDS ORDERED: CLINDAMYCIN 900MG/D5W 900 MG/50 ML IVPB IV ONE (02:07)
[2023-01-15 02:15] LABS: Absolute Lymphocytes (CBC) 2.7 K/uL (0.7-4.9); Hematocrit 42.5 % (36.0-45.0); Lymphocytes % 21.3 % (15.3-44.8); MPV 8.9 fL (7.6-11.3)
[2023-01-15 02:15] LABS: Specific Gravity 1.025 (1.005-1.030); Urine Bilirubin NEGATIVE (Negative); Urine Blood Negative (Negative); Urine Clarity Clear (Clear); Urine Color Light-Yellow (Yellow); Urine Glucose NEGATIVE (Negative); Urine Protein NEGATIVE (Negative); Urine Urobilinogen Normal (Normal); Urine pH 5.5 (5.0-7.0)
[2023-01-15 02:16] LABS: Specific Gravity 1.025 (1.005-1.030)
[2023-01-15 02:32] LABS: Albumin 4.2 g/dL (3.4-5.0); Bilirubin Total 0.3 mg/dL (0.2-1.0); Potassium 3.7 mEq/L (3.5-5.1); Protein, Total 7.7 g/dL (6.4-8.2)
--- NOTE | 2023-01-15 04:43 | ER ---
Nurse's Notes [facility] Name: Marah Pierce Age: 27 yrs Sex: Female : 1995 Arrival Date: 01/15/2023 Time: 00:43 Bed 8 Private MD: Diagnosis: Peritonsillar abscess-1.6x1.3x1.1 cm Presentation: 01/15 01:03 Chief complaint: Patient states: throat pain of 10 with swelling to left side pf1 throat,onset 1 day. Patient stated history of tonsillar abscess. Patient stated has an appointment with Dr. Aicha Durham on Tuesday to receive antibiotics for throat. Coronavirus screen: Vaccine status: Patient reports being unvaccinated. Client denies travel out of the [place] in the last 14 days. At this time, the client does not indicate any symptoms associated with coronavirus-19. Ebola Screen: Patient negative for fever greater than or equal to 101.5 degrees Fahrenheit, and additional compatible Ebola Virus Disease symptoms. Initial Sepsis Screen: Does the patient meet any 2 criteria? No. Patient's initial sepsis screen is negative. Does the patient have a suspected source of infection? No. Patient's initial sepsis screen is negative. Risk Assessment: Do you want to hurt yourself or someone else? Patient reports no desire to harm self or others. 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 Last tetanus immunization: < 10 years ago Flu vaccine is not up to date. - Social history:: Smoking status: Patient reports the use of cigarette tobacco products, smokes one-half pack cigarettes per day, Patient uses alcohol, occasionally. Patient/guardian denies using street drugs. Screenin:10 [facility] ED Fall Risk Assessment (Adult) History of falling in the last 3 months, pf1 including since admission No falls in past 3 months (0 pts) Confusion or Disorientation No (0 pts) Intoxicated or Sedated No (0 pts) Impaired Gait No (0 pts) Mobility Assist Device Used No (0 pt) Altered Elimination No (0 pt) Score/Fall Risk Level 0 - 2 = Low Risk Oriented to surroundings, Maintained a safe environment, Educated pt \T\ family on fall prevention, incl call for assistance when getting out of bed, Assessed \T\ reinforced patient's understanding of fall precautions, Provided non-skid footwear, Hourly rounding (assess needs \T\ fall precautionary measures) done, Used ambulatory aids as needed (educated on \T\ assisted with), Used gait belt as appropriate. Abuse screen: Denies threats or abuse. Nutritional screening: No deficits noted. Tuberculosis screening: No symptoms or risk factors identified. Assessment: 01:10 General: Appears in no apparent distress. comfortable, Behavior is calm, cooperative, jb4 appropriate for age. Pain: Complains of pain in neck Pain does not radiate. Pain currently is 8 out of 10 on a pain scale. Neuro: Level of Consciousness is awake, alert, obeys commands, Oriented to person, place, time, situation. Cardiovascular: Patient's skin is warm and dry. Respiratory: Airway is patent Respiratory effort is even, unlabored, Respiratory pattern is regular, symmetrical. GI: : EENT: No signs and/or symptoms were reported regarding the EENT system. Derm: Skin is intact, Skin is pink, warm \T\ dry. 02:00 Reassessment: Patient appears in no apparent distress at this time. Patient and/or jb4 family updated on plan of care and expected duration. Pain level reassessed. Patient is alert, oriented x 3, equal unlabored respirations, skin warm/dry/pink. 03:00 Reassessment: Patient appears in no apparent distress at this time. Patient and/or jb4 family updated on plan of care and expected duration. Pain level reassessed. Patient is alert, oriented x 3, equal unlabored respirations, skin warm/dry/pink. 04:00 Reassessment: Patient appears in no apparent distress at this time. Patient and/or jb4 family updated on plan of care and expected duration. Pain level reassessed. Patient is alert, oriented x 3, equal unlabored respirations, skin warm/dry/pink. 05:24 Reassessment: Patient appears in no apparent distress at this time. Patient and/or jb4 family updated on plan of care and expected duration. Pain level reassessed. Patient is alert, oriented x 3, equal unlabored respirations, skin warm/dry/pink. Vital Signs: 01:03 BP 138 / 92; Pulse 71; Resp 16; Temp 98.1; Pulse Ox 100% on R/A; Weight 39.01 kg; pf1 Height 4 ft. 11 in. ; Pain 10/10; 03:30 BP 110 / 73; Pulse 76; Resp 16; Pulse Ox 98% on R/A; jb4 04:30 BP 113 / 78; Pulse 72; Resp 16; Pulse Ox 98% on R/A; jb4 01:03 Body Mass Index 17.37 (39.01 kg, 149.86 cm) pf1 01:03 Pain Scale: Adult pf1 ED Course: 00:45 Patient arrived in ED. am2 01:08 Triage completed. pf1 01:30 Olegario Gomez MD is Attending Physician. emiliano 02:04 Inserted saline lock: 20 gauge in right antecubital area, using aseptic technique. oe Blood collected. 03:04 CT Soft Tissue Neck W/contr In Process Unspecified. EDMS 03:28 Michael Oliver, RN is Primary Nurse. rv 04:30 Assist provider with I \T\ D: of an abscess on peritonsillar area Set up I\T\D tray. silas 4 Performed by Shanna Quinteros MD Patient tolerated well. IV discontinued, intact, bleeding controlled, No redness/swelling at site. Pressure dressing applied. 04:30 Patient has correct armband on for positive identification. Bed in low position. Call jb4 light in reach. Side rails up X 1. Client placed on continuous cardiac and pulse oximetry monitoring. NIBP monitoring applied. 04:43 Shanna Quinteros MD is Referral Physician. emiliano Administered Medications: 02:13 Drug: Clindamycin IVPB 900 mg Route: IVPB; Infused Over: 30 mins; Site: right jb4 antecubital; 02:13 Drug: NS 0.9% IV 1000 ml Route: IV; Rate: 1 bolus; Site: right antecubital; jb4 02:14 Drug: Rocephin IV 1 grams Route: IV; Rate: per protocol; Site: right antecubital; jb4 02:14 Drug: Decadron - Dexamethasone IVP 10 mg Route: IVP; Site: right antecubital; jb4 04:53 Drug: fentaNYL (PF) IVP 25 mcg Route: IVP; Site: right antecubital; jb4 04:53 Drug: Ondansetron IVP 4 mg Route: IVP; Site: right antecubital; jb4 04:53 Drug: fentaNYL (PF) IVP 25 mcg Route: IVP; Site: right antecubital; jb4 04:53 Drug: Ativan IVP 1 mg Route: IVP; Site: right antecubital; jb4 04:53 Not Given (Duplicate Order): Ativan IVP 1 mg IVP once jb4 04:53 Not Given (Duplicate Order): Ativan IVP 1 mg IVP once jb4 Outcome: 04:43 Discharge ordered by . emiliano 05:25 Discharged to home ambulatory, with family. jb4 05:25 Condition: stable 05:25 Discharge instructions given to patient, Instructed on discharge instructions, follow up and referral plans. no driving heavy equipment, Demonstrated understanding of instructions, follow-up care, medications, Prescriptions given X 2. 05:25 Patient left the ED. jb4 Signatures: Dispatcher [employer] EDMS Olegario Gomez MD MD cha Bryson, James, RN RN jb4 Andrew Batista Amanda am2 Vicente, Ronaldo, RN RN rv Finley, Pamala, RN RN pf1
--- NOTE | 2023-01-15 04:43 | EDPHYS ---
Physician Documentation [facility] Name: Marah Pierce Age: 27 yrs Sex: Female : 1995 Arrival Date: 01/15/2023 Time: 00:43 Bed 8 Private MD: Olegario Garcia HPI: 01/15 02:15 This 27 yrs old Female presents to ER via Ambulatory with complaints of emiliano Abscess, throat pain. 02:15 The patient presents with an abscess of the left buccal mucosa and left aspect of emiliano posterior pharynx. Description: erythematous, fluctuant. Onset: The symptoms/episode began/occurred 1 day(s) ago. Possible cause(s): unknown. Associated signs and symptoms: Pertinent positives: swelling. Modifying factors: the symptoms are alleviated by nothing, the symptoms are aggravated by pressure, swelling. 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 Last tetanus immunization: < 10 years ago Flu vaccine is not up to date. - Social history:: Smoking status: Patient reports the use of cigarette tobacco products, smokes one-half pack cigarettes per day, Patient uses alcohol, occasionally. Patient/guardian denies using street drugs. ROS: 02:16 Constitutional: Negative for fever, chills, and weight loss, Eyes: Negative for injury, emiliano pain, redness, and discharge, Neck: Negative for injury, pain, and swelling, Cardiovascular: Negative for chest pain, palpitations, and edema, Respiratory: Negative for shortness of breath, cough, wheezing, and pleuritic chest pain, Abdomen/GI: Negative for abdominal pain, nausea, vomiting, diarrhea, and constipation, Back: Negative for injury and pain, : Negative for injury, bleeding, discharge, and swelling, MS/Extremity: Negative for injury and deformity, Skin: Negative for injury, rash, and discoloration, Neuro: Negative for headache, weakness, numbness, tingling, and seizure, Psych: Negative for depression, anxiety, suicide ideation, homicidal ideation, and hallucinations, Allergy/Immunology: Negative for hives, rash, and allergies, Endocrine: Negative for neck swelling, polydipsia, polyuria, polyphagia, and marked weight changes, Hematologic/Lymphatic: Negative for swollen nodes, abnormal bleeding, and unusual bruising. 02:16 ENT: Positive for sore throat. Exam: 02:16 Constitutional: This is a well developed, well nourished patient who is awake, alert, emiliano and in no acute distress. Head/Face: Normocephalic, atraumatic. Eyes: Pupils equal round and reactive to light, extra-ocular motions intact. Lids and lashes normal. Conjunctiva and sclera are non-icteric and not injected. Cornea within normal limits. Periorbital areas with no swelling, redness, or edema. Neck: Trachea midline, no thyromegaly or masses palpated, and no cervical lymphadenopathy. Supple, full range of motion without nuchal rigidity, or vertebral point tenderness. No Meningismus. Chest/axilla: Normal chest wall appearance and motion. Nontender with no deformity. No lesions are appreciated. Cardiovascular: Regular rate and rhythm with a normal S1 and S2. No gallops, murmurs, or rubs. Normal PMI, no JVD. No pulse deficits. Respiratory: Lungs have equal breath sounds bilaterally, clear to auscultation and percussion. No rales, rhonchi or wheezes noted. No increased work of breathing, no retractions or nasal flaring. Abdomen/GI: Soft, non-tender, with normal bowel sounds. No distension or tympany. No guarding or rebound. No evidence of tenderness throughout. Back: No spinal tenderness. No costovertebral tenderness. Full range of motion. Skin: Warm, dry with normal turgor. Normal color with no rashes, no lesions, and no evidence of cellulitis. MS/ Extremity: Pulses equal, no cyanosis. Neurovascular intact. Full, normal range of motion. Neuro: Awake and alert, GCS 15, oriented to person, place, time, and situation. Cranial nerves II-XII grossly intact. Motor strength 5/5 in all extremities. Sensory grossly intact. Cerebellar exam normal. Normal gait. Psych: Awake, alert, with orientation to person, place and time. Behavior, mood, and affect are within normal limits. 02:16 ENT: Posterior pharynx: Tonsils: enlarged on the left, bilaterally enlarged, with erythema, Uvula: midline, non-edematous, no erythema, swelling, is not appreciated, erythema, is not appreciated, exudate, is not appreciated, peritonsillar mass, is not appreciated, pooling of secretions, is not appreciated, Dental exam: normal, no acute changes, Voice: is normal. Vital Signs: 01:03 BP 138 / 92; Pulse 71; Resp 16; Temp 98.1; Pulse Ox 100% on R/A; Weight 39.01 kg; pf1 Height 4 ft. 11 in. ; Pain 10/10; 03:30 BP 110 / 73; Pulse 76; Resp 16; Pulse Ox 98% on R/A; jb4 04:30 BP 113 / 78; Pulse 72; Resp 16; Pulse Ox 98% on R/A; jb4 01:03 Body Mass Index 17.37 (39.01 kg, 149.86 cm) pf1 01:03 Pain Scale: Adult pf1 MDM: 01:30 Patient medically [address] [facility] 02:18 Differential diagnosis: gingivostomatitis, group A strep tonsillitis, influenza, emiliano laryngitis, bhavya's angina, lymphoma, peritonsillar abscess chlamydia pharyngitis, pharyngitis, tonsillitis, tracheobronchitis, upper respiratory infection, uvulitis, viral syndrome. Data reviewed: vital signs, nurses notes, lab test result(s), radiologic studies, CT scan. Consideration of Admission/Observation Escalation of care including admission/observation considered. I considered the following discharge prescriptions or medication management in the emergency department Medications were administered in the Emergency Department. See MAR. Independent interpretation of the following test(s) in the Emergency Department CT Scan: My interpretation is SOFT TISSUE NECK. Test considered but Not performed: EKG: no ekg. 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 01/15 01:31 Order name: CBC with Diff; Complete Time: 04:19 emiliano 01/15 01:31 Order name: Comprehensive Metabolic Panel; Complete Time: 04:19 emiliano 01/15 01:31 Order name: Strep; Complete Time: 04:19 emiliano 01/15 01:31 Order name: Urinalysis w/ reflexes; Complete Time: 02:15 emiliano 01/15 01:31 Order name: PREGU; Complete Time: 04:[address] [facility] 01/15 03:54 Order name: Throat Culture EDMS 01/15 01:31 Order name: CT Soft Tissue Neck W/contr emiliano 01/15 04:19 Order name: NPO; Complete Time: 04:35 emiliano Administered Medications: 02:13 Drug: Clindamycin IVPB 900 mg Route: IVPB; Infused Over: 30 mins; Site: right jb4 antecubital; 02:13 Drug: NS 0.9% IV 1000 ml Route: IV; Rate: 1 bolus; Site: right antecubital; jb4 02:14 Drug: Rocephin IV 1 grams Route: IV; Rate: per protocol; Site: right antecubital; jb4 02:14 Drug: Decadron - Dexamethasone IVP 10 mg Route: IVP; Site: right antecubital; jb4 04:53 Drug: fentaNYL (PF) IVP 25 mcg Route: IVP; Site: right antecubital; jb4 04:53 Drug: Ondansetron IVP 4 mg Route: IVP; Site: right antecubital; jb4 04:53 Drug: fentaNYL (PF) IVP 25 mcg Route: IVP; Site: right antecubital; jb4 04:53 Drug: Ativan IVP 1 mg Route: IVP; Site: right antecubital; jb4 04:53 Not Given (Duplicate Order): Ativan IVP 1 mg IVP once jb4 04:53 Not Given (Duplicate Order): Ativan IVP 1 mg IVP once jb4 Disposition Summary: 01/15/23 04:43 Discharge Ordered Location: Home emiliano Problem: new emiliano Symptoms: have improved emiliano Condition: Stable emiliano Diagnosis - Peritonsillar abscess - 1.6x1.3x1.1 cm(01/15/23 04:44) emiliano Followup: emiliano - With: Private Physician - When: 2 - 3 days - Reason: Recheck today's complaints, Continuance of care, Re-evaluation by your physician Followup: emiliano - With: - When: 2 - 3 days - Reason: Recheck today's complaints, Continuance of care, Re-evaluation by your physician Discharge Instructions: - Discharge Summary Sheet emiliano - Peritonsillar Abscess emiliano - Peritonsillar Abscess, Mahc-lj-Oibo emiliano - Peritonsillar Cellulitis emiliano Forms: - Medication Reconciliation Form emiliano - Thank You Letter emiliano - Antibiotic Education emiliano - Prescription Opioid Use emiliano - Patient Portal Instructions emiliano - Work release form pf1 Prescriptions: - dexamethasone 2 mg Oral tablet - take 1 tablet by ORAL route every 12 hours; 8 tablet; Refills: 0, Product [facility] Selection Permitted - Clindamycin HCl 300 mg Oral Capsule - take 1 capsule by ORAL route every 6 hours for 10 days; 40 capsule; Refills: 0, emiliano Product Selection Permitted Signatures: Dispatcher [employer] EDOlegario Fernandez MD MD cha Bryson, James, RN RN jb4 Destinee Bell RN RN pf1 Corrections: (The following items were deleted from the chart) 04:44 04:43 Peritonsillar abscess emiliano cummings
[2023-01-15] MEDS ORDERED: LORazepam 2 MG/ML VIAL ONE (04:53)
[2023-01-15] MEDS ORDERED: FENTANYL CITR 100 MCG/2 ML ONE (04:53)
[2023-01-15] MEDS ORDERED: ONDANSETRON 4 MG/2 ML VIAL ONE (04:54)
[2023-01-15 05:41] VITALS: TEMP 98.1
[2023-01-15 05:51] VITALS: O2SAT 98
[2023-01-15 05:52] VITALS: BP 113/78
--- NOTE | 2023-01-15 22:07 | RAD REPORT ---
EXAM DESCRIPTION: Soft Tissue Neck W/Contr 01/15/2023 3:27 AM CDT CLINICAL HISTORY: 27 years, Female, Fever;Swelling COMPARISON: 09/12/2020. TECHNIQUE: Multiple transaxial tomograms of the neck were obtained from the base of the skull to the pulmonary apex utilizing 3 mm slice thickness at 3 mm interval reconstruction after the administrati on of IV contrast. Subsequent coronal and sagittal spinal reformats were generated and reviewed. This exam was performed according to our departmental dose-optimization protocol, which includes auto mated exposure control, adjustment of the mA and/or kV according to patient size and/or use of iterat enrique reconstruction technique. There is again identified the presence of enlargement of the left tonsil with the presence of a centr al area of hypodensity measuring 1.6 x 1.3 x 1.1 cm corresponding to a peritonsillar abscess. There a re prominent left submental lymph node with the largest one measuring 6.2 mm on axial image 28/52. Pr ominent right submandibular lymph node largest one measuring 10.2 mm on image 24. Smaller right subme ntal lymph nodes identified. The right tonsil demonstrate to be within normal limits. There are promi nent submental lymph node Skull base demonstrate to be normal. Nasopharynx, oropharynx, hypopharynx is normal. The mucosa of the base of the tongue, epiglottis, vallecula, piriform sinus and vocal cords demonstrate to be withi n normal limits. Parapharyngeal space demonstrate to be normal. Parotid and submandibular glands ar e normal. There are no calculi. Tiny nondiagnostic lymph nodes are seen within the posterior neck. Paravertebral elements are grossly unremarkable. No significant lymph nodes within the lower cerv ical neck. The thyroid gland and lung apices demonstrate to be unremarkable. IMPRESSION: 1.6 x 1.3 x 1.1 cm left peritonsillar abscess. Prominent bilateral submental and submandibular lymph nodes, likely reactive in nature. Electronically signed by: Gabo Marrero MD 01/15/2023 3:30 AM CDT Due to temporary technical issues with the PACS/Fluency reporting system, reports are being signed by the in house radiologists without review as a courtesy to insure prompt reporting. The interpreting radiologist is fully responsible for the content of the report.
--- NOTE | 2023-01-16 07:12 | ER ---
Date of Visit: 01/15/2023 Chief Complaint: Severe sore throat. History Of Present Illness: The patient is a 27-year-old female with a history of multiple peritonsi llar abscesses, who presented acutely to the emergency room this evening with the same severe sore th roat involving the left peritonsillar region. CT scan demonstrated a 1.6 cm left peritonsillar absce ss and clinically patient had evidence of exudate and fluctuance noted in the left soft palate. The patient was given IV antibiotics and steroids and I was consulted for further recommendations. The p pasha is in no acute distress, but she has a rather large abscess involving left peritonsillar regio ns that is affecting her swallowing and ability to handle her secretions. She denied any dyspnea or airway obstruction. Past Medical History: None. Past Surgical History: None. Medications: None. Social History: Denies alcohol, tobacco or illicit drugs. Review of Systems: Eyes: Denies drainage, blurry or double vision. Ears: Denies hearing loss, tinnitus, otorrhea. Nose: Denies rhinorrhea, postnasal drip, or nasal obstruction. Oral cavity: Positive for odynophagia and dysphagia with severe sore throat. Neck: Denies lymphadenopathy or thyromegaly. Physical Examination: Vital Signs: Stable. Patient is awake, alert, oriented to person, place, and time. Eyes: PERRLA/EOMI. Ears: Deferred. Nose: Moist intranasal mucosa. Midline septum. Oral cavity: Uvula slightly deviated to the right with fluctuance palpated the left soft palate and there is evidence of left superior pole tonsil exudate. Neck: Supple. Trachea midline. Description Of Procedure: After obtaining consent, the patient was placed into a sitting position an d throat was sprayed with Hurricaine analgesic medication. The patient was also given Ativan for anx iety and morphine for pain. I made an incision between the left superior pole of the tonsil and the soft palate and a moderate amount of purulent and sanguinous secretions were suctioned with the [place] uer suction. She tolerated the procedure well. Diagnosis: Acute left peritonsillar abscess. Recommendations: The patient will be discharged home on clindamycin to take 300 mg t.i.d. for 10 day s and will follow up in 1 to 2 weeks or sooner if needed. JEISON/MONTY Voice ID: [id number] Report ID: [id number]
== END 2023-01-15 05:25 | disposition home or self-care (01) ==
LOC: ER 00:43
DX: J36 Peritonsillar abscess (principal); F17.210 Nicotine dependence, cigarettes, uncomplicated; Z88.7 Allergy status to serum and vaccine
CPT/HCPCS: 87070; 85025; 36415; 81025; 87081; 81003; 80053; 70491; 96375; 96374; 99284; Q9967; J3010; J1100; J2405; J7030; J0696

== ENCOUNTER 2023-12-09 19:58 | Emergency (ER) | payer OTHER, SELFPAY ==
--- OUTSIDE RECORDS SUMMARY | 2023-12-09 20:02 | XMS REPORT | Continuity of Care Document ---
Author Name Unknown Address [address] [facility] [address] [place] [address] [facility] thconnect Address [address] [facility] [address] [place] [address] Care Team Providers Care Flooring Professional Name Role Phone PCP, PATIENT DOES NOT HAVE A Primary Care Physic terri Unavailable TANIYA WHARTON Attending Clinician Unavail able [facility], [facility]ending Clinician Unava Jesus Denny Attending Clinician [phone] JESUS BRAVO Attending Clinician Unavailab GWENDOLYN Catalan Attending Clinician UnavailGwendolyn Her Attending Clinician [phone] DENISE Attending Clinician Unavailable Rupesh Vo Attending Clinician [phone] Giovanni OPTICIAN MANAGER, Tash Attending Clinician + [phone] Doctor Unassigned, [place] Attending Clinician U jillian Viladeneen MATTSONP, Taniya C Attending Clinician + Piper Santos MD Attending Clinician [phone] Danisha OPTICIAN MANAGER, Veronika Attending Clinician [phone] Lab, Adc Fam Pob I Attending Clinician Unavailab le Ultrasound, [facility] Attending Clinician Unavailemil Braga MD, Newton Sainz Attending Clinician [phone] Faculty, [facility] Attending Clinician Ryan Jacob MD, Velasquez Buckner Attending Clinician [phone] Efra BELLE, Sarah Singh Attending Clinician [phone] Cony POOLE, Kade Giles Attending Clinician [phone] KADE LEE Attending Clinician Tommie Thurston MD, Tanesha Landa Attending Clinician [phone] TANESHA THURSTON Attending Clinician Unavailable PIPER SANTOS Admitting Clinician Unavailemil WALKER Admitting Clinician Unavailable Piper Santos MD Admitting Clinician [phone] Payers Payer Name Policy Type Policy Number Effective Date Expirati on Date Source [facility] [id number] 2018 00:00:00 [facility] (MEDICAID HMO) [id number] 2020 00:00:00 [facility] [id number] MED[place]ID [place] [id number] 2017 00:00:00 Problems Condition Name Condition Details Condition Category Status Onset Date Resolution Date Last Treatment Date Treating Clinician Comments Source Seizure Seizure Problem Active 02-27 00:00: 00 [facility] Headache Headache Problem Active 02-27 00:00: 00 [facility] Low blood pressure Low Blood Pressure Problem Active 02-12 00:00: 00 [facility] Christal Tillmaneigh t Problem Active 02-12 00:00: 00 [facility] Tobacco abuse Tobacco abuse Disease Active 08-08 00:00: 00 [facility] Christal perdomo Disease Active 08-08 00:00: 00 [facility] Allergies, Adverse Reactions, Alerts Allergy Name Allergy Type Status Severity Reaction(s) Onset Date Inactive Date Treating Clinician Comments Source FLU VAC QV LIVE 2016 (2-49YRS ) DRUG Active Swelling 10-21 00:00: 00 [facility] Flu Vac Qv Live 2016 (2-49yrs ) Propensi ty to adverse reaction s Active Swelling 10-21 00:00: 00 [facility] Social History Social Habit Start Date Stop Date Quantity Comments Source History SDOH Alcohol Frequency [facility] History SDOH Alcohol Std Drinks [facility] History SDOH Alcohol Binge [facility] Exposure to SARS-CoV-2 (event) Not sure [facility] Alcohol intake 2021-08-06 00:00:00 2021-08-06 00:00:00 Current drinker of alcohol (finding) [facility] Alcohol Comment 2021-05-12 00:00:00 2021-05-12 00:00:00 occasional [facility] Cigarettes smoked current (pack per day) - Reported 2019-08-08 00:00:00 2019-08-08 00:00:00 [facility] Tobacco use and exposure 2019-08-08 00:00:00 2019-08-08 00:00:00 Never used [facility] Tobacco Comment 2017-10-21 00:00:00 2017-10-21 00:00:00 hx of smoking : 6 cigarretes per day [facility] History of tobacco use 2015-10-22 00:00:00 2017-10-19 00:00:00 Cigarette Smoker [facility] Sex Assigned At 1995 00:00:00 1995 00:00:00 [facility] Smoking Status Start Date Stop Date Source Heavy Tobacco Smoker [facility] Current every day smoker 2019-08-08 00:00:00 [facility] Medications Ordered Medication Name Filled Medication Name Start Date Stop Date Current Medication? Ordering Clinician Indication Dosage Frequency Signature (SIG) Comments Components Source medroxyPROG ESTERone (DEPO-PROVE RA) injection 150 mg 2020-06 19:30: 00 04-13 18:29 :00 No [id number] 150mg [facility] Depo-[employer] Supervisor a 150 mg/mL intramuscul ar suspension Inject 1 mL every 3 months by intramuscul ar route. Depo-[employer] Supervisor a 150 mg/mL intramuscul ar suspension Inject 1 mL every 3 months by intramuscul ar route. 11-17 00:00: 00 No 1mL Depo-Prove ra 150 mg/mL intramuscu lar suspension Inject 1 mL every 3 months by intramuscu lar route. [facility] Depo-[employer] Supervisor a 150 mg/mL intramuscul ar suspension Inject 1 mL every 3 months by intramuscul ar route. Depo[employer] Super[employer] a 150 mg/mL intramuscul ar suspension Inject 1 mL every 3 months by intramuscul ar route. 11-17 00:00: 00 No 1mL Depo-Prove ra 150 mg/mL intramuscu lar suspension Inject 1 mL every 3 months by intramuscu lar route. [facility] medroxyPROG ESTERone (DEPO-PROVE RA) 150 mg/mL injection 11-17 00:00: 00 05-12 00:00 :00 No 1mL 1 mL. [facility] azithromyci n 500 mg tablet azithromyci n 500 mg tablet No azithromyc in 500 mg tablet [facility] ferrous sulfate 325 mg (65 mg iron) tablet TAKE 1 TABLET BY MOUTH TWICE DAILY ferrous sulfate 325 mg (65 mg iron) tablet TAKE 1 TABLET BY MOUTH TWICE DAILY No ferrous sulfate 325 mg (65 mg iron) tablet TAKE 1 TABLET BY MOUTH TWICE DAILY [facility] ibuprofen 600 mg tablet TAKE 1 TABLET BY MOUTH EVERY 6 HOURS NEEDED FOR PAIN (SCALE 4 6) ibuprofen 600 mg tablet TAKE 1 TABLET BY MOUTH EVERY 6 HOURS NEEDED FOR PAIN (SCALE 4 6) No ibuprofen 600 mg tablet TAKE 1 TABLET BY MOUTH EVERY 6 HOURS NEEDED FOR PAIN (SCALE 4 6) [facility] nitrofurant oin monohydrate /macrocryst als 100 mg capsule TAKE 1 CAPSULE BY MOUTH EVERY 12 HOURS FOR 10 DAYS nitrofurant oin monohydrate /macrocryst als 100 mg capsule TAKE 1 CAPSULE BY MOUTH EVERY 12 HOURS FOR 10 DAYS No nitrofuran toin monohydrat e/macrocry stals 100 mg capsule TAKE 1 CAPSULE BY MOUTH EVERY 12 HOURS FOR 10 DAYS [facility] promethazin e 25 mg tablet TAKE 1 TABLET BY MOUTH EVERY 4 HOURS NEEDED FOR NAUSEA AND VOMITING promethazin e 25 mg tablet TAKE 1 TABLET BY MOUTH EVERY 4 HOURS NEEDED FOR NAUSEA AND VOMITING No promethazi ne 25 mg tablet TAKE 1 TABLET BY MOUTH EVERY 4 HOURS NEEDED FOR NAUSEA AND VOMITING [facility] Select-OB + DHA 29 mg iron-1 mg-250 mg oral pack TAKE 1 PACKET BY MOUTH ONCE DAILY (1 CAPSULE 1 TABLET) Select-OB + DHA 29 mg iron-1 mg-250 mg oral pack TAKE 1 PACKET BY MOUTH ONCE DAILY (1 CAPSULE 1 TABLET) No Select-OB + DHA 29 mg iron-1 mg-250 mg oral pack TAKE 1 PACKET BY MOUTH ONCE DAILY (1 CAPSULE 1 TABLET) [facility] Ubrelvy 100 mg tablet Take 1 tablet every day by oral route as needed. Ubrelvy 100 mg tablet Take 1 tablet every day by oral route as needed. No 1 Q1D Ubrelvy 100 mg tablet Take 1 tablet every day by oral route as needed. [facility] Ubrelvy 50 mg tablet Take 1 tablet every day by oral route. Ubrelvy 50 mg tablet Take 1 tablet every day by oral route. No 1 Q1D Ubrelvy 50 mg tablet Take 1 tablet every day by oral route. [facility] Vital Signs Vital Name Observation Time Observation Value Comments Cordell wesley Systolic blood pressure 2021-08-06 16:39:00 112 mm[Hg] [facility] Diastolic blood pressure 2021-08-06 16:39:00 78 mm[Hg] [facility] Heart rate 2021-08-06 16:36:00 87 /min Un[facility] Body temperature 2021-08-06 16:36:00 37 [facility] Respiratory rate 2021-08-06 16:36:00 18 /min [facility] Body height 2021-08-06 16:36:00 149.9 cm [facility] Body weight 2021-08-06 16:36:00 36.197 kg [facility] BMI 2021-08-06 16:36:00 16.12 kg/m2 [facility] Systolic blood pressure 2021-05-12 19:05:00 142 mm[Hg] [facility] Diastolic blood pressure 2021-05-12 19:05:00 94 mm[Hg] [facility] Heart rate 2021-05-12 19:04:00 94 /min [facility] Body temperature 2021-05-12 19:04:00 37.11 [facility] Respiratory rate 2021-05-12 19:04:00 16 /min [facility] Body height 2021-05-12 19:04:00 149.9 cm [facility] Body weight 2021-05-12 19:04:00 35.743 kg [facility] BMI 2021-05-12 19:04:00 15.92 kg/m2 [facility] Height 2021-03-23 00:00:00 59 [in_i] [facility] BMI (Body Mass Index) 2021-03-23 00:00:00 15.6 kg/m2 [facility] BP Systolic 2021-03-23 00:00:00 120 mm[Hg] [facility] Body Weight 2021-03-23 00:00:00 1232 [oz_av] [facility] BP Diastolic 2021-03-09 00:00:00 92 mm[Hg] [facility] Height 2021-03-09 00:00:00 59 [in_i] [facility] BMI (Body Mass Index) 2021-03-09 00:00:00 15.3 kg/m2 [facility] BP Systolic 2021-03-09 00:00:00 140 mm[Hg] [facility] Body Weight 2021-03-09 00:00:00 1216 [oz_av] [facility] BP Diastolic 2021-02-27 00:00:00 70 mm[Hg] [facility] Height 2021-02-27 00:00:00 59 [in_i] [facility] BMI (Body Mass Index) 2021-02-27 00:00:00 15.5 kg/m2 [facility] BP Systolic 2021-02-27 00:00:00 116 mm[Hg] [facility] Body Weight 2021-02-27 00:00:00 1224 [oz_av] [facility] BP Diastolic 2021-02-12 00:00:00 62 mm[Hg] [facility] Height 2021-02-12 00:00:00 59 [in_i] [facility] BMI (Body Mass Index) 2021-02-12 00:00:00 15.8 kg/m2 [facility] BP Systolic 2021-02-12 00:00:00 92 mm[Hg] [facility] Body Weight 2021-02-12 00:00:00 1248 [oz_av] [facility] Procedures Procedure Date / Time Performed Performing Clinicia n Source GARDASIL 9 (HPV 9V) VACCINE 2021-05-12 19:19:17 Gwendolyn Paniagua [facility], head, w/o contrast 2021-02-27 00:00:00 [facility] Drainage of Abscess [facility] Plan of Care Planned Activity Planned Date Details Comments Source Diagnostic Test Pending 2021-02-12 00:00:00 CBC w/ auto diff [code = CBC w/ auto diff] [facility] Diagnostic Test Pending 2021-02-12 00:00:00 TSH, serum or plasma [code = TSH, serum or plasma] [facility] Diagnostic Test Pending 2021-02-12 00:00:00 CMP, serum or plasma [code = CMP, serum or plasma] [facility] Encounters Start Date/Time End Date/Time Encounter Type Admission Type Attending Clinicians Care Facility Care Department Encounter ID Source 2021-04-12 10:22:40 Emergency X [facility] DALE [id number] [facility] 2021-04-12 09:38:57 Emergency [facility] [id number] [facility] 2021-04-10 19:34:52 Outpatient P [facility] SABINA [id number] [facility] 2021-04-09 11:46:29 Emergency [facility] [id number] [facility] 2023-02-21 15:27:39 2023-02-21 15:27:39 Outpatient [facility] [id number] Cristiano Stephen 2023-01-18 15:05:16 2023-01-18 15:05:16 Outpatient [facility] [id number] Cristiano Stephen 2021-10-29 10:30:00 2021-10-29 10:30:00 Outpatient R TANIYA WHARTON [facility] [id number] [facility] 2021-08-06 10:30:00 2021-08-06 10:45:35 Nurse Visit Visit, [facility] Nurse Jesus Bravo [facility] BIOLOGY PROFESSOR [facility] & CHILD [facility] [id number] 350.1.13.10 [id number] [id number] [facility] 2021-08-06 10:30:00 2021-08-06 10:30:00 Outpatient JESUS SHEPHERD [facility] [id number] [facility] 2021-05-12 13:00:00 2021-05-12 13:37:16 Outpatient R GWENDOLYN PANIAGUA [facility] [id number] [facility] 2021-05-12 12:55:58 2021-05-12 13:37:16 Office Visit Gwendolyn Paniagua [facility] BIOLOGY PROFESSOR [facility] CHILD [facility] 1..840.114 350.1.13.10 [id number] [id number] [facility] 2021-03-23 02:45:00 2021-03-23 02:45:00 Outpatient ERICKSON_R [facility] [id number] 2021-03-23 00:00:00 2021-03-23 00:00:00 Outpatient Rupesh Vo [facility] [id number] 2021-03-23 00:00:00 2021-03-23 00:00:00 Rupesh Vo, DO: [address] [place] [address] , Ph. [facility], DR. VO [id number] [facility] 2021-03-09 12:32:00 2021-03-09 12:32:00 Outpatient ERICKSON_R [facility] [id number] [facility] 2021-03-09 00:00:00 2021-03-09 00:00:00 Outpatient Rupesh Vo [facility] [id number] 00:00:00 2021-03-09 00:00:00 Rupesh Vo, DO: [address] [place] [address] , Ph. [facility], DR. VO [id number] [facility] 2021-02-27 11:46:00 2021-02-27 11:46:00 Outpatient ERICKSON_R [facility] [id number] [facility] 2021-02-27 00:00:00 2021-02-27 00:00:00 Outpatient Rupesh Vo [facility] [id number] 2021-02-27 00:00:00 2021-02-27 00:00:00 Rupesh Vo, DO: [address] , [place] [address] , Ph. [facility], DR. VO [id number] [facility] 2021-02-17 14:51:27 2021-02-17 15:16:50 Nurse Visit Visit, [facility] Nurse Jesus Bravo [facility] BIOLOGY PROFESSOR [facility] MATERNAL & [facility]ILD [facility] 1.2.840.114 350.1.13.10 4.2.7.2.686 [id number] [facility] 2021-02-17 15:00:00 2021-02-17 15:00:00 Outpatient R [facility] [id number] [facility] 2021-02-17 13:00:00 2021-02-17 13:00:00 Outpatient R [facility] [id number] [facility] 2021-02-12 09:58:00 2021-02-12 09:58:00 Outpatient DENISE [facility] [id number] [facility] 2021-02-12 00:00:00 2021-02-12 00:00:00 Outpatient Rupesh Vo [facility] [id number] 00:00:00 2021-02-12 00:00:00 Rupesh Vo, DO: [address] , [place] [address] , Ph. [facility], DR. VO [id number] [facility] 2020-11-24 12:45:47 2020-11-24 13:14:58 [facility] Jesus Bravo R [facility] BIOLOGY PROFESSOR [facility] MATERNAL & [facility]ILD [facility] [id number] 350.1.13.10 4.2.7.2.686 [id number] [facility] 2020-11-24 13:00:00 2020-11-24 13:00:00 Outpatient R [facility] [id number] [facility] 2020-09-09 18:38:00 2020-09-09 20:41:00 Emergency Tash Davila [facility] 1.2.840.114 350.1.13.10 4.2.7.2.686 [id number] [facility] 2020-09-09 18:38:00 2020-09-09 20:41:00 Emergency Tash Davila [facility] 1.2.840.114 350.1.13.10 4.2.7.2.686 [id number] 2020-09-09 00:00:00 2020-09-09 00:00:00 Orders Only Doctor Unassigned, [place] [facility] 1.2.840.114 350.1.13.10 4.2.7.2.686 [id number] [facility] 2020-09-09 00:00:00 2020-09-09 00:00:00 Orders Only Doctor Unassigned, [place] [facility] 1.2.840.114 350.1.13.10 4.2.7.2.686 [id number] 2020-09-01 13:30:00 2020-09-01 13:30:00 Outpatient R [facility] [id number] [facility] 2020-09-01 13:14:18 2020-09-01 13:29:18 Nurse Visit Visit, [facility] Nurse Jesus Bravo [facility] BIOLOGY PROFESSOR [facility] & CHILD [facility] 1.2.840.114 350.1.13.10 4.2.7.2.686 [id number] [facility] 2020-09-01 13:14:18 2020-09-01 13:29:18 [facility] Visit Visit, [facility] BIOLOGY PROFESSOR [facility] 1.2.840.114 350.1.13.10 4.2.7.2.686 [id number] 2020-09-01 00:00:00 2020-09-01 00:00:00 Orders Only Doctor Unassigned, [place] [facility] 1.2.840.114 350.1.13.10 4.2.7.2.686 [id number] [facility] 2020-09-01 00:00:00 2020-09-01 00:00:00 Orders Only Doctor Unassigned, [place] [facility] 1.2.840.114 350.1.13.10 4.2.7.2.686 [id number] 2020-08-27 09:00:00 2020-08-27 09:00:00 Outpatient R [facility] [id number] [facility] 2020-08-26 11:00:00 2020-08-26 11:00:00 Outpatient R [facility] [id number] [facility] 2020-06-27 11:57:00 2020-06-27 11:57:00 Outpatient ERICKSON_R [id number] 2020-06-24 12:55:00 2020-06-24 12:55:00 Outpatient ERICKSON_R [facility] [id number] [facility] 2020-06-24 00:00:00 2020-06-24 00:00:00 Outpatient Rupesh Vo [facility] [id number] 2020-06-24 00:00:00 2020-06-24 00:00:00 Rupesh Vo, DO: [address], [address], [place] [address] , Ph. [phone] [place] [address] - [facility] - [facility], DR. VO [id number] [facility] 2020-06-03 10:00:12 2020-06-03 10:31:51 [facility], [facility] Taniya Wharton [facility] BIOLOGY PROFESSOR [facility] MATERNAL & CHILD [facility] 1.2.840.114 350.1.13.10 4.2.7.2.686 [id number] [facility] 2020-06-03 10:00:12 2020-06-03 10:31:51 Nurse Visit Visit, [place] Nurse [facility] BIOLOGY PROFESSOR [facility] MATERNAL & CHILD [facility] 1.2.840.114 350.1.13.10 4.2.7.2.686 [id number] 2020-06-03 10:00:00 2020-06-03 10:00:00 Outpatient R [facility] [id number] [facility] 2020-06-03 00:00:00 2020-06-03 00:00:00 Telephone Jesus Bravo [facility] BIOLOGY PROFESSOR [facility] MATERNAL & CHILD [facility] 1.2.840.114 350.1.13.10 4.2.7.2.686 [id number] [facility] 2020-06-03 00:00:00 2020-06-03 00:00:00 Telephone Jesus Bravo [facility] BIOLOGY PROFESSOR [facility] MATERNAL & CHILD [facility] 1.2.840.114 350.1.13.10 4.2.7.2.686 [id number] 2020-04-17 13:18:15 2020-04-17 13:58:29 Office Visit Jesus Bravo [facility] BIOLOGY PROFESSOR [facility] MATERNAL & CHILD [facility] 1.2.840.114 350.1.13.10 4.2.7.2.686 [id number] [facility] 2020-04-17 13:18:15 2020-04-17 13:58:29 Office Visit Jesus Bravo [facility] BIOLOGY PROFESSOR [facility] MATERNAL & CHILD [facility] 1.2.840.114 350.1.13.10 4.2.7.2.686 [id number] 2020-04-17 13:15:00 2020-04-17 13:15:00 Outpatient R JESUS BRAVO [facility] [id number] [facility] 2020-03-26 14:57:11 2020-03-26 15:17:44 Routine Visit Jesus Bravo [facility] BIOLOGY PROFESSOR [facility] & CHILD [facility] 1.2.840.114 350.1.13.10 4.2.7.2.686 [id number] [facility] 2020-03-26 15:15:00 2020-03-26 15:15:00 Outpatient R JESUS BRAVO [facility] [id number] [facility] 2020-03-08 05:46:00 2020-03-09 12:45:00 Hospital Encounter Piper Santos [facility] 1.2.840.114 350.1.13.10 4.2.7.2.686 [id number] [facility] 2020-03-05 14:41:08 2020-03-05 14:56:08 Routine Visit Jesus Bravo [facility] BIOLOGY PROFESSOR [facility] & CHILD [facility] 1.2.840.114 350.1.13.10 4.2.7.2.686 [id number] [facility] 2020-03-05 14:45:00 2020-03-05 14:45:00 Outpatient R JESUS BRAVO [facility] [id number] [facility] 2020-02-27 15:10:42 2020-02-27 15:31:06 Routine Visit Jesus Bravo [facility] BIOLOGY PROFESSOR [facility] & CHILD [facility] 1.2.840.114 350.1.13.10 4.2.7.2.686 [id number] [facility] 2020-02-27 15:15:00 2020-02-27 15:15:00 Outpatient JESUS SHEPHERD [facility] [id number] [facility] 2020-02-22 00:00:00 2020-02-22 00:00:00 Telephone Jesus Bravo [facility] BIOLOGY PROFESSOR [facility] MATERNAL & CHILD [facility] 1.2.840.114 350.1.13.10 4.2.7.2.686 [id number] [facility] 2020-02-20 13:37:48 2020-02-20 14:35:05 Routine Visit Jesus Bravo [facility] BIOLOGY PROFESSOR [facility] & CHILD [facility] 1.2.840.114 350.1.13.10 4.2.7.2.686 [id number] [facility] 2020-02-20 13:45:00 2020-02-20 13:45:00 Outpatient JESUS SHEPHERD [facility] [id number] [facility] 2020-02-19 15:15:00 2020-02-19 15:15:00 Outpatient JESUS SHEPHERD [facility] [id number] [facility] 2020-02-11 10:54:41 2020-02-11 11:26:57 Routine Visit Jesus Bravo [facility] BIOLOGY PROFESSOR [facility] & CHILD [facility] 1.2.840.114 350.1.13.10 4.2.7.2.686 [id number] [facility] 2020-02-11 11:00:00 2020-02-11 11:00:00 Outpatient R [facility]RAVO [facility] [facility] [id number] [facility] 2020-02-04 13:00:00 2020-02-04 13:00:00 Outpatient R JESUS BRAVO [facility] [id number] [facility] 2020-01-21 15:01:59 2020-01-21 15:16:59 Routine Visit Baron Jesus [facility] BIOLOGY PROFESSOR [facility] MATERNAL & [facility]ILD [facility] [id number] [id number] [id number] [id number] [facility] 2020-01-21 15:15:00 2020-01-21 15:15:00 Outpatient R JESUS BRAVO [facility] [id number] [facility] 2020-01-16 09:45:00 2020-01-16 09:45:00 Outpatient R JESUS BRAVO [facility] [id number] [facility] 2020-01-10 13:30:00 2020-01-10 13:30:00 Outpatient R JESUS BRAVO [facility] [id number] [facility] 2020-01-03 09:30:00 2020-01-03 09:30:00 Outpatient R JESUS BRAVO [facility] [id number] [facility] 2019-12-28 00:00:00 2019-12-28 00:00:00 Telephone Veronika Raman [facility] [id number] [id number] [id number] [id number] [facility] 2019-12-28 00:00:00 2019-12-28 00:00:00 Telephone Jesus Bravo [facility] BIOLOGY PROFESSOR [facility] & CHILD [facility] [id number] [id number] [id number] [id number] [facility] 2019-12-25 11:40:00 2019-12-25 11:40:00 Outpatient R [facility] [id number] [facility] 2019-12-25 10:28:02 2019-12-25 10:48:02 Laboratory Only Lab, Adc Fam Pob I Veronika Raman [facility] 1..840.114 [id number] [id number] [id number] [facility] 2019-12-20 09:25:07 2019-12-20 09:40:07 Routine Visit Jesus Bravo [facility] BIOLOGY PROFESSOR [facility] & CHILD [facility] 1..840.114 [id number] [id number] [id number] [facility] 2019-12-20 09:30:00 2019-12-20 09:30:00 Outpatient Emeli JESUS BRAVO [facility] [id number] [facility] 2019-11-29 08:51:14 2019-11-29 09:34:58 Routine Visit BravoJesus [facility] BIOLOGY PROFESSOR [facility] & CHILD [facility] 1..840.114 350.1.13.10 [id number] [id number] [facility] 2019-11-29 08:45:00 2019-11-29 08:45:00 Outpatient R JESUS BRAVO [facility] [id number] [facility] 2019-11-01 10:30:00 2019-11-01 10:30:00 Outpatient Emeli JESUS BRAVO [facility] [id number] [facility] 2019-11-01 08:26:37 2019-11-01 08:41:37 Telemedici ne Visit Jesus Bravo [facility] BIOLOGY PROFESSOR [facility] & CHILD [facility] [id number] [id number] [id number] [id number] [facility] 2019-10-24 12:56:30 2019-10-24 13:56:30 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 Visit Ultrasound, Newton Cai [facility] BIOLOGY PROFESSOR [facility] & CHILD [facility] [id number] 350.1.13.10 [id number] [id number] [facility] 2019-10-24 13:00:00 2019-10-24 13:00:00 Outpatient P [facility] [id number] [facility] 2019-10-24 00:00:00 2019-10-24 00:00:00 Abstract Eitan Bravotruemil [facility] BIOLOGY PROFESSOR [facility] CHILD [facility] [id number] 350.1.13.10 4.2.7.2.686 [id number] [facility] 2019-10-23 00:00:00 2019-10-23 00:00:00 Orders Only Doctor Unassigned, [place] [facility] [id number] 350.1.13.10 4.2.7.2.686 [id number] [facility] 2019-10-08 08:45:00 2019-10-08 08:45:00 Outpatient R RICH BRAVOCELIO [facility] [id number] [facility] 2019-09-10 09:17:47 2019-09-10 09:32:47 Routine Visit Pb Bravoemil Emeli [facility] BIOLOGY PROFESSOR [facility] CHILD [facility] [id number] 350.1.13.10 4.2.7.2.686 [id number] [facility] 2019-09-10 09:30:00 2019-09-10 09:30:00 Outpatient R BRAVO, JESUS [facility] [id number] [facility] 2019-08-27 09:29:11 2019-08-27 10:42:59 Routine Visit Faculty, Velasquez Yancey [facility] BIOLOGY PROFESSOR [facility] MATERNAL & CHILD [facility] 1..114 350.1.13.10 4.2.7.2.686 [id number] [facility] 2019-08-27 09:30:00 2019-08-27 09:30:00 Outpatient R [facility] [id number] [facility] 2019-08-13 15:08:00 2019-08-13 15:38:00 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 Visit Ultrasound, Sarah Montanez [facility] BIOLOGY PROFESSOR [facility] MATERNAL & CHILD [facility] 1..114 350.1.13.10 4.2.7.2.686 [id number] [facility] 2019-08-13 15:15:00 2019-08-13 15:15:00 Outpatient P [facility] [id number] [facility] 2019-08-13 00:00:00 2019-08-13 00:00:00 Abstract Jesus Bravo [facility] BIOLOGY PROFESSOR [facility] & CHILD [facility] 1..114 350.1.13.10 4.2.7.2.686 [id number] [facility] 2019-08-10 18:38:08 2019-08-10 20:30:00 Emergency Kade Lee [facility] 1..114 350.1.13.10 4.2.7.2.686 [id number] [facility] 2019-08-09 00:00:00 2019-08-09 00:00:00 Telephone Jesus Bravo [facility] BIOLOGY PROFESSOR [facility] & CHILD [facility] [id number] 350.1.13.10 4.2.7.2.686 [id number] [facility] 2019-08-08 09:32:21 2019-08-08 10:51:53 Initial Visit Jesus Bravo [facility] BIOLOGY PROFESSOR [facility]ER[facility] & [facility] 1.0.114 350.1.13.10 4.2.7.2.686 [id number] [facility] 2019-08-08 09:15:00 2019-08-08 09:15:00 Outpatient R JESUS BRAVO [facility] [id number] [facility] 2019-08-04 17:44:54 2019-08-04 18:44:00 Emergency Kade Lee [facility] 1.0.114 350.1.13.10 4.2.7.2.686 [id number] [facility] 2019-08-04 17:44:54 2019-08-04 18:44:00 Emergency X KADE LEE [facility] ERT [id number] [facility] 2019-07-08 15:16:05 2019-07-08 18:14:00 Emergency Tanesha Thurston [facility] 1.0.114 350.1.13.10 4.2.7.2.686 [id number] [facility] 2019-07-08 15:16:05 2019-07-08 18:14:00 Emergency X ARVINTANESHA SANFORD [facility] ERT [id number] [facility] 2019-07-08 00:00:00 2019-07-08 00:00:00 Orders Only Doctor Unassigned, [place] [facility] 1.840.114 350.1.13.10 [id number] [id number] [facility]
[2023-12-09 21:03] LABS: Absolute Basophils 0.1 K/uL (0-0.5); Absolute Eosinophils 0.2 K/uL (0-0.5); Absolute Lymphocytes (CBC) 3.7 K/uL (0.7-4.9); Absolute Monocytes 0.5 K/uL (0.1-1.3); Absolute Neutrophil 3.7 K/uL (1.8-8.0); Basophils % 0.8 % (0-1.3); Eosinophils % 2.8 % (0-4.4); Hemoglobin 13.1 g/dL (12.0-15.0); Lymphocytes % 45.1 % (15.3-44.8); MCH 28.6 pg (27.0-35.0); MCHC 33.7 g/dL (32.0-36.0); MCV 84.9 fL (80-100); MPV 9.5 fL (7.6-11.3); Monocytes % 5.6 % (3.3-12.3); Neutrophils % 45.7 % (41.7-73.7); Nucleated Red Blood Cells % 0.1 % (0-0); Platelets 266 thou/uL (152-406); RBC Red Blood Cell Count 4.59 M/uL (3.86-4.86); Red Cell Distribution Width 13.4 % (12.1-15.2)
[2023-12-09 21:10] LABS: Specific Gravity 1.028 (1.005-1.030)
[2023-12-09 21:13] LABS: Specific Gravity 1.028 (1.005-1.030); Sqamous Epithelial <5 /HPF (None Seen); Urine Bacteria None Seen /HPF (<20); Urine Bilirubin NEGATIVE (Negative); Urine Blood 2+ (Negative); Urine Clarity Clear (Clear); Urine Color Light-Yellow (Yellow); Urine Culture Reflex Order NOT NEEDED; Urine Glucose NEGATIVE (Negative); Urine Ketones NEGATIVE (Negative); Urine Microscopic Reflex YN ORDER UMIC; Urine Mucus 1+ /HPF (None Seen); Urine Nitrite NEGATIVE (Negative); Urine Protein TRACE (Negative); Urine RBC <5 /HPF (None Seen); Urine Urobilinogen Normal (Normal); Urine WBC <5 /HPF (<5)
[2023-12-09] MEDS ORDERED: ONDANSETRON 4 MG/2 ML VIAL ONE (21:17)
[2023-12-09] MEDS ORDERED: KETOROLAC 30 MG/ML INJ ONE (21:17)
[2023-12-09] MEDS ORDERED: NA CHLORIDE 0.9% 1,000 ML ONE (21:18)
[2023-12-09 21:20] LABS: ALT/SGPT 20 U/L (13-56); Albumin 4.1 g/dL (3.4-5.0); Albumin/Globulin Ratio 1.2 (1.1-1.8); Alkaline Phosphatase 104 U/L (45-117); Anion Gap 6.7 mEq/L (5.0-15.0); BUN Blood Urea Nitrogen 11 mg/dL (7-18); Bicarbonate 29 mEq/L (21-32); Bilirubin Total 0.2 mg/dL (0.2-1.0); Globulin 3.3 g/dL (2.3-3.5); Glomerular Filtration Rate 123 ml/min (=/>90); Glucose Level 92 mg/dL (74-106); Potassium 3.7 mEq/L (3.5-5.1); Protein, Total 7.4 g/dL (6.4-8.2); Sodium Level 139 mEq/L (136-145)
[2023-12-09 21:21] LABS: AST/SGOT < 10 U/L (15-37)
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
[2023-12-10 00:08] VITALS: BP 128/84; TEMP 97.5; O2SAT 100
== END 2023-12-09 23:38 | disposition home or self-care (01) ==
LOC: ER 19:58
DX: S29.012A Strain of muscle and tendon of back wall of thorax, initial encounter (principal); M62.830 Muscle spasm of back; V49.49XA Driver injured in collision with other motor vehicles in traffic accident, initial encounter
CPT/HCPCS: 36415; 70450; 71250; 72125; 80053; 81001; 81025; 85025; 96374; 96375; 99284; J2405; J7030